=== PATIENT | female | born 1950 | race Caucasian/White ===

== ENCOUNTER → 2020-09-23 08:27 | Outpatient (CLI) | payer MEDICARE, SELFPAY ==
[2020-05-26 13:18] VITALS: BMI 29.2
--- NOTE | 2020-09-23 08:29 | BI_ITS ---
MAMMOGRAPHY - BILATERAL SCREENING REASON FOR EXAM: Female, 69 years old. Routine annual screening examination. PERTINENT HISTORY: Non-contributory. TECHNIQUE: Digital bilateral breast neelam (3D mammographic acquisition) in the CC and MLO projections. 2-D mediolateral oblique (MLO) and craniocaudad (CC) views of both breasts were obtained. CAD: Full Field Digital Mammography with Computer Added Detection was performed. COMPARISON: Comparison is made with prior study dated 05/20/2015. Comparison is also made with prior outside mammogram dated 08/07/2019. FINDINGS: Breast Composition: The breasts are heterogeneously dense, which may obscure small masses. There are no dominant masses or suspicious calcifications. Stable asymmetry of breast tissue with more breast tissue is seen in the retroareolar region of the right breast as compared to the left side. No other significant abnormalities are identified. There has been no significant change since the prior study. BI/SCREEN MAMM (CAD) W/NEELAM BILAT IMPRESSION: Stable bilateral screening mammogram. Yearly follow-up mammogram recommended. (A) ASSESSMENT CATEGORY: BIRADS Category 2: Benign. A letter regarding these results will be sent to the patient by the facility within 30 days. Approximately 10% of breast cancers are not detected by mammography. A normal mammogram should not delay biopsy of a clinically suspicious abnormality. [id number] Electronically Signed: Cruz Castaneda, at 9:27 EST , Service support ,
--- NOTE | 2020-09-23 09:01 | BD_ITS ---
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 COMPARISON: None. FINDINGS: Lumbar Spine (L1-L4): g/cm2 (1.267) / T-score (0.8) / Z-score (2.5) Findings are suggestive of normal bone density with a low fracture risk. Left Femur Total: g/cm2 (1.115) / T-score (0.9) / Z-score (2.3) Left Femoral Neck: g/cm2 (0.877) / T-score (-1.2) / Z-score (0.5) BD/Dexa Bone Density Study IMPRESSION: The patient is considered osteopenic as outlined below according to World Lion Organization (WHO) criteria with a low fracture risk. Reference Information: The T-score is the number of standard deviations above or below the standard which is normal for young adults at their peak bone mineral density. The World Health Organization (WHO) interprets the T-scores as follows: Above -1 Normal bone density Between -1 and -2.5 Osteopenia Equal to / or below -2.5 Osteoporosis As a practical clinical guideline, osteopenia may be graded as follows: Mild -1 through -1.5 Moderate -1.6 through -2.0 Severe -2.1 through -2.4 The Z-score is the number of standard deviations above or below age-matched controls. A Z-score of less than -1.5 would be considered abnormal. References: 1. NIH Osteoporosis and Related Bone Diseases www osteo.org 2. International Society for Clinical Densitometry www iscd.org 3. National Osteoporosis Foundation www nof.org Electronically Signed: Cruz Castaneda, at 10:55 EST , Service support ,
== END ==
PROVIDERS: PCP Internal Medicine; Referring Provider Internal Medicine; Visit Provider Internal Medicine
DX: Z12.31 Encounter for screening mammogram for malignant neoplasm of breast (principal); Z78.0 Asymptomatic menopausal state
CPT/HCPCS: 77063; 77067; 77080

== ENCOUNTER → 2021-07-15 16:32 | Outpatient (CLI) | payer MEDICARE, SELFPAY ==
[2021-07-18 03:07] LABS: Covid Inpatient test code BILL Performed (.)
== END ==
PROVIDERS: PCP Internal Medicine; Visit Provider Internal Medicine
DX: J06.9 Acute upper respiratory infection, unspecified (principal)
CPT/HCPCS: 87635; U0005; U0003

== ENCOUNTER 2021-07-19 06:04 | Inpatient (IN) | payer MEDICARE, SELFPAY ==
[2021-07-19] VITALS (9 sets, daily range): BP systolic 119–140; BP diastolic 60–100; PULSE 68–87; RESP 18–20; TEMP 36.7–39.5; O2SAT 89–97; BMI 31.4; BMI 30.1
--- NOTE | 2021-07-19 06:26 | RAD_ITS ---
STUDY: X-RAY CHEST REASON FOR EXAM: Female, 70 years old. Cough TECHNIQUE: Portable, upright, AP chest radiograph COMPARISON: None. FINDINGS: Diffuse bilateral pulmonary infiltrates. There is no demonstrated pleural abnormality. Normal size heart. Normal mediastinum and aquiles. Normal visualized pulmonary arteries. There is atherosclerotic calcification of the aortic arch with tortuosity. There are diffuse degenerative changes of the visualized thoracic spine. There is degenerative osteoarthritis of the bilateral shoulders. There is no demonstrated abnormality of the visualized soft tissue structures of the upper abdomen. RAD/Chest 1 View (Portable) IMPRESSION: Findings suggest multifocal pneumonia. Electronically Signed: Demarcus Victoria MD at 6:48 EDT Tel , Service support ,
--- NOTE | 2021-07-19 06:26 | EKG12_ITS ---
Test Reason : Blood Pressure : / mmHG Vent. Rate : 078 BPM Atrial Rate : 078 BPM P-R Int : 156 ms QRS Dur : 080 ms QT Int : 346 ms P-R-T Axes : 055 033 027 degrees QTc Int : 394 ms Normal sinus rhythm Normal ECG Confirmed by BELINDA MILLER MD ([id number]), web editor DORIS DURANT ([id number]) on 07/20/2021 1:36:55 PM Referred By: OLIVIA Confirmed By:BELINDA MILLER MD
[2021-07-19 06:35] LABS: Absolute Lymphocyte Count 0.97 X10^3/uL (0.83-4.51); Absolute Neutrophil Count 2.9 X10^3/uL (2.0-7.7); Basophil# 0.01 X10^3/uL; Basophil% 0.2 % (0-1); Hematocrit 38.8 % (37-47); Lymphocyte # 0.97 X10^3/ul (0.83-4.51); Lymphocyte % 23.9 % (19-41); Mean Corp Hgb Conc 33.5 g/dL (32-36); Mean Corpuscular Hgb 30.1 pg (27.0-32.0); Mean Corpuscular Volume 89.8 fL (81-99); Monocyte# 0.13 X10^3/uL; Monocyte% 3.2 % (0-10); NRBC Flagged by Analyzer 0 % (0-5); Neutrophil # 2.89 X10^3/uL (2.7-7.7); Neutrophil % 71.2 % (47-70); POSITIVE MORPHOLOGY YES; Platelet Count 303 K/mm3 (150-450); RBC Distribution Width CV 11.8 % (11.6-14.6); RBC Distribution Width SD 38.5 fl (35.1-43.9); Red Blood Count 4.32 M/mm3 (4.2-5.4); White Blood Count 4.1 K/mm3 (4.4-11.0)
[2021-07-19 06:38] LABS: Differential Indicated SCAN CRITERIA MET
[2021-07-19] MEDS: dexAMETHasone 10 MG/ML Vial IV (06:40)
[2021-07-19 06:46] LABS: Anion Gap 9 (5-15); BUN 15 mg/dL (7-18); BUN/Creat Ratio 19.9 RATIO (10-20); Calcium,Total 8.9 mg/dL (8.5-10.1); Chloride 93 mmol/L (98-107); Creatinine, Serum 0.75 mg/dL (0.55-1.02); EST Glomerular Filtration Rate 81 mL/min (>60); Est Glom Filt Rate - Afr Amer 98 mL/min (>60); Glucose 111 mg/dL (74-106); Magnesium 1.9 mg/dL (1.6-2.6); Sodium Level 129 mmol/L (136-145); Troponin-I HS 14 pg/mL (3.0-54.0)
[2021-07-19 06:52] LABS: Differential Comment SCANNED
[2021-07-19 06:53] LABS: Atypical Lymphocyte RARE %
--- NOTE | 2021-07-19 07:45 | EDS_ITS ---
HPI History of Present Illness Chief Complaint: Weakness Narrative Narrative: Patient is a 70-year-old female from home with no past medical history of lung disorder need for supplemental oxygen. She began having congestion fatigue and cough approximately 10 to 12 days ago. She consulted her family doctor and had a Covid swab obtained. It took approximately 4 to 5 days to return and did come back positive. The family doctor was trying to contact the patient but no one would answer the phone and therefore she sent a nurse to the patient's house. Nurse reports that upon arrival the patient's room air pulse ox was 80% and patient had increased work of breathing. The patient has no need for supplemental oxygen and with her worsening symptoms and hypoxia was sent to the ER for evaluation by EMS. PFSH PFS Home Medications multivitamin with minerals [Multi-Daily W/Minerals] 1 tab PO DAILY 07/19/21 [History Last Taken Unknown] Allergy/AdvReac Type Severity Reaction Status Date / Time No Known Allergies Allergy Unverified 07/19/21 06:08 Surgical History History of right hip replacement Social History (Updated 05/26/20 @ 13:[address] Crystal [place], [place]) Smoking Status: Never smoker alcohol intake: never substance use type: does not use what type of physical activity do you participate in: none ROS ROS ED Constitutional Constitutional ED: Reports chills and fever(s) Eyes Eyes: Denies change in vision ENT ENT ED: Reports rhinorrhea; Denies sore throat Cardiovascular Cardiovascular: Denies chest pain Respiratory/Chest Respiratory/Chest: Reports cough and dyspnea Gastrointestinal Gastrointestinal: Denies abdominal pain, diarrhea, nausea or vomiting Genitourinary Genitourinary ED: Denies dysuria Musculoskeletal Musculoskeletal: Reports myalgias Integumentary Denies rash Neurologic Neurologic: Denies headache(s) Hematologic/Lymphatic Hematologic/Lymphatic: Denies easy bleeding or easy bruising EXAM Physical Exam Const Vital Signs: 07/19/21 06:05 07/19/21 06:10 Temperature 99.5 F H 99.5 F H Temperature Source Oral Oral Pulse Rate 84 84 Respiratory Rate 20 H 20 H Respiratory Effort Normal Non-Labored Blood Pressure 127/100 H 127/100 H Blood Pressure Mean 109 109 Pulse Ox 89 89 Oxygen Delivery Method Room Air Room Air Positive well nourished and well developed General Appearance ED: well developed HEENT Reports moist mucous membranes HEENT Narrative: No tongue or lip swelling no oral lesions no airway edema or compromise. There is cobblestoning the posterior pharynx consistent with sinus drainage Eyes PERRL and EOMs intact bilaterally Neck supple Neck Narrative: Positive anterior cervical lymphadenopathy noted Chest Wall Chest Narrative: Reproducible anterior chest wall pain with palpation diffusely but no bony deformity or crepitance Resp Resp Narrative: Patient has mild tachypnea and accessory muscle use with diminished breath sounds and diffuse expiratory wheezes. Cardio regular rate and regular rhythm GI normal to inspection, nondistended, normoactive bowel sounds, non-tender and non-distended Auscultation: normoactive bowel sounds Palpation: soft Extremity normal to inspection Neuro oriented x3 and CN's II-XII intact bilaterally Sensorium / Orientation: alert Motor Exam: strength 5/5 throughout Psych mental status grossly normal Skin no rashes or lesions noted MDM MDM MDM Narrative Medical decision making narrative: Patient presented to the ER with a low-grade temperature most consistent with her recent Covid diagnosis. The family doctor and EMS reported patient was approximately 80% on room air. On 3 to 4 L nasal cannula she does increased to the mid 90s. With her known Covid diagnosis I elected to perform a chest x-ray initially which did show changes consistent with a Covid pneumonia. Otherwise there is no signs of cardiac damage or signs of sepsis. At this time because of her chest pain a D-dimer will be added and if it is greater than 1.5 a CTA will be ordered. However at this time as the patient has Covid pneumonia and has new onset hypoxia I do not feel it is safe for her to be discharged and she will be admitted to the hospital for further care Lab Data Labs: Laboratory Results - last 24 hr 07/19/21 07/19/21 07/19/21 06:15 06:15 06:15 WBC 4.1 L RBC 4.32 Hgb 13.0 Hct 38.8 MCV 89.8 MCH 30.1 MCHC 33.5 RDW Std Deviation 38.5 RDW Coeff of Saul 11.8 Plt Count 303 MPV 9.0 Immature Gran % (Auto) 1.500 H Neut % (Auto) 71.2 H Lymph % (Auto) 23.9 Henderson % (Auto) 3.2 Eos % (Auto) 0.0 Baso % (Auto) 0.2 Absolute Neuts (auto) 2.9 Absolute Lymphs (auto) 0.97 Nucleated RBC % 0 Differential Comment SCANNED Atypical Lymphocytes RARE Sodium 129 L Potassium 4.0 Chloride 93 L Carbon Dioxide 27.0 Anion Gap 9 BUN 15 Creatinine 0.75 Estim Creat Clear Calc 39.50 Est GFR (MDRD) Af Amer 98 Est GFR (MDRD) Non-Af 81 BUN/Creatinine Ratio 19.9 Glucose 111 H Lactic Acid 1.0 Calcium 8.9 Magnesium 1.9 Troponin I High Sens 14 Radiography Diagnostic Testing: Radiology Impression Chest X-Ray 07/19/21 06:26 IMPRESSION: Findings suggest multifocal pneumonia. Electronically Signed: Demarcus Victoria MD at 6:48 EDT Tel , Service support , Critical Care Time Critical Care Time: Yes Critical care time (excluding procedures): - (33 minutes) Discharge Plan Dx/Rx/DC Orders Clinical Impression: Acute respiratory failure with hypoxia, Pneumonia due to 2019-nCoV Disposition Disposition: Acute Care [facility]
--- NOTE | 2021-07-19 08:28 | HP.PCM.HOS_ITS ---
HPI - General General Date of Admission: 07/19/21 HPI Narrative ELVI ANGEL, is a 70 F with no significant past medical history, sent by PCP Dr. Diaz to ED for evaluation of URI symptoms. She tested positive of COVID- 19 PCR. Patient symptoms of COVID-19 and started with mild abdominal discomfort, diarrhea, loss of taste and smell on July 08. This gradually progressed to cough, URI symptoms with nasal congestion and chest congestion. Cough is dry. Her pulse ox was found in the 80s on room air at home therefore sent to ER. Patient also feels dyspnea on exertion. Patient denies prior chronic lung disease including asthma, COPD or smoking history. Denies chronic heart disease or diabetes mellitus. Twelve-lead EKG individually read as normal sinus rhythm 78 bpm, QTC 394 ms QRS 80 ms. Chest x-ray reviewed shows peripheral groundglass opacity consistent with pneumonia PFSH Home Medications multivitamin with minerals [Multi-Daily W/Minerals] 1 tab PO DAILY 07/19/21 [History Last Taken Unknown] Allergy/AdvReac Type Severity Reaction Status Date / Time No Known Allergies Allergy Unverified 07/19/21 06:08 Surgical History History of right hip replacement Social History Smoking Status: Never smoker alcohol intake: never substance use type: does not use what type of physical activity do you participate in: none ROS ROS Narrative Constitutional: Reports fatigue and weakness HEENT: Reports systems reviewed and no addt'l complaints, except as documented Respiratory/Chest: Pleuritic chest pain on coughing. Gastrointestinal: Denies coffee ground emesis, hematemesis or vomiting Genitourinary: Denies burning urination or new urinary tract symptoms Musculoskeletal: Reports joint pain and limited range of motion Neurologic: Denies seizure-like activity skin: No ulcer. No rash Endocrinology: Reports systems reviewed and no addt'l complaints, except as documented Hematologic/Lymphatic: Reports systems reviewed and no addt'l complaints, except as documented Rest 12 ROS are negative except as mentioned in HPI Vital Signs Vital Signs Vital Signs: 07/19/21 06:05 07/19/21 06:10 Temperature 99.5 F H 99.5 F H Temperature Source Oral Oral Pulse Rate 84 84 Respiratory Rate 20 H 20 H Respiratory Effort Normal Non-Labored Blood Pressure 127/100 H 127/100 H Blood Pressure Mean 109 109 Pulse Ox 89 89 Oxygen Delivery Method Room Air Room Air Weight Weight: 166 lb 7.184 oz Body Mass Index (BMI) 31.4 Physical Exam Narrative General: Alert, Oriented x3, Cooperative HEENT: Atraumatic, PERRLA, EOMI, Normocephalic Oral: No Gingival or Mucosal Lesions/ Ulcerations Neck: Supple, No JVD, Negative Carotid Bruits Lungs: Air entry diminished in bilateral lung bases. No crepitation/rhonchi. Mild hypoxia Cardiovascular: Regular rate, Regular Rhythm, Normal S1, Normal S2, No murmurs Abdomen: Bowel Sounds Present, Soft, Non Tender, Non-Distended : No renal angle tenderness. No suprapubic tenderness. Extremities: No edema, Capillary Refill Less than 3 Seconds Skin: No rashes, No breakdown Musculoskeletal: No Tenderness to Palpation of Joints or Extremities Neurological: Cranial nerves II-XII grossly intact, DTR 2+/4 and Symmetrical, Neuro grossly intact Psych/Mental Status: Normal Affect, Appropriate. Results Lab / Micro Data Result Diagrams: 07/19/21 06:15 07/19/21 06:15 Labs: Laboratory Results - last 24 hr 07/19/21 06:15: WBC 4.1 L, RBC 4.32, Hgb 13.0, Hct 38.8, MCV 89.8, MCH 30.1, MCHC 33.5, RDW Std Deviation 38.5, RDW Coeff of Saul 11.8, Plt Count 303, MPV 9.0, Immature Gran % (Auto) 1.500 H, Neut % (Auto) 71.2 H, Lymph % (Auto) 23.9, Wilbarger % (Auto) 3.2, Eos % (Auto) 0.0, Baso % (Auto) 0.2, Absolute Neuts (auto) 2.9, Absolute Lymphs (auto) 0.97, Nucleated RBC % 0, Differential Comment SCANNED, Atypical Lymphocytes RARE 07/19/21 06:15: Sodium 129 L, Potassium 4.0, Chloride 93 L, Carbon Dioxide 27.0, Anion Gap 9, BUN 15, Creatinine 0.75, Estim Creat Clear Calc 39.50, Est GFR (MDRD) Af Amer 98, Est GFR (MDRD) Non-Af 81, BUN/Creatinine Ratio 19.9, Glucose 111 H, Calcium 8.9, Magnesium 1.9, Troponin I High Sens 14 07/19/21 06:15: Lactic Acid 1.0 Micro: Microbiology 07/19/21 06:20 Nasal Secretion SARS-CoV-2 Antigen (Rapid) - Final SARS-CoV-2 (COVID 19) Radiology Impression Chest X-Ray 07/19/21 06:26 IMPRESSION: Findings suggest multifocal pneumonia. Electronically Signed: Demarcus Victoria MD at 6:48 EDT Tel , Service support , Assessment & Plan Assessment/Plan (1) Pneumonia due to 2019-nCoV: PLAN: This 70-year-old female is being admitted for bilateral COVID-19 pneumonia with mild hypoxia 1. Acute multifocal bilateral COVID-19 pneumonia with hypoxia: Patient is being admitted Medr floor on oxygen to keep pulse ox more than 90%. Decadron 6 mg IV daily started. Patient is out of window for remdesivir. Incentive spirometry PEP and Mucinex D. Consult ID to see any further treatment recommendation. Tongue culture and and ENT consulted 2. Elevated D-dimer: Patient does not have history of previous DVT or PE. CT angiogram ordered. Moderate risk for DVT/PE 3. Moderate hyponatremia and hypochloremia: On IV fluid normal saline VTE prophylaxis: Lovenox 30 mg subcu twice daily. If CT angiogram comes positive for DVT/PE, will convert to full anticoagulation Living will/advanced directive/end of life care: Patient does have living will or advanced directive. After discussion of benefits/risks procedures involved with full code, DNR CC arrest and DNR CC, the patient opted for full code. Patient does want artificial life support including intubation, tube feed, ventilator and/chest compression, central venous catheter, vasopressor and DC shock if needed Total time spent in [id number] encounter in discussion of advanced direc tive 16 minutes. Charges/Coding Visit Charges Inpatient E&M: 07607 Init Hosp L3 Procedures Hospitalists Procedures: 00440 Advncd Care Plan 30 Min
[2021-07-19 08:34] LABS: D-Dimer Quantitative (DVT/PE) 1.42 FEU/ug/m (0.27-0.49)
--- NOTE | 2021-07-19 08:40 | CT_ITS ---
STUDY: CTA CHEST/THORAX REASON FOR EXAM: Female, 70 years old. HIGH D-dimer with Covid 19. WEAKNESS, STOMACH CRAMPS X 12 DAYS RADIATION DOSAGE (If Supplied By Facility): CTDIvol = ( 12.58 ) mGy, DLP = ( 377.86 ) mGycm TECHNIQUE: The examination was performed with the intravenous administration of IV 100mL Isovue-370. Post-processing of the angiographic images was performed, with multiplanar reformation. No 3D reconstruction. Individualized dose optimization techniques were used for this CT. COMPARISON: AP portable upright chest x-ray 0625 hours. FINDINGS: Normal enhancement of the main pulmonary artery and right and left pulmonary arteries. Normal enhancement of the bilateral peripheral pulmonary arteries. There is no demonstrated pulmonary embolism. There is minor atherosclerotic calcification of the aortic arch. There is no demonstrated aortic dissection. Normal heart and pericardium. Normal upper mediastinum and right hilum. There are upper normal-sized lymph nodes in the subcarinal tissues and left hilum. Normal visualized trachea and bronchi. There are ill-defined patchy, groundglass or cotton candy infiltrates predominating in the periphery of the bilateral lung prabhakar, consistent with infection, including viral pneumonia such as Covid 19. Normal pleura. Normal chest wall structures. There are degenerative changes of the thoracic spine with multilevel bridging and near bridging right anterolateral endplate osteophytes at the mid to lower thoracic levels. Normal visualized upper abdomen. CT/CTA Chest W/WO Contrast IMPRESSION: 1. No a demonstrated pulmonary embolism or arterial dissection. 2. Bilateral diffuse, ill-defined, peripheral pulmonary densities consistent with infection, including viral pneumonia such as Covid 19. Electronically Signed: Jonny Yu MD at 9:40 EDT , Service support ,
[2021-07-19 08:42] LABS: Magnesium 2.1 mg/dL (1.6-2.6)
--- NOTE | 2021-07-19 08:44 | PCS.PANDOC ---
PANDEMIC DOCUMENTATION INITIATED: Date: 07/19/21 Time: 843
[2021-07-19] MEDS: Acetaminophen 325 MG Tablet 650 MG PO (10:01)
[2021-07-19] MEDS: 0.9% Normal Saline 1,000 ML 75 ML IV (10:16)
[2021-07-19 11:07] LABS: Prothrombin Time (Protime)PT. 12.3 SECONDS (11.7-14.9)
[2021-07-19 11:08] LABS: Fibrinogen 467 mg/dl (203-444)
[2021-07-19 11:47] LABS: BNP,B-Type NATRIURETIC PEPTIDE 73.8 pg/mL (0-100)
[2021-07-19 11:56] LABS: Procalcitonin < 0.04 ng/mL (0.00-0.09)
[2021-07-19 12:03] LABS: CPK Total, Creatine Kinase 1163 U/L (26-192); LDH 733 U/L (84-246)
[2021-07-19] MEDS: Enoxaparin 30 MG/0.3 ML Syringe SC ×2 (13:15→20:21)
[2021-07-19] MEDS: guaiFENesin/D-Methorphan TAB.SR.12H 1 TABLET PO ×2 (13:15→20:22)
[2021-07-20] VITALS (7 sets, daily range): BP systolic 127–149; BP diastolic 67–84; PULSE 75–89; RESP 18–20; TEMP 36.7–37.4; O2SAT 84–95
[2021-07-20] MEDS: dexAMETHasone 10 MG/ML Vial 6 MG IV (09:25)
[2021-07-20] MEDS: Multivitamins,Ther W-Minerals Tablet 1 TABLET PO (09:25)
[2021-07-20] MEDS: Enoxaparin 30 MG/0.3 ML Syringe SC ×2 (09:26→21:22)
[2021-07-20] MEDS: guaiFENesin/D-Methorphan TAB.SR.12H 1 TABLET PO ×2 (09:26→21:22)
--- NOTE | 2021-07-20 13:47 | CASEMGMT ---
JANICE LAMB Assessment: Face to Face with pt for initial transition planning/care coordination assessment. JANICE LAMB introduced self and role at [facility], pt voices understanding and consents to assessment. Pt is A/O x4 and answers all questions appropriately at this time. Pt sitting up in chair with O2 on in no distress. Care providers, pharmacy, and demographics verified/updated. Admitting Dx: COVID 19 PCP:Joe Specialists:Pt denies [facility]erred [facility]acy[facility] Insurance: Leyda SAENZ Prescription Benefit: yes LW/HPOA: Pt states she has a LW/DPOA and it is her dtr Mony Carcamo. She is aware that it is not on file at [facility] and may bring it in at any time to be scanned into the chart. LNOK:Mony Carcamo, dtsamantha Living Arrangements: Pt lives alone in a duplex with two steps to enter. Pt reports being I in ADL's and denies concerns at home. Transportation: Pt drives self and denies concerns with transportation. DME/HHC/SNF: Pt denies having any DME or hx of HHC or SNF stays. Pt states he was tested for COVID at [facility]. Pt provided with a verbal list of local in network DME companies. Pt chose [employer]. Pt has family and friends who can bring her groceries and supplies. Pt states no concerns with going home at time of dc. Pt states no further concerns/needs. CM to follow. Advised pt to ask CM if any further question/concerns/needs arise, voices understanding. Pt Goal: Home Plan: Home
--- NOTE | 2021-07-20 16:04 | PCM.PN.HOSP ---
Subjective Subjective Patient on 4 L of oxygen. Has mild cough. Objective Data Objective Data Vital Signs: Vital Signs Temp Pulse Resp BP Pulse Ox 98.2 F 83 20 H 142/82 H 95 07/20/21 15:00 07/20/21 15:00 07/20/21 15:00 07/20/21 15:00 07/20/21 15:00 Oxygen Flow Rate (L/min) 4 Oxygen Delivery Method Nasal Cannula Weight: 159 lb 6.307 oz Body Mass Index (BMI) 30.1 Intake & Output: Intake and Output for Last 24 Hours 07/18/21 07/19/21 07/20/21 23:59 23:59 23:59 Intake Total 1200 / 2200 1000 / 1000 Output Total 800 / 800 Balance 400 / 1400 1000 / 1000 Lab / Micro Data Result Diagrams: 07/19/21 06:15 07/19/21 06:15 Micro: Microbiology 07/19/21 10:25 Urine, Random Legionella Antigen - Final 07/19/21 10:25 Urine, Random Streptococcus pneumoniae Antigen (M - Final 07/19/21 06:20 Nasal Secretion SARS-CoV-2 Antigen (Rapid) - Final SARS-CoV-2 (COVID 19) Physical Exam Narrative General: Alert, Oriented x3, Cooperative HEENT: Atraumatic, PERRLA, EOMI, Normocephalic Oral: No Gingival or Mucosal Lesions/ Ulcerations Neck: Supple, No JVD, Negative Carotid Bruits Lungs: Air entry diminished in bilateral lung bases. No crepitations. On 4 L of oxygen Cardiovascular: Regular rate, Regular Rhythm, Normal S1, Normal S2, No murmurs Abdomen: Bowel Sounds Present, Soft, Non Tender, Non-Distended : No renal angle tenderness. No suprapubic tenderness. Extremities: No edema, Capillary Refill Less than 3 Seconds Skin: No rashes, No breakdown Musculoskeletal: No Tenderness to Palpation of Joints or Extremities Neurological: Cranial nerves II-XII grossly intact, DTR 2+/4 and Symmetrical, Neuro grossly intact Psych/Mental Status: Normal Affect, Appropriate. Assessment & Plan Assessment/Plan (1) Pneumonia due to 2019-nCoV: PLAN: This 70-year-old female is being admitted for bilateral COVID-19 pneumonia with mild hypoxia 1. Acute multifocal bilateral COVID-19 pneumonia with hypoxia: Patient is being admitted MedSurg floor on oxygen to keep pulse ox more than 90%. Decadron 6 mg IV daily started. Patient is out of window for remdesivir. Incentive spirometry PEP and Mucinex D. Consult ID to see any further treatment recommendation. 07/20: Discussed with ID. He will continue the same treatment. 2. Elevated D-dimer: Patient does not have history of previous DVT or PE. Bilateral diffuse viral pneumonia consistent with COVID-19 pneumonia. CTA chest shows no demonstrable PE or arterial dissection. 3. Moderate hyponatremia and hypochloremia: On IV fluid normal saline VTE prophylaxis: Lovenox 30 mg subcu twice daily. If CT angiogram comes positive for DVT/PE, will convert to full anticoagulation Living will/advanced directive/end of life care: Patient does have living will or advanced directive. After discussion of benefits/risks procedures involved with full code, DNR CC arrest and DNR CC, the patient opted for full code. Patient does want artificial life support including intubation, tube feed, ventilator and/chest compression, central venous catheter, vasopressor and DC shock if needed Total time spent in [id number] encounter in discussion of advanced directive 16 minutes. Clinical Impression(s) from Imaging Studies Chest X-Ray 07/19/21 06:26 IMPRESSION: Findings suggest multifocal pneumonia. Chest CTA 07/19/21 08:40 IMPRESSION: 1. No a demonstrated pulmonary embolism or arterial dissection. 2. Bilateral diffuse, ill-defined, peripheral pulmonary densities consistent with infection, including viral pneumonia such as Covid 19. Electronically Signed: Jonny Yu MD at 9:40 EDT , Service support , Charges/Coding Visit Charges Inpatient E&M: 48011 Subs Hosp L2
[2021-07-21] VITALS (8 sets, daily range): BP systolic 129–148; BP diastolic 71–91; PULSE 72–84; RESP 18–24; TEMP 36.1–37.1; O2SAT 87–95
--- NOTE | 2021-07-21 09:17 | PCM.DC ---
Discharge Instructions Diet Discharge Diet: No restrictions Activity Discharge Activity: Return to Normal Activity and - (Self quarantine for 3 weeks from the onset of her symptoms.) Dressing / Incision Call your doctor if you observe: Fever of 101 or Higher, Coldness, Increased Pain, Numbness or Tingling, Change in Color, Inability to urinate, Inability to have a bowel movement, Using more than 1 pad per hour, Shortness of breath, Dizziness, Fainting spells, Swelling in the ankles, Chest pain, Prolonged hiccupping, Increased palpitations (irregular heartbeat), Calf discomfort and Uncontrolled pain Follow Up Care Test Results: Test results from this visit will be discussed in further detail at your follow-up appointment, if applicable. Discharge Plan Admission Admit Date/Time: 07/19/21 08:26 Primary Reason for Your Visit: Acute hypoxic respiratory failure secondary to COVID-19 pneumonia Attending Provider: Sven Salinas Primary Care Provider: Mona Diaz Instructions Patient Instructions: COVID-19: Lying in a Prone Position (Proning) Additional Instructions / Restrictions: Incentive spirometry, 10 reps 4 times daily and Pep to continue for 2 weeks. Nursing staff to educate about incentive spirometry and Pep Discharge Orders/Prescriptions Prescriptions: New Mucus DM 30-600 mg Tablet Extended Release 12 Hr 2 tab PO BID Qty: 20 RF: 0 dexamethasone 6 mg tablet 6 mg PO DAILY Qty: 7 RF: 0 Eliquis 2.5 mg tablet 2.5 mg PO BID Qty: 30 RF: 0 No Action multivitamin with minerals [Multi-Daily W/Minerals] Tablet 1 tab PO DAILY RF: 0 Referrals / Follow Up: Mona Diaz MD [Primary Care Provider] - In 1 Week (Follow-up for COVID-19 pneumonia.) Disposition Disposition (needs filled in before D/C Order can be placed): Home, Self Care
[2021-07-21] MEDS: Multivitamins,Ther W-Minerals Tablet 1 TABLET PO (09:18)
[2021-07-21] MEDS: dexAMETHasone 10 MG/ML Vial 6 MG IV (09:19)
[2021-07-21] MEDS: Enoxaparin 30 MG/0.3 ML Syringe SC ×2 (09:19→22:05)
[2021-07-21] MEDS: 0.9% Saline Lock 10 ML Syringe IV (09:19)
[2021-07-21] MEDS: guaiFENesin/D-Methorphan TAB.SR.12H 1 TABLET PO ×2 (09:19→22:05)
--- NOTE | 2021-07-21 12:42 | PN.HOSP_ITS ---
Subjective Subjective Patient has mild dry cough but stable on 4 L of oxygen. On walking her pulse ox dropped to 87% on 6 L of oxygen therefore discharged on hold. Objective Data Objective Data Vital Signs: Vital Signs Temp Pulse Resp BP Pulse Ox 97.9 F 83 24 H 129/71 H 93 07/21/21 09:00 07/21/21 09:00 07/21/21 09:00 07/21/21 09:00 07/21/21 10:00 Oxygen Flow Rate (L/min) 4 Oxygen Delivery Method Nasal Cannula Weight: 159 lb 6.307 oz Body Mass Index (BMI) 30.1 Intake & Output: Intake and Output for Last 24 Hours 07/19/21 07/20/21 07/21/21 23:59 23:59 23:59 Intake Total 1200 / 2200 1979 780 / 780 Output Total 800 / 800 Balance 400 / 1400 1979 780 / 780 Lab / Micro Data Result Diagrams: 07/19/21 06:15 07/19/21 06:15 Micro: Microbiology 07/19/21 10:25 Urine, Random Legionella Antigen - Final 07/19/21 10:25 Urine, Random Streptococcus pneumoniae Antigen (M - Final 07/19/21 06:20 Nasal Secretion SARS-CoV-2 Antigen (Rapid) - Final SARS-CoV-2 (COVID 19) Physical Exam Narrative General: Alert, Oriented x3, Cooperative HEENT: Atraumatic, PERRLA, EOMI, Normocephalic Oral: No Gingival or Mucosal Lesions/ Ulcerations Neck: Supple, No JVD, Negative Carotid Bruits Lungs: Air entry diminished in bilateral lung bases. Mild bilateral crepitations. Hypoxia present. Cardiovascular: Regular rate, Regular Rhythm, Normal S1, Normal S2, No murmurs Abdomen: Bowel Sounds Present, Soft, Non Tender, Non-Distended : No renal angle tenderness. No suprapubic tenderness. Extremities: No edema, Capillary Refill Less than 3 Seconds Skin: No rashes, No breakdown Musculoskeletal: No Tenderness to Palpation of Joints or Extremities Neurological: Cranial nerves II-XII grossly intact, DTR 2+/4 and Symmetrical, Neuro grossly intact Psych/Mental Status: Normal Affect, Appropriate. Assessment & Plan Assessment/Plan (1) Pneumonia due to 2019-nCoV: PLAN: This 70-year-old female is being admitted for bilateral COVID-19 pneumonia with mild hypoxia 1. Acute multifocal bilateral COVID-19 pneumonia with hypoxia: [facility] oxygen to keep pulse ox more than 90%. Decadron 6 mg IV daily started. Patient is out of window for remdesivir. Incentive spirometry PEP and Mucinex D. Consult ID to see any further treatment recommendation. 07/20: Discussed with ID. He will continue the same treatment. 07/21: Pulse ox dropped to 87% on 6 L of oxygen. Patient encouraged incentive spirometry and Pep. Continue same treatment. Follow-up labs tomorrow. 2. Elevated D-dimer: Patient does not have history of previous DVT or PE. Bilateral diffuse viral pneumonia consistent with COVID-19 pneumonia. CTA chest shows no demonstrable PE or arterial dissection. 3. Moderate hyponatremia and hypochloremia: On IV fluid normal saline VTE prophylaxis: Lovenox 30 mg subcu twice daily. If CT angiogram comes positive for DVT/PE, will convert to full anticoagulation Living will/advanced directive/end of life care: Patient does have living will or advanced directive. After discussion of benefits/risks procedures involved with full code, DNR CC arrest and DNR CC, the patient opted for full code. Patient does want artificial life support including intubation, tube feed, arun tilator and/chest compression, central venous catheter, vasopressor and DC shock if needed Total time spent in [id number] encounter in discussion of advanced directive 16 minutes. Clinical Impression(s) from Imaging Studies Chest X-Ray 07/19/21 06:26 IMPRESSION: Findings suggest multifocal pneumonia. Chest CTA 07/19/21 08:40 IMPRESSION: 1. No a demonstrated pulmonary embolism or arterial dissection. 2. Bilateral diffuse, ill-defined, peripheral pulmonary densities consistent with infection, including viral pneumonia such as Covid 19. Electronically Signed: Jonny Yu MD at 9:40 EDT , Service support , Charges/Coding Visit Charges Inpatient E&M: 60678 Subs Hosp L2
[2021-07-21] MEDS: Potassium Chloride Oral Tablet 20 MEQ PO (15:07)
--- NOTE | 2021-07-21 23:25 | PCS.PANDOC ---
PANDEMIC DOCUMENTATION INITIATED: Date: 06/22/2021 Time: 190
[2021-07-22] VITALS (10 sets, daily range): BP systolic 136–148; BP diastolic 77–93; PULSE 73–94; RESP 18–20; TEMP 36.6–36.8; O2SAT 87–94
[2021-07-22 06:16] LABS: Absolute Lymphocyte Count 1.25 X10^3/uL (0.83-4.51); Absolute Neutrophil Count 5.1 X10^3/uL (2.0-7.7); Basophil# 0.02 X10^3/uL; Basophil% 0.3 % (0-1); Hematocrit 35.6 % (37-47); Hemoglobin 12.1 g/dL (12.0-15.0); Lymphocyte # 1.25 X10^3/ul (0.83-4.51); Lymphocyte % 17.7 % (19-41); Mean Corpuscular Hgb 30.5 pg (27.0-32.0); Mean Corpuscular Volume 89.7 fL (81-99); Mean Platelet Vol. 8.6 fl (6.2-12.0); Monocyte# 0.44 X10^3/uL; Monocyte% 6.2 % (0-10); NRBC Flagged by Analyzer 0 % (0-5); Neutrophil # 5.07 X10^3/uL (2.7-7.7); Neutrophil % 71.8 % (47-70); POSITIVE MORPHOLOGY YES; Platelet Count 409 K/mm3 (150-450); RBC Distribution Width CV 11.9 % (11.6-14.6); RBC Distribution Width SD 39.2 fl (35.1-43.9); Red Blood Count 3.97 M/mm3 (4.2-5.4); White Blood Count 7.1 K/mm3 (4.4-11.0)
[2021-07-22 06:21] LABS: Differential Indicated SCAN CRITERIA MET
[2021-07-22 06:37] LABS: Anion Gap 7 (5-15); BUN 16 mg/dL (7-18); BUN/Creat Ratio 24.9 RATIO (10-20); Calcium,Total 8.7 mg/dL (8.5-10.1); Chloride 101 mmol/L (98-107); Creatinine, Serum 0.64 mg/dL (0.55-1.02); EST Glomerular Filtration Rate 97 mL/min (>60); Est Glom Filt Rate - Afr Amer 117 mL/min (>60); Glucose 99 mg/dL (74-106); Potassium 4.1 mmol/L (3.5-5.1); Sodium Level 133 mmol/L (136-145)
[2021-07-22 06:48] LABS: Differential Comment SCANNED
[2021-07-22] MEDS: Enoxaparin 30 MG/0.3 ML Syringe SC ×2 (09:08→21:45)
[2021-07-22] MEDS: dexAMETHasone 10 MG/ML Vial 6 MG IV (09:08)
[2021-07-22] MEDS: guaiFENesin/D-Methorphan TAB.SR.12H 1 TABLET PO ×2 (09:09→21:50)
[2021-07-22] MEDS: Multivitamins,Ther W-Minerals Tablet 1 TABLET PO (09:09)
[2021-07-22] MEDS: Lisinopril 10 MG Tablet PO (09:09)
[2021-07-22] MEDS: 0.9% Saline Lock 10 ML Syringe IV ×2 (09:09→14:39)
--- NOTE | 2021-07-22 13:23 | PN.HOSP_ITS ---
Subjective Subjective Oxygen requirement varies from 4 to 7 L depending upon exertion. Mild short of breath. Patient wants to go home. Objective Data Objective Data Vital Signs: Vital Signs Temp Pulse Resp BP Pulse Ox 97.9 F 94 18 136/77 H 94 07/22/21 12:57 07/22/21 12:57 07/22/21 12:57 07/22/21 12:57 07/22/21 12:57 Oxygen Flow Rate (L/min) 7 Oxygen Delivery Method Nasal Cannula Weight: 159 lb 6.307 oz Body Mass Index (BMI) 30.1 Intake & Output: Intake and Output for Last 24 Hours 07/20/21 07/21/21 07/22/21 23:59 23:59 23:59 Intake Total 1979 780 / 780 800 / 800 Balance 1979 780 / 780 800 / 800 Lab / Micro Data Result Diagrams: 07/22/21 06:10 07/22/21 06:10 Labs: Laboratory Results - last 24 hr 07/22/21 06:10: WBC 7.1, RBC 3.97 L, Hgb 12.1, Hct 35.6 L, MCV 89.7, MCH 30.5, MCHC 34.0, RDW Std Deviation 39.2, RDW Coeff of Saul 11.9, Plt Count 409, MPV 8 .6, Immature Gran % (Auto) 4.000 H, Neut % (Auto) 71.8 H, Lymph % (Auto) 17.7 L, [place] % (Auto) 6.2, Eos % (Auto) 0.0, Baso % (Auto) 0.3, Absolute Neuts (auto) 5.1, Absolute Lymphs (auto) 1.25, Nucleated RBC % 0, Differential Comment SCANNED 07/22/21 06:10: Sodium 133 L, Potassium 4.1, Chloride 101, Carbon Dioxide 25.0, Anion Gap 7, BUN 16, Creatinine 0.64, Estim Creat Clear Calc 39.50, Est GFR (MDRD) Af Amer 117, Est GFR (MDRD) Non-Af 97, BUN/Creatinine Ratio 24.9 H, Glucose 99, Calcium 8.7 Micro: Microbiology 07/19/21 10:25 Urine, Random Legionella Antigen - Final 07/19/21 10:25 Urine, Random Streptococcus pneumoniae Antigen (M - Final 07/19/21 06:20 Nasal Secretion SARS-CoV-2 Antigen (Rapid) - Final SARS-CoV-2 (COVID 19) Physical Exam Narrative General: Alert, Oriented x3, Cooperative HEENT: Atraumatic, PERRLA, EOMI, Normocephalic Oral: No Gingival or Mucosal Lesions/ Ulcerations Neck: Supple, No JVD, Negative Carotid Bruits Lungs: Air entry diminished in bilateral lung bases. Mild shortness of breath bilateral crepitations. Hypoxia present. Cardiovascular: Regular rate, Regular Rhythm, Normal S1, Normal S2, No murmurs Abdomen: Bowel Sounds Present, Soft, Non Tender, Non-Distended : No renal angle tenderness. No suprapubic tenderness. Extremities: No edema, Capillary Refill Less than 3 Seconds Skin: No rashes, No breakdown Musculoskeletal: No Tenderness to Palpation of Joints or Extremities Neurological: Cranial nerves II-XII grossly intact, DTR 2+/4 and Symmetrical, Neuro grossly intact Psych/Mental Status: Flat affect. Assessment & Plan Assessment/Plan (1) Pneumonia due to 2019-nCoV: PLAN: This 70-year-old female is being admitted for bilateral COVID-19 pneumonia with mild hypoxia 1. Acute multifocal bilateral COVID-19 pneumonia with hypoxia: Patient is being admitted [facility] floor on oxygen to keep pulse ox more than 90%. Decadron 6 mg IV daily started. Patient is out of window for remdesivir. Incentive spirometry PEP and Mucinex D. Consult ID to see any further treatment recommendation. 07/20: Discussed with ID. He will continue the same treatment. 07/21: Pulse ox dropped to 87% on 6 L of oxygen. Patient encouraged incentive s pirometry and Pep. Continue same treatment. Follow-up labs tomorrow. 07/22: Continue oxygen support. Advised the nurse to put high flow oxygen. ABG shows neutrophilia with lymphopenia. Mild hyponatremia. Continue IV fluid normal saline. CK tomorrow a.m. 2. Elevated D-dimer: Patient does not have history of previous DVT or PE. Bilateral diffuse viral pneumonia consistent with COVID-19 pneumonia. CTA chest shows no demonstrable PE or arterial dissection. 3. Moderate hyponatremia and hypochloremia, elevated CK 1163 on 07/19. : On IV fluid normal saline. CK level is not high to to meet criteria for rhabdomyolysis VTE prophylaxis: Lovenox 30 mg subcu twice daily. If CT angiogram comes positive for DVT/PE, will convert to full anticoagulation Living will/advanced directive/end of life care: Patient does have living will or advanced directive. After discussion of benefits/risks procedures involved with full code, DNR CC arrest and DNR CC, the patient opted for full code. Patient does want artificial life support including intubation, tube feed, ventilator and/chest compression, central venous catheter, vasopressor and DC shock if needed Total time spent in [id number] encounter in discussion of advanced directive 16 minutes. Clinical Impression(s) from Imaging Studies Chest X-Ray 07/19/21 06:26 IMPRESSION: Findings suggest multifocal pneumonia. Chest CTA 07/19/21 08:40 IMPRESSION: 1. No a demonstrated pulmonary embolism or arterial dissection. 2. Bilateral diffuse, ill-defined, peripheral pulmonary densities consistent with infection, including viral pneumonia such as Covid 19. Electronically Signed: Jonny Yu MD at 9:40 EDT , Service support , Charges/Coding Visit Charges Inpatient E&M: 01522 Subs Hosp L2
[2021-07-22] MEDS: 0.9% Normal Saline 1,000 ML 100 ML IV (14:39)
--- NOTE | 2021-07-22 16:37 | CHAPLAIN ---
Type of Pastoral Visit ___ Initial Visit ___ Follow-up Visit ___ On-call Visit ___ General Patient Visit ___ Spiritual Assessment ___ Family Conference ___ Bereavement ___ Rapid Response ___ Code Blue _x__ Other (describe below) Pastoral Care Referral From _x__ Patient ___ Family ___ Nurse ___ Physician ___ Boring Mill Operator [employer] ___ Creative Intern ___ Other (describe below) Sacrament/Intervention _x__ Active listening ___ Anointing ___ Rastafari ___ Bereavement ___ Communion _x__ Carmel exploration ___ ___ Life review _x__ Prayer ___ Reconciliation ___ Sacrament of Sick ___ Supportive presence ___ Wedding ___ Other (describe below) Pastoral Comments patient was reached on phone; pt states that she is doing better and would like spiritual care and prayer; pt has yazidism connection and many praying friends she reports;
[2021-07-23] VITALS (17 sets, daily range): BP systolic 116–160; BP diastolic 80–105; PULSE 78–103; RESP 18–30; TEMP 36.3–37.4; O2SAT 86–95
[2021-07-23] MEDS: Albuterol 2.5 MG/3 ML VIAL.NEB. INHALATION (05:55)
[2021-07-23 07:01] LABS: BUN 15 mg/dL (7-18); Creatinine, Serum 0.65 mg/dL (0.55-1.02); EST Glomerular Filtration Rate 95 mL/min (>60); Glucose 97 mg/dL (74-106)
[2021-07-23 07:02] LABS: ALB/GLOB Ratio 0.6 RATIO (0.9-2.4); AST(SGOT) 94 U/L (15-37); Alanine Aminotransfer ALT/SGPT 196 U/L (13-56); Albumin, Serum 2.5 g/dL (3.2-5.0); Alkaline Phosphatase 19 U/L (45-117); Anion Gap 8 (5-15); BUN/Creat Ratio 22.9 RATIO (10-20); CPK Total, Creatine Kinase 254 U/L (26-192); Calcium,Total 8.6 mg/dL (8.5-10.1); Chloride 101 mmol/L (98-107); Est Glom Filt Rate - Afr Amer 115 mL/min (>60); Globulin 4.2 g/dL (2.2-4.2); Potassium 3.9 mmol/L (3.5-5.1); Protein, Total 6.7 g/dL (6.4-8.2); Sodium Level 131 mmol/L (136-145)
[2021-07-23] MEDS: Enoxaparin 30 MG/0.3 ML Syringe SC ×2 (08:19→21:50)
[2021-07-23] MEDS: dexAMETHasone 10 MG/ML Vial 6 MG IV (08:20)
[2021-07-23] MEDS: Lisinopril 10 MG Tablet PO (08:20)
[2021-07-23] MEDS: Multivitamins,Ther W-Minerals Tablet 1 TABLET PO (08:20)
[2021-07-23] MEDS: guaiFENesin/D-Methorphan TAB.SR.12H 1 TABLET PO ×2 (08:20→21:50)
--- NOTE | 2021-07-23 08:28 | NURSING ---
pt up to bsc and pox dropped to 84% with very little exertion. pt o2 up to 15l and back to bed in prone positioning. spo2 back up to 93%. will talk with cps today to possible get airvo on
--- NOTE | 2021-07-23 16:46 | PN.HOSP_ITS ---
Subjective Subjective Patient is more short of breath, dyspnea at rest. On ARIVO. Patient family said I do not want to get intubated on ventilator or CPR. No chest pain or tightness Objective Data Objective Data Vital Signs: Vital Signs Temp Pulse Resp BP Pulse Ox 99.4 F H 96 24 H 138/105 H 95 07/23/21 13:29 07/23/21 13:42 07/23/21 13:42 07/23/21 13:29 07/23/21 13:42 Oxygen Flow Rate (L/min) 15 Oxygen Delivery Method Airvo Weight: 159 lb 6.307 oz Body Mass Index (BMI) 30.1 Intake & Output: Intake and Output for Last 24 Hours 07/21/21 07/22/21 07/23/21 23:59 23:59 23:59 Intake Total 780 / 780 1300 / 1300 1173.33 / 1173.33 Output Total 800 / 800 Balance 780 / 780 500 / 500 1173.33 / 1173.33 Lab / Micro Data Result Diagrams: 07/22/21 06:10 07/23/21 06:10 Labs: Laboratory Results - last 24 hr 07/23/21 06:10: Sodium 131 L, Potassium 3.9, Chloride 101, Carbon Dioxide 22.0, Anion Gap 8, BUN 15, Creatinine 0.65, Estim Creat Clear Calc 39.50, Est GFR (MDRD) Af Amer 115, Est GFR (MDRD) Non-Af 95, BUN/Creatinine Ratio 22.9 H, Glucose 97, Calcium 8.6, Total Bilirubin 0.60, AST 94 H, ALT 196 H, Alkaline Phosphatase 19 L, Total Creatine Kinase 254 H, Total Protein 6.7, Albumin 2.5 L, Globulin 4.2, Albumin/Globulin Ratio 0.6 L Micro: Microbiology 07/19/21 10:25 Urine, Random Legionella Antigen - Final 07/19/21 10:25 Urine, Random Streptococcus pneumoniae Antigen (M - Final 07/19/21 06:20 Nasal Secretion SARS-CoV-2 Antigen (Rapid) - Final SARS-CoV-2 (COVID 19) Physical Exam Narrative General: Alert, Oriented x3, Cooperative HEENT: Atraumatic, PERRLA, EOMI, Normocephalic Oral: No Gingival or Mucosal Lesions/ Ulcerations Neck: Supple, No JVD, Negative Carotid Bruits Lungs: Air entry diminished in bilateral lung bases. Dyspnea at rest. Bilateral crepitations. Hypoxia present. Cardiovascular: Regular rate, Regular Rhythm, Normal S1, Normal S2, No murmurs Abdomen: Bowel Sounds Present, Soft, Non Tender, Non-Distended : No renal angle tenderness. No suprapubic tenderness. Extremities: No edema, Capillary Refill Less than 3 Seconds Skin: No rashes, No breakdown Musculoskeletal: No Tenderness to Palpation of Joints or Extremities Neurological: Cranial nerves II-XII grossly intact, DTR 2+/4 and Symmetrical, Neuro grossly intact Psych/Mental Status: Flat affect. Assessment & Plan Assessment/Plan (1) Pneumonia due to 2019-nCoV: PLAN: This 70-year-old female is being admitted for bilateral COVID-19 pneumonia with mild hypoxia 1. Acute multifocal bilateral COVID-19 pneumonia with hypoxia: Patient is being admitted [facility] floor on oxygen to keep pulse ox more than 90%. Decadron 6 mg IV daily started. Patient is out of window for remdesivir. Incentive spirometry PEP and Mucinex D. Consult ID to see any further treatment recommendation. 07/20: Discussed with ID. He will continue the same treatment. 07/21: Pulse ox dropped to 87% on 6 L of oxygen. Patient encouraged incentive spirometry and Pep. Continue same treatment. 07/22: Continue oxygen support. Advised the nurse to put high flow oxygen. ABG shows neutrophilia with lymphopenia. Mild hyponatremia. Continue IV fluid normal saline. 07/23: Patient tachypneic, AIRVO, severe hypoxia. Discussed with the non acoustic operator. ID reconsulted and he approved Barcitinib 4 mg daily. ALT and AST elevated. 2. Elevated D-dimer: Patient does not have history of previous DVT or PE. Bilateral diffuse viral pneumonia consistent with COVID-19 pneumonia. CTA chest shows no demonstrable PE or arterial dissection. 3. Moderate hyponatremia and hypochloremia, elevated CK 1163 on 07/19. : On IV fluid normal saline. CK level is not high to to meet criteria for rhabdomyolysis. Repeat CK 254. VTE prophylaxis: Lovenox 30 mg subcu twice daily. If CT angiogram comes positive for DVT/PE, will convert to full anticoagulation Total time of the visit including total time spent in counseling or coordination of care, (more than 50% of the total time, spent in obtaining medical information from nurses and other ancillary care providers,explaining to the patient about labs, imaging, diagnosis and management), discussion with ID and tree and shrub technician, review of labs and imaging is 30 minutes. Living will/advanced directive/end of life care: Patient does have living will or advanced directive. After discussion of benefits/risks procedures involved with full code, DNR CC arrest and DNR CC, the patient today 07/23/2021 changed her wish to DNR CC arrest with no intubation. Patient does not want artificial life support including intubation, tube feed, ventilator and/chest compression, central venous catheter, vasopressor and DC shock if needed Total time spent in [id number] encounter in discussion of advanced directive 16 minutes. Laboratory Results 07/23/21 06:10: Sodium 131 L, Potassium 3.9, Chloride 101, Carbon Dioxide 22.0, Anion Gap 8, BUN 15, Creatinine 0.65, Estim Creat Clear Calc 39.50, Est GFR (MDRD) Af Amer 115, Est GFR (MDRD) Non-Af 95, BUN/Creatinine Ratio 22.9 H, Glucose 97, Calcium 8.6, Total Bilirubin 0.60, AST 94 H, ALT 196 H, Alkaline Phosphatase 19 L, Total Creatine Kinase 254 H, Total Protein 6.7, Albumin 2.5 L, Globulin 4.2, Albumin/Globulin Ratio 0.6 L Clinical Impression(s) from Imaging Studies Chest X-Ray 07/19/21 06:26 IMPRESSION: Findings suggest multifocal pneumonia. Chest CTA 07/19/21 08:40 IMPRESSION: 1. No a demonstrated pulmonary embolism or arterial dissection. 2. Bilateral diffuse, ill-defined, peripheral pulmonary densities consistent with infection, including viral pneumonia such as Covid 19. Electronically Signed: Jonny Yu MD at 9:40 EDT , Service support , Charges/Coding Visit Charges Inpatient E&M: 28075 Subs Hosp L3
--- NOTE | 2021-07-23 17:05 | RAD_ITS ---
STUDY: X-RAY CHEST REASON FOR EXAM: Female, 70 years old. Dyspnea at rest. COVID 19 pneumonia. TECHNIQUE: Single frontal view of the chest. COMPARISON: 07/19/2021. FINDINGS: Stable patchy peripheral opacities in both lung prabhakar. There is no demonstrated pleural abnormality. Normal size heart. Normal mediastinum and aqulies. Normal visualized pulmonary arteries. Normal visualized aortic arch and descending thoracic aorta. Normal visualized ribs, clavicles, and shoulders. There is no demonstrated abnormality of the visualized soft tissue structures of the upper abdomen. RAD/Chest 1 View (Portable) IMPRESSION: Stable chest with no acute superimposed finding. Electronically Signed: Jaret Orta MD at 18:55 EDT , Service support ,
[2021-07-24] VITALS (12 sets, daily range): BP systolic 142–160; BP diastolic 83–94; PULSE 77–93; RESP 20–24; TEMP 36.6–37.3; O2SAT 90–95
[2021-07-24 06:37] LABS: Hematocrit 33.5 % (37-47); Hemoglobin 11.7 g/dL (12.0-15.0); Mean Corp Hgb Conc 34.9 g/dL (32-36); Mean Corpuscular Hgb 30.4 pg (27.0-32.0); Mean Platelet Vol. 8.6 fl (6.2-12.0); Platelet Count 471 K/mm3 (150-450); RBC Distribution Width CV 11.7 % (11.6-14.6); RBC Distribution Width SD 37.2 fl (35.1-43.9); Red Blood Count 3.85 M/mm3 (4.2-5.4); White Blood Count 13.6 K/mm3 (4.4-11.0)
[2021-07-24 07:00] LABS: D-Dimer Quantitative (DVT/PE) 1.21 FEU/ug/m (0.27-0.49)
[2021-07-24 07:02] LABS: ALB/GLOB Ratio 0.6 RATIO (0.9-2.4); AST(SGOT) 87 U/L (15-37); Alanine Aminotransfer ALT/SGPT 171 U/L (13-56); Albumin, Serum 2.4 g/dL (3.2-5.0); Alkaline Phosphatase 18 U/L (45-117); Anion Gap 9 (5-15); BUN 13 mg/dL (7-18); BUN/Creat Ratio 22.8 RATIO (10-20); Calcium,Total 8.5 mg/dL (8.5-10.1); Chloride 96 mmol/L (98-107); Creatinine, Serum 0.57 mg/dL (0.55-1.02); EST Glomerular Filtration Rate 112 mL/min (>60); Est Glom Filt Rate - Afr Amer 135 mL/min (>60); Globulin 4.1 g/dL (2.2-4.2); Glucose 106 mg/dL (74-106); LDH 842 U/L (84-246); Potassium 3.6 mmol/L (3.5-5.1); Protein, Total 6.5 g/dL (6.4-8.2); Sodium Level 126 mmol/L (136-145)
[2021-07-24] MEDS: dexAMETHasone 10 MG/ML Vial 6 MG IV (10:00)
[2021-07-24] MEDS: Enoxaparin 30 MG/0.3 ML Syringe SC (10:00)
[2021-07-24] MEDS: guaiFENesin/D-Methorphan TAB.SR.12H 1 TABLET PO ×2 (10:00→22:06)
[2021-07-24] MEDS: Multivitamins,Ther W-Minerals Tablet 1 TABLET PO (10:00)
[2021-07-24] MEDS: Lisinopril 10 MG Tablet PO (10:00)
--- NOTE | 2021-07-24 15:56 | PCM.CONS.GEN ---
Assessment & Plan Assessment/Plan (1) Acute respiratory failure with hypoxia: (2) Pneumonia due to 2019-nCoV: PLAN: Sx started around 07/08/21. 20 days of quarantine. Unvaccinated. Not remdesivir candidate due to timing of symptoms. On dex. Worsened O2, started baricitinib 07/23. Reviewed EUA with her. CT showed no PE. Recommended vaccine after infection resolves. Will follow, thank you, d/w Dr. Salinas yesterday. HPI Consult Data Date of Consult: 07/24/21 HPI Narrative HPI Narrative: ELVI ANGEL, is a 70 F who presented 07/19 with 2 weeks of cough, diarrhea, change in taste, fatigue, fever, progressive dyspnea. Unvaccinated. Lives alone. Admitted on dex, now on airvo, worsened O2, so baricitinib started 07/23. Feeling ok today. Full ROS performed and neg except as noted above. PFSH Home Medications multivitamin with minerals [Multi-Daily W/Minerals] 1 tab PO DAILY 07/19/21 [History Last Taken Unknown] apixaban [Eliquis] 2.5 mg PO BID #30 tab 07/21/21 [Rx Last Taken Unknown] dexamethasone 6 mg PO DAILY #7 tab 07/21/21 [Rx Last Taken Unknown] dextromethorphan-guaifenesin [Mucus DM] 2 tab PO BID #20 tab 07/21/21 [Rx Last Taken Unknown] lisinopril 10 mg DAILY 07/21/21 [History Last Taken 07/18/21] Allergy/AdvReac Type Severity Reaction Status Date / Time No Known Allergies Allergy Unverified 07/19/21 06:08 Surgical History (Updated 07/19/21 @ 16:36 by Brittney Joseph) History of appendectomy History of right hip replacement Social History Smoking Status: Never smoker alcohol intake: never substance use type: does not use what type of physical activity do you participate in: none Physical Exam Const alert and no apparent distress General Appearance: cooperative HEENT normocephalic and head/scalp atraumatic Eyes PERRL and EOMs intact bilaterally Neck supple and No nodes Resp Auscultation: diminished lung sounds Cardio regular rate and regular rhythm GI normal to inspection, nondistended, normoactive bowel sounds Extremity no clubbing, cyanosis or edema Skin no rashes or lesions noted Neuro CN's II-XII intact bilaterally Lab / Micro Data Result Diagrams: 07/24/21 06:30 07/24/21 06:30 Labs: Laboratory Results - last 24 hr 07/24/21 06:30: WBC 13.6 H, RBC 3.85 L, Hgb 11.7 L, Hct 33.5 L, MCV 87.0, MCH 30.4, MCHC 34.9, RDW Std Deviation 37.2, RDW Coeff of Saul 11.7, Plt Count 471 H, MPV 8.6 07/24/21 06:30: Sodium 126 L, Potassium 3.6, Chloride 96 L, Carbon Dioxide 21.0, Anion Gap 9, BUN 13, Creatinine 0.57, Estim Creat Clear Calc 39.50, Est GFR (MDRD) Af Amer 135, Est GFR (MDRD) Non-Af 112, BUN/Creatinine Ratio 22.8 H, Glucose 106, Calcium 8.5, Total Bilirubin 0.60, AST 87 H, ALT 171 H, Alkaline Phosphatase 18 L, Lactate Dehydrogenase 842 H, Total Protein 6.5, Albumin 2.4 L, Globulin 4.1, Albumin/Globulin Ratio 0.6 L 07/24/21 06:30: D-Dimer Quant (PE/DVT) 1.21 H* Radiology Impression Chest X-Ray 07/23/21 17:05 IMPRESSION: Stable chest with no acute superimposed finding. Electronically Signed: Jaret Orta MD at 18:55 EDT , Service support ,
--- NOTE | 2021-07-24 16:25 | NURSING ---
Update given to Mony per pts request.
--- NOTE | 2021-07-24 19:53 | PCM.PN.HOSP ---
Subjective Subjective Patient was seen and examined today, she is currently on 10 L oxygen via nasal cannula. Patient does not complain of any shortness of breath at rest. Patient is receiving dexamethasone and baricitinib. Objective Data Objective Data Vital Signs: Vital Signs Temp Pulse Resp BP Pulse Ox 99.1 F 93 20 H 160/86 H 92 07/24/21 14:49 07/24/21 14:49 07/24/21 14:49 07/24/21 14:49 07/24/21 19:48 Oxygen Flow Rate (L/min) 10 Oxygen Delivery Method Nasal Cannula Weight: 72.3 kg Body Mass Index (BMI) 30.1 Intake & Output: Intake and Output for Last 24 Hours 07/22/21 07/23/21 07/24/21 23:59 23:59 23:59 Intake Total 1300 / 1300 1173.33 / 1173.33 960 / 960 Output Total 800 / 800 1000 / 1000 Balance 500 / 500 1173.33 / 1173.33 -40 / -40 Lab / Micro Data Result Diagrams: 07/24/21 06:30 07/24/21 06:30 Labs: Laboratory Results - last 24 hr 07/24/21 06:30: WBC 13.6 H, RBC 3.85 L, Hgb 11.7 L, Hct 33.5 L, MCV 87.0, MCH 30.4, MCHC 34.9, RDW Std Deviation 37.2, RDW Coeff of Saul 11.7, Plt Count 471 H, MPV 8.6 07/24/21 06:30: Sodium 126 L, Potassium 3.6, Chloride 96 L, Carbon Dioxide 21.0, Anion Gap 9, BUN 13, Creatinine 0.57, Estim Creat Clear Calc 39.50, Est GFR (MDRD) Af Amer 135, Est GFR (MDRD) Non-Af 112, BUN/Creatinine Ratio 22.8 H, Glucose 106, Calcium 8.5, Total Bilirubin 0.60, AST 87 H, ALT 171 H, Alkaline Phosphatase 18 L, Lactate Dehydrogenase 842 H, Total Protein 6.5, Albumin 2.4 L, Globulin 4.1, Albumin/Globulin Ratio 0.6 L 07/24/21 06:30: D-Dimer Quant (PE/DVT) 1.21 H* Micro: Microbiology 07/19/21 10:25 Urine, Random Legionella Antigen - Final 07/19/21 10:25 Urine, Random Streptococcus pneumoniae Antigen (M - Final 07/19/21 06:20 Nasal Secretion SARS-CoV-2 Antigen (Rapid) - Final SARS-CoV-2 (COVID 19) Physical Exam Const alert, oriented x3, no apparent distress and well nourished General Appearance: cooperative, well kempt and well developed Orientation / Consciousness: awake, oriented to person, oriented to place and oriented to time HEENT normocephalic, head/scalp atraumatic and moist oral mucous membranes Head and Scalp: normocephalic Eyes PERRL, EOMs intact bilaterally and conjunctivae normal Neck nuchal rigidity, no lymphadenopathy, supple, no JVD, thyroid normal and no carotid bruits General: trachea midline Resp normal respiratory effort, no retractions and no use of accessory muscles Resp Narrative: Decreased breath sounds bilaterally Auscultation: Negative for rales, rhonchi or wheezes Cardio regular rate, regular rhythm, S1 normal heart sound, S2 normal heart sound, no murmurs, no rub, no gallops and no clicks GI normal to inspection, nondistended, normoactive bowel sounds, soft to palpation, non-tender and non-distended Extremity normal to inspection and no clubbing, cyanosis or edema Skin no rashes or lesions noted, no wounds, skin turgor normal and no jaundice General Skin Exam: no breakdown Neuro oriented x3, CN's II-XII intact bilaterally, no focal motor deficits and no sensory deficits noted Sensorium / Orientation: awake and alert Speech: speech normal Psych thought process normal and affect normal Assessment & Plan Assessment/Plan (1) Pneumonia due to 2019-nCoV: PLAN: 1. COVID-19 pneumonia-infectious diseases is participating in her care #2 acute hypoxic respiratory failure secondary to COVID-19 pneumonia-pulse ox will be monitored #3 hyponatremia-secondary to COVID-19 pneumonia #4 elevated liver enzymes-secondary to COVID-19 infection Charges/Coding Visit Charges Inpatient E&M: 08604 Subs Hosp L2
[2021-07-24] MEDS: 0.9% Saline Lock 10 ML Syringe IV (22:06)
[2021-07-25] VITALS (7 sets, daily range): BP systolic 136–153; BP diastolic 80–95; PULSE 72–93; RESP 18; TEMP 36.9–37.2; O2SAT 91–97
[2021-07-25] MEDS: Enoxaparin 40 MG/0.4 ML Syringe SC (05:34)
[2021-07-25 08:11] LABS: Hematocrit 38.4 % (37-47); Hemoglobin 13.2 g/dL (12.0-15.0); Mean Corp Hgb Conc 34.4 g/dL (32-36); Mean Corpuscular Hgb 30.5 pg (27.0-32.0); Mean Corpuscular Volume 88.7 fL (81-99); Mean Platelet Vol. 8.7 fl (6.2-12.0); Platelet Count 481 K/mm3 (150-450); RBC Distribution Width CV 11.8 % (11.6-14.6); Red Blood Count 4.33 M/mm3 (4.2-5.4)
[2021-07-25 08:40] LABS: CPK Total, Creatine Kinase 265 U/L (26-192)
[2021-07-25 08:43] LABS: ALB/GLOB Ratio 0.6 RATIO (0.9-2.4); AST(SGOT) 62 U/L (15-37); Alanine Aminotransfer ALT/SGPT 145 U/L (13-56); Albumin, Serum 2.6 g/dL (3.2-5.0); Alkaline Phosphatase 18 U/L (45-117); Anion Gap 8 (5-15); BUN 15 mg/dL (7-18); BUN/Creat Ratio 19.7 RATIO (10-20); Calcium,Total 9.3 mg/dL (8.5-10.1); Chloride 98 mmol/L (98-107); Creatinine, Serum 0.76 mg/dL (0.55-1.02); EST Glomerular Filtration Rate 80 mL/min (>60); Est Glom Filt Rate - Afr Amer 96 mL/min (>60); Ferritin 1901 ng/mL (8-252); Globulin 4.4 g/dL (2.2-4.2); Glucose 104 mg/dL (74-106); Potassium 4.3 mmol/L (3.5-5.1); Sodium Level 130 mmol/L (136-145)
[2021-07-25] MEDS: guaiFENesin/D-Methorphan TAB.SR.12H 1 TABLET PO ×2 (11:33→22:20)
[2021-07-25] MEDS: Lisinopril 10 MG Tablet PO (11:33)
[2021-07-25] MEDS: Multivitamins,Ther W-Minerals Tablet 1 TABLET PO (11:33)
[2021-07-25] MEDS: dexAMETHasone 10 MG/ML Vial 6 MG IV (11:34)
--- NOTE | 2021-07-25 18:44 | PCM.PN.HOSP ---
Subjective Subjective Patient was seen and examined today, she is currently on 10 L via nasal cannula, at rest, the patient appears to be comfortable. She does not complain of any fevers or chills. Objective Data Objective Data Vital Signs: Vital Signs Temp Pulse Resp BP Pulse Ox 98.4 F 93 18 153/95 H 95 07/25/21 15:08 07/25/21 15:08 07/25/21 15:08 07/25/21 15:08 07/25/21 15:08 Oxygen Flow Rate (L/min) 10 Oxygen Delivery Method Nasal Cannula Weight: 72.3 kg Body Mass Index (BMI) 30.1 Intake & Output: Intake and Output for Last 24 Hours 07/23/21 07/24/21 07/25/21 23:59 23:59 23:59 Intake Total 1173.33 / 1173.33 960 / 960 750 / 750 Output Total 1000 / 1000 Balance 1173.33 / 1173.33 -40 / -40 750 / 750 Lab / Micro Data Result Diagrams: 07/25/21 07:45 07/25/21 07:45 Labs: Laboratory Results - last 24 hr 07/25/21 07:45: WBC 18.0 H, RBC 4.33, Hgb 13.2, Hct 38.4, MCV 88.7, MCH 30.5, MCHC 34.4, RDW Std Deviation 38.0, RDW Coeff of Saul 11.8, Plt Count 481 H, MPV 8.7 07/25/21 07:45: Sodium 130 L, Potassium 4.3, Chloride 98, Carbon Dioxide 24.0, Anion Gap 8, BUN 15, Creatinine 0.76, Estim Creat Clear Calc 39.50, Est GFR (MDRD) Af Amer 96, Est GFR (MDRD) Non-Af 80, BUN/Creatinine Ratio 19.7, Glucose 104, Calcium 9.3, Ferritin 1901 H, Total Bilirubin 0.70, AST 62 H, ALT 145 H, Alkaline Phosphatase 18 L, C-React Prot Ext Range 85.20 H, Total Protein 7.0, Albumin 2.6 L, Globulin 4.4 H, Albumin/Globulin Ratio 0.6 L 07/25/21 07:45: Total Creatine Kinase 265 H Micro: Microbiology 07/19/21 10:25 Urine, Random Legionella Antigen - Final 07/19/21 10:25 Urine, Random Streptococcus pneumoniae Antigen (M - Final 07/19/21 06:20 Nasal Secretion SARS-CoV-2 Antigen (Rapid) - Final SARS-CoV-2 (COVID 19) Physical Exam Narrative alert, oriented x3, no apparent distress and well nourished General Appearance: cooperative, well kempt and well developed Orientation / Consciousness: awake, oriented to person, oriented to place and oriented to time HEENT normocephalic, head/scalp atraumatic and moist oral mucous membranes Head and Scalp: normocephalic Eyes PERRL, EOMs intact bilaterally and conjunctivae normal Neck nuchal rigidity, no lymphadenopathy, supple, no JVD, thyroid normal and no carotid bruits General: trachea midline Resp normal respiratory effort, no retractions and no use of accessory muscles Resp Narrative: Decreased breath sounds bilaterally Auscultation: Negative for rales, rhonchi or wheezes Cardio regular rate, regular rhythm, S1 normal heart sound, S2 normal heart sound, no murmurs, no rub, no gallops and no clicks GI normal to inspection, nondistended, normoactive bowel sounds, soft to palpation, non-tender and non-distended Extremity normal to inspection and no clubbing, cyanosis or edema Skin no rashes or lesions noted, no wounds, skin turgor normal and no jaundice General Skin Exam: no breakdown Neuro oriented x3, CN's II-XII intact bilaterally, no focal motor deficits and no sensory deficits noted Sensorium / Orientation: awake and alert Speech: speech normal Psych thought process normal and affect normal Assessment & Plan Assessment/Plan (1) Pneumonia due to 2019-nCoV: PLAN: 1. COVID-19 pneumonia-infectious diseases is participating in her care, patient's COVID-19 symptoms started July 08, 2021, patient's positive COVID-19 test was 07/15/2021 #2 acute hypoxic respiratory failure secondary to COVID-19 pneumonia-pulse ox will be monitored #3 hyponatremia-secondary to COVID-19 pneumonia #4 elevated liver enzymes-secondary to COVID-19 infection Charges/Coding Visit Charges Inpatient E&M: 67467 Subs Hosp L2
[2021-07-26] VITALS (15 sets, daily range): BP systolic 122–155; BP diastolic 75–105; PULSE 80–124; RESP 18–28; TEMP 36.9–37.6; O2SAT 85–98
[2021-07-26] MEDS: Enoxaparin 40 MG/0.4 ML Syringe SC (06:06)
[2021-07-26 06:26] LABS: Hematocrit 36.3 % (37-47); Hemoglobin 12.5 g/dL (12.0-15.0); Mean Corp Hgb Conc 34.4 g/dL (32-36); Mean Corpuscular Hgb 30.3 pg (27.0-32.0); Mean Corpuscular Volume 87.9 fL (81-99); Mean Platelet Vol. 8.9 fl (6.2-12.0); Platelet Count 375 K/mm3 (150-450); RBC Distribution Width CV 11.8 % (11.6-14.6); RBC Distribution Width SD 37.9 fl (35.1-43.9); Red Blood Count 4.13 M/mm3 (4.2-5.4); White Blood Count 14.3 K/mm3 (4.4-11.0)
[2021-07-26 06:57] LABS: ALB/GLOB Ratio 0.5 RATIO (0.9-2.4); AST(SGOT) 39 U/L (15-37); Alanine Aminotransfer ALT/SGPT 119 U/L (13-56); Albumin, Serum 2.4 g/dL (3.2-5.0); Alkaline Phosphatase 18 U/L (45-117); Anion Gap 8 (5-15); BUN 16 mg/dL (7-18); BUN/Creat Ratio 21.7 RATIO (10-20); Calcium,Total 8.9 mg/dL (8.5-10.1); Chloride 99 mmol/L (98-107); Creatinine, Serum 0.74 mg/dL (0.55-1.02); EST Glomerular Filtration Rate 83 mL/min (>60); Est Glom Filt Rate - Afr Amer 100 mL/min (>60); Globulin 4.5 g/dL (2.2-4.2); Glucose 131 mg/dL (74-106); Potassium 4.3 mmol/L (3.5-5.1); Protein, Total 6.9 g/dL (6.4-8.2); Sodium Level 130 mmol/L (136-145)
[2021-07-26] MEDS: Multivitamins,Ther W-Minerals Tablet 1 TABLET PO (09:42)
[2021-07-26] MEDS: guaiFENesin/D-Methorphan TAB.SR.12H 1 TABLET PO ×2 (09:42→20:58)
[2021-07-26] MEDS: Lisinopril 10 MG Tablet PO (09:42)
[2021-07-26] MEDS: dexAMETHasone 10 MG/ML Vial 6 MG IV (09:47)
[2021-07-26] MEDS: 0.9% Saline Lock 10 ML Syringe IV ×2 (12:09→20:58)
[2021-07-26] MEDS: Furosemide 20 MG/2 ML VIAL IV ×2 (12:09→20:58)
--- NOTE | 2021-07-26 17:48 | PCM.PN.HOSP ---
Subjective Subjective Patient was seen and examined today, she is now on Airvo with an FiO2 of 0.8. Patient's resuscitation status is DNR Comfort Care arrest no intubation. Objective Data Objective Data Vital Signs: Vital Signs Temp Pulse Resp BP Pulse Ox 99.6 F H 110 H 24 H 122/76 H 98 07/26/21 17:33 07/26/21 17:33 07/26/21 17:33 07/26/21 17:33 07/26/21 17:33 Oxygen Flow Rate (L/min) 40 Oxygen Delivery Method Airvo Weight: 72.3 kg Body Mass Index (BMI) 30.1 Intake & Output: Intake and Output for Last 24 Hours 07/24/21 07/25/21 07/26/21 23:59 23:59 23:59 Intake Total 960 / 960 1100 / 1100 775 / 775 Output Total 1000 / 1000 850 / 850 Balance -40 / -40 1100 / 1100 -75 / -75 Lab / Micro Data Result Diagrams: 07/26/21 06:04 07/26/21 06:04 Labs: Laboratory Results - last 24 hr 07/26/21 06:04: WBC 14.3 H, RBC 4.13 L, Hgb 12.5, Hct 36.3 L, MCV 87.9, MCH 30.3, MCHC 34.4, RDW Std Deviation 37.9, RDW Coeff of Saul 11.8, Plt Count 375, MPV 8.9 07/26/21 06:04: Sodium 130 L, Potassium 4.3, Chloride 99, Carbon Dioxide 23.0, Anion Gap 8, BUN 16, Creatinine 0.74, Estim Creat Clear Calc 39.50, Est GFR (MDRD) Af Amer 100, Est GFR (MDRD) Non-Af 83, BUN/Creatinine Ratio 21.7 H, Glucose 131 H, Calcium 8.9, Total Bilirubin 0.60, AST 39 H, ALT 119 H, Alkaline Phosphatase 18 L, Total Protein 6.9, Albumin 2.4 L, Globulin 4.5 H, Albumin/Globulin Ratio 0.5 L Micro: Microbiology 07/19/21 10:25 Urine, Random Legionella Antigen - Final 07/19/21 10:25 Urine, Random Streptococcus pneumoniae Antigen (M - Final 07/19/21 06:20 Nasal Secretion SARS-CoV-2 Antigen (Rapid) - Final SARS-CoV-2 (COVID 19) Physical Exam Const alert, oriented x3 and no apparent distress General Appearance: cooperative, well kempt and well developed Orientation / Consciousness: awake, oriented to person, oriented to place and oriented to time HEENT normocephalic, head/scalp atraumatic and moist oral mucous membranes Head and Scalp: normocephalic Eyes PERRL, EOMs intact bilaterally and conjunctivae normal Neck nuchal rigidity, supple, no JVD, thyroid normal and no carotid bruits General: trachea midline Resp no retractions, no use of accessory muscles and clear to auscultation bilaterally Auscultation: Negative for rales, rhonchi or wheezes Cardio regular rate, regular rhythm, S1 normal heart sound, S2 normal heart sound, no murmurs, no rub and no gallops GI normal to inspection, nondistended, normoactive bowel sounds, soft to palpation, non-tender and non-distended Extremity no clubbing, cyanosis or edema Skin no rashes or lesions noted General Skin Exam: no breakdown Neuro oriented x3, CN's II-XII intact bilaterally, no focal motor deficits and no sensory deficits noted Sensorium / Orientation: awake and alert Speech: speech normal Psych thought process normal and affect normal Assessment & Plan Assessment/Plan (1) Pneumonia due to 2019-nCoV: PLAN: 1. COVID-19 pneumonia-infectious diseases is participating in her care, patient's COVID-19 symptoms started July 08, 2021, patient's positive COVID-19 test was 07/15/2021, I have decided to place the patient on full anticoagulation due to increasing supplemental oxygen requirements. Patient is currently receiving baricitinib and dexamethasone- she was not a candidate for remdesivir. #2 acute hypoxic respiratory failure secondary to COVID-19 pneumonia-pulse ox will be monitored #3 hyponatremia-secondary to COVID-19 pneumonia #4 elevated liver enzymes-secondary to COVID-19 infection Charges/Coding Visit Charges Inpatient E&M: 02458 Subs Hosp L2
[2021-07-26] MEDS: Potassium Chloride Oral Tablet 20 MEQ PO (20:57)
[2021-07-26] MEDS: Enoxaparin 80 MG/0.8 ML Syringe 70 MG SC (21:10)
[2021-07-27] VITALS (12 sets, daily range): BP systolic 124–136; BP diastolic 70–90; PULSE 90–123; RESP 18–26; TEMP 36.9–37.6; O2SAT 92–98
[2021-07-27 07:30] LABS: CPK Total, Creatine Kinase 224 U/L (26-192)
[2021-07-27] MEDS: Enoxaparin 80 MG/0.8 ML Syringe 70 MG SC ×2 (09:10→21:22)
[2021-07-27] MEDS: dexAMETHasone 10 MG/ML Vial 6 MG IV (09:11)
[2021-07-27] MEDS: Lisinopril 10 MG Tablet PO (09:12)
[2021-07-27] MEDS: Multivitamins,Ther W-Minerals Tablet 1 TABLET PO (09:12)
[2021-07-27] MEDS: guaiFENesin/D-Methorphan TAB.SR.12H 1 TABLET PO ×2 (09:12→21:23)
--- NOTE | 2021-07-27 15:49 | PCM.PN.ID ---
Physical Exam Narrative Feeling better, breathing improved, no fever Const alert and no apparent distress General Appearance: cooperative Resp clear to auscultation bilaterally Auscultation: diminished lung sounds Cardio regular rate and regular rhythm GI normal to inspection, nondistended, normoactive bowel sounds Skin no rashes or lesions noted ID ID: Route of nutrition/ use of supplements: [] Nutritional Intake: [] IV Site: [] Dasilva Catheter: [] Assessment & Plan Assessment/Plan (1) Acute respiratory failure with hypoxia: (2) Pneumonia due to 2019-nCoV: PLAN: Sx started around 07/08/21. 20 days of isolation, will stop today. Unvaccinated. Not remdesivir candidate due to timing of symptoms. On dex. Had worsened O2, started baricitinib 07/23. CT showed no PE. Recommended vaccine after infection resolves. Will follow
--- NOTE | 2021-07-27 19:00 | PN.HOSP_ITS ---
Subjective Subjective Patient was seen and examined today, she is currently on Airvo, she was removed from isolation today, I talked at length with her daughter who requested the patient be placed on vitamin C, vitamin D, and zinc-I told her I do not have a problem writing for these supplements. I answered additional questions that her daughter had. Objective Data Objective Data Vital Signs: Vital Signs Temp Pulse Resp BP Pulse Ox 99.7 F H 123 H 24 H 124/90 H 93 07/27/21 15:00 07/27/21 17:20 07/27/21 15:10 07/27/21 15:00 07/27/21 17:20 Oxygen Flow Rate (L/min) 40 Oxygen Delivery Method Airvo Weight: 72.3 kg Body Mass Index (BMI) 30.1 Intake & Output: Intake and Output for Last 24 Hours 07/25/21 07/26/21 07/27/21 23:59 23:59 23:59 Intake Total 1100 / 1100 775 / 775 700 / 700 Output Total 850 / 850 Balance 1100 / 1100 -75 / -75 700 / 700 Lab / Micro Data Result Diagrams: 07/26/21 06:04 07/26/21 06:04 Labs: Laboratory Results - last 24 hr 07/27/21 06:40: Total Creatine Kinase 224 H, C-React Prot Ext Range 90.40 H Micro: Microbiology 07/19/21 10:25 Urine, Random Legionella Antigen - Final 07/19/21 10:25 Urine, Random Streptococcus pneumoniae Antigen (M - Final 07/19/21 06:20 Nasal Secretion SARS-CoV-2 Antigen (Rapid) - Final SARS-CoV-2 (COVID 19) Physical Exam Const alert, oriented x3 and no apparent distress General Appearance: cooperative, well kempt and well developed Orientation / Consciousness: awake, oriented to person, oriented to place and oriented to time HEENT normocephalic, head/scalp atraumatic and moist oral mucous membranes Head and Scalp: normocephalic Eyes PERRL, EOMs intact bilaterally and conjunctivae normal Neck nuchal rigidity, supple, no JVD, thyroid normal and no carotid bruits General: trachea midline Resp normal respiratory effort, no retractions, no use of accessory muscles and clear to auscultation bilaterally Auscultation: Negative for rales, rhonchi or wheezes Cardio regular rate, regular rhythm, S1 normal heart sound, S2 normal heart sound, no murmurs, no rub and no gallops GI normal to inspection, nondistended, normoactive bowel sounds, soft to palpation, non-tender and non-distended Extremity normal to inspection and no clubbing, cyanosis or edema Skin no rashes or lesions noted, no wounds and skin turgor normal General Skin Exam: no breakdown Neuro oriented x3, CN's II-XII intact bilaterally, no focal motor deficits and no sens ory deficits noted Sensorium / Orientation: awake and alert Speech: speech normal Psych thought process normal and affect normal Assessment & Plan Assessment/Plan (1) Pneumonia due to 2019-nCoV: PLAN: 1. COVID-19 pneumonia-infectious diseases is participating in her care, patient's COVID-19 symptoms started July 08, 2021, patient's positive COVID-19 test was 07/15/2021. Patient is currently receiving baricitinib and dexamethasone- she was not a candidate for remdesivir. #2 acute hypoxic respiratory failure secondary to COVID-19 pneumonia-pulse ox will be monitored #3 hyponatremia-secondary to COVID-19 pneumonia #4 elevated liver enzymes-secondary to COVID-19 infection Charges/Coding Visit Charges Inpatient E&M: 24253 Subs Hosp L2
[2021-07-27] MEDS: 0.9% Saline Lock 10 ML Syringe IV (21:23)
[2021-07-28] VITALS (11 sets, daily range): BP systolic 113–129; BP diastolic 60–94; PULSE 81–120; RESP 16–20; TEMP 36.4–37; O2SAT 92–98
--- NOTE | 2021-07-28 00:18 | CPS ---
decreased O2 to 11 lpm
[2021-07-28] MEDS: Ascorbic Acid 500 MG Tablet PO (07:38)
[2021-07-28] MEDS: Enoxaparin 80 MG/0.8 ML Syringe 70 MG SC ×2 (09:15→21:08)
[2021-07-28] MEDS: guaiFENesin/D-Methorphan TAB.SR.12H 1 TABLET PO ×2 (09:16→21:08)
[2021-07-28] MEDS: Multivitamins,Ther W-Minerals Tablet 1 TABLET PO (09:16)
[2021-07-28] MEDS: 0.9% Saline Lock 10 ML Syringe IV ×2 (09:16→21:09)
[2021-07-28] MEDS: Lisinopril 10 MG Tablet PO (09:17)
[2021-07-28] MEDS: Cholecalciferol (VIT D3) 25 MCG TABLET (1,000 UNITS) 50 MCG PO (09:17)
[2021-07-28] MEDS: dexAMETHasone 10 MG/ML Vial 6 MG IV (09:17)
--- NOTE | 2021-07-28 18:15 | PN.HOSP_ITS ---
Subjective Subjective Patient was seen and examined today, she talked with me at length about discharging her home, I explained to her that her oxygen setting is still too high to be discharged home. Patient is currently on 8 L via nasal cannula at rest. Objective Data Objective Data Vital Signs: Vital Signs Temp Pulse Resp BP Pulse Ox 97.7 F L 100 16 115/75 95 07/28/21 14:13 07/28/21 14:16 07/28/21 14:13 07/28/21 14:13 07/28/21 14:13 Oxygen Flow Rate (L/min) 8 Oxygen Delivery Method Nasal Cannula Weight: 72.3 kg Body Mass Index (BMI) 30.1 Intake & Output: Intake and Output for Last 24 Hours 07/26/21 07/27/21 07/28/21 23:59 23:59 23:59 Intake Total 775 / 775 700 / 700 Output Total 850 / 850 500 / 500 Balance -75 / -75 700 / 700 -500 / -500 Lab / Micro Data Result Diagrams: 07/26/21 06:04 07/26/21 06:04 Micro: Microbiology 07/19/21 10:25 Urine, Random Legionella Antigen - Final 07/19/21 10:25 Urine, Random Streptococcus pneumoniae Antigen (M - Final 07/19/21 06:20 Nasal Secretion SARS-CoV-2 Antigen (Rapid) - Final SARS-CoV-2 (COVID 19) Physical Exam Const alert, oriented x3, no apparent distress and average body habitus General Appearance: cooperative, well kempt and well developed Orientation / Consciousness: awake, oriented to person, oriented to place and oriented to time HEENT normocephalic and moist oral mucous membranes Eyes PERRL, EOMs intact bilaterally and conjunctivae normal Neck nuchal rigidity, supple, no JVD, thyroid normal and no carotid bruits General: trachea midline Resp normal respiratory effort, no retractions, no use of accessory muscles and clear to auscultation bilaterally Auscultation: Negative for rales, rhonchi or wheezes Cardio regular rate, regular rhythm, no murmurs, no rub and no gallops GI normal to inspection, nondistended, normoactive bowel sounds, soft to palpation, non-tender and non-distended Extremity no clubbing, cyanosis or edema Skin no rashes or lesions noted General Skin Exam: no breakdown Neuro oriented x3, CN's II-XII intact bilaterally, no focal motor deficits and no se nsory deficits noted Sensorium / Orientation: awake and alert Speech: speech normal Psych thought process normal and affect normal Assessment & Plan Assessment/Plan (1) Pneumonia due to 2019-nCoV: PLAN: 1. COVID-19 pneumonia-infectious diseases is participating in her care, patient's COVID-19 symptoms started July 08, 2021, patient's positive COVID-19 test was 07/15/2021. Patient is currently receiving baricitinib and dexamethasone (07/29/2021 will be the 10th day of dexamethasone treatment)- she was not a candidate for remdesivir. #2 acute hypoxic respiratory failure secondary to COVID-19 pneumonia-pulse ox will be monitored #3 hyponatremia-secondary to COVID-19 pneumonia #4 elevated liver enzymes-secondary to COVID-19 infection Charges/Coding Visit Charges Inpatient E&M: 30955 Subs Hosp L2
[2021-07-28] MEDS: MELATONIN 3 MG TABLET PO (22:33)
[2021-07-29 02:10] VITALS: BP 129/97; PULSE 81; RESP 18; TEMP 36.9; O2SAT 96
--- NOTE | 2021-07-29 08:39 | NURSING ---
pt called out and this nurse went into pt room. pt states that she is leaving today no matter what that she has medical rights and she does not need to be in the hospital. this RN informed the pt that I understand she has medical rights but if she is not safe to go home yet that she will have to sign out AMA.. I explained the AMA process and what it entails. pt states i dont care i have medical rights i have people at home who can help me i am leaving today informed pt that she will most likely have to go home on oxygen and that can take a while. pt states i dont care im leaving informed her that i will let the doctor know.. Dr. Abbott was texted
[2021-07-29 09:41] VITALS: O2SAT 84; O2SAT 91; O2SAT 95
[2021-07-29 09:43] VITALS: BP 113/77; PULSE 120; RESP 18; TEMP 36.6; O2SAT 97
[2021-07-29] MEDS: Cholecalciferol (VIT D3) 25 MCG TABLET (1,000 UNITS) 50 MCG PO (09:45)
[2021-07-29] MEDS: guaiFENesin/D-Methorphan TAB.SR.12H 1 TABLET PO (09:45)
[2021-07-29] MEDS: dexAMETHasone 10 MG/ML Vial 6 MG IV (09:46)
[2021-07-29] MEDS: Ascorbic Acid 500 MG Tablet PO (09:46)
[2021-07-29] MEDS: Enoxaparin 80 MG/0.8 ML Syringe 70 MG SC (09:46)
[2021-07-29] MEDS: Lisinopril 10 MG Tablet PO (09:47)
[2021-07-29] MEDS: Multivitamins,Ther W-Minerals Tablet 1 TABLET PO (09:47)
[2021-07-29] MEDS: 0.9% Saline Lock 10 ML Syringe IV (09:50)
[2021-07-29 10:15] VITALS: O2SAT 94
--- NOTE | 2021-07-29 13:17 | PCM.DC ---
Discharge Instructions Diet Discharge Diet: No restrictions Activity Discharge Activity: Return to Normal Activity Weight Bearing Status: Full weight bearing Follow Up Care Test Results: Test results from this visit will be discussed in further detail at your follow-up appointment, if applicable. Discharge Plan Admission Admit Date/Time: 07/19/21 08:26 Primary Reason for Your Visit: Acute hypoxic respiratory failure secondary to COVID-19 pneumonia Attending Provider: John Abbott Primary Care Provider: Mona Diaz Consulting Providers: Estrada Mena Instructions Patient Instructions: COVID-19: Lying in a Prone Position (Proning) Additional Instructions / Restrictions: Incentive spirometry, 10 reps 4 times daily and Pep to continue for 2 weeks. Nursing staff to educate about incentive spirometry and Pep Use oxygen as directed-3 liters at rest and when ambulating Discharge Orders/Prescriptions Prescriptions: New zinc sulfate 50 mg zinc (220 mg) Capsule 220 mg PO DAILY Qty: 0 RF: 0 cholecalciferol (vitamin D3) 25 mcg (1,000 unit) Tablet 50 mcg PO DAILY Qty: 0 RF: 0 ascorbic acid (vitamin C) 500 mg Tablet 500 mg PO BREAKFAST Qty: 0 RF: 0 aspirin [Adult Low Dose Aspirin] 81 mg tablet,delayed release (DR/EC) 162 mg PO DAILY Qty: 14 RF: 0 Continued multivitamin with minerals Tablet 1 tab PO DAILY RF: 0 lisinopril 10 mg tablet 10 mg DAILY RF: 0 Referrals / Follow Up: Mona Diaz MD [Primary Care Provider] - In 1 Week (Follow-up for COVID-19 pneumonia.) Disposition Disposition (needs filled in before D/C Order can be placed): Home, Self Care
--- NOTE | 2021-07-29 13:45 | CASEMGMT ---
Pt qualifies for home O2, faxed referral to [facility] [place]. TC to [place] she is aware of referral and O2 used from stock.
[2021-07-29 13:59] VITALS: BP 115/62; PULSE 110; RESP 20; TEMP 36.8; O2SAT 95
--- NOTE | 2021-07-30 14:57 | CASEMGMT ---
RN CM Discharge Follow Up COVID Phone Call: LACE: 8 Strata: 2 Call Date: 07/30/21 Discharge Date: 07/29/21 Time of Call: 1445 Duration:<1 min Admitting Dx:COVID 19 RN CM attempted to complete follow up phone call after recent hospitalization. No answer and unidentified voicemail, no message left.
--- NOTE | 2021-07-30 19:49 | PCM.DC.SUM ---
Providers Date of Admission: 07/19/21 Date of Discharge: 07/29/21 Primary Care Physician: Dr. Mona Diaz MD Consultations 07/22/21 14:00 Consult: Infectious Disease Routine Consulting Provider: Estrada Mena Reason for Consult: severe covid pneumonia, approval for Baritinib EMERGENT Consult: No MD Notified: Yes Date Notified: 07/22/21 Time Notified: 14:00 Method of Notification: Verbal Reason For Visit: COVID 19 Diagnosis Discharge Diagnosis (1) Pneumonia due to 2019-nCoV: Status: Acute Code(s): U07.1 - COVID-19; J12.82 - Pneumonia due to coronavirus disease 2019 Plan: 1. COVID-19 pneumonia #2 acute hypoxic respiratory failure secondary to COVID-19 pneumonia #3 hyponatremia secondary to COVID-19 pneumonia #4 elevated liver enzymes secondary to COVID-19 pneumonia Medications at Discharge Home Medications multivitamin with minerals 1 tab PO DAILY 07/19/21 lisinopril 10 mg DAILY 07/21/21 ascorbic acid (vitamin C) 500 mg PO BREAKFAST #0 tab 07/29/21 aspirin [Adult Low Dose Aspirin] 162 mg PO DAILY #14 tab 07/29/21 cholecalciferol (vitamin D3) 50 mcg PO DAILY #0 tab 07/29/21 zinc sulfate 220 mg PO DAILY #0 cap 07/29/21 Hospital Course Operations None Procedures None Summary of Care Provided Minutes Spent on Discharge: 32 Hospital Course: 70-year-old white female was seen in the emergency room at [facility] with a chief complaint of generalized weakness along with what she described as chest congestion and cough-the symptoms started approximately 10 to 12 days prior to being seen in the emergency room. Patient's family doctor obtain a Covid swab on the patient which was positive, this result took approximately 5 days to return and the patient's family doctor tried to contact the patient by telephone and was unable to and sent a nurse to the patient's house to check on her. The nurse reported upon arrival that the patient's pulse ox on room air was 80% and had increased work of breathing, she was sent to the emergency room for evaluation. Evaluation in the emergency room included a chest x-ray which showed changes compatible with bilateral pneumonia indicative of COVID-19 infection, patient required 3 to 4 L via nasal cannula to maintain her pulse ox. CTA of the chest was performed due to an elevated D-dimer, it showed no evidence of PE and it showed diffuse groundglass opacities consistent with COVID-19 pneumonia. Patient was admitted to [place] [address], she was not a remdesivir candidate due to the timing of her symptoms, she was placed on dexamethasone, over the course of the next several days her oxygen requirement increased and she was started on baricitinib, she was slowly weaned down on her oxygen. Her dexamethasone was eventually stopped as she completed a 10-day course. At the time of discharge on 07/29/21, patient required 3 L of oxygen via nasal cannula at rest and when ambulating. Patient was seen and examined on 07/29/2021: On examination she appeared in good health and spirits, she does not appear to be in any distress. Vital signs as documented. Skin warm and dry and without overt rashes. Neck without JVD, thyroid appears normal, trachea is midline, neck is supple. Lungs clear, normal air movement was noted. Heart exam notable for regular rhythm, normal sounds and absence of murmurs, rubs or gallops. Abdomen unremarkable and without evidence of organomegaly, masses, or abdominal aortic enlargement, bowel sounds are present in all 4 quadrants, no abdominal tenderness was noted. Extremities nonedematous, no cyanosis was noted, no clubbing was noted. Neuro: Cranial nerves II through XII are grossly intact, no focal motor deficits were noted, sensation to light touch and pinprick is intact, motor exam 5/5 throughout. Psych: Patient is alert and oriented x3, she does not appear anxious or depressed, she does not appear agitated. Patient appears stable for discharge to home on 07/29/2021. Weight / BMI Weight Weight: 72.3 kg Body Mass Index (BMI) 30.1 ABG / Lab / Microbiology Data Result Diagrams: 07/26/21 06:04 07/26/21 06:04 Microbiology: Microbiology 07/19/21 10:25 Urine, Random Legionella Antigen - Final 07/19/21 10:25 Urine, Random Streptococcus pneumoniae Antigen (M - Final 07/19/21 06:20 Nasal Secretion SARS-CoV-2 Antigen (Rapid) - Final SARS-CoV-2 (COVID 19) D/C Instructions Discharge Diet: No restrictions Weight Bearing Status: Full weight bearing Call your doctor if you observe: Fever of 101 or Higher, Coldness, Increased Pain, Numbness or Tingling, Change in Color, Inability to urinate, Inability to have a bowel movement, Using more than 1 pad per hour, Shortness of breath, Dizziness, Fainting spells, Swelling in the ankles, Chest pain, Prolonged hiccupping, Increased palpitations (irregular heartbeat), Calf discomfort and Uncontrolled pain Meaningful Use Info Meaningful Use Diagnoses (Choose all that apply): None applicable Discharge Plan Admission Admit Date/Time: 07/19/21 08:26 Primary Reason for Your Visit: Acute hypoxic respiratory failure secondary to COVID-19 pneumonia Attending Provider: John Abbott Primary Care Provider: Mona Diaz Consulting Providers: Estrada Mena Instructions Patient Instructions: COVID-19: Lying in a Prone Position (Proning) Additional Instructions / Restrictions: Incentive spirometry, 10 reps 4 times daily and Pep to continue for 2 weeks. Nursing staff to educate about incentive spirometry and Pep Use oxygen as directed-3 liters at rest and when ambulating Discharge Orders/Prescriptions Prescriptions: New zinc sulfate 50 mg zinc (220 mg) Capsule 220 mg PO DAILY Qty: 0 RF: 0 cholecalciferol (vitamin D3) 25 mcg (1,000 unit) Tablet 50 mcg PO DAILY Qty: 0 RF: 0 ascorbic acid (vitamin C) 500 mg Tablet 500 mg PO BREAKFAST Qty: 0 RF: 0 aspirin [Adult Low Dose Aspirin] 81 mg tablet,delayed release (DR/EC) 162 mg PO DAILY Qty: 14 RF: 0 Continued multivitamin with minerals Tablet 1 tab PO DAILY RF: 0 lisinopril 10 mg tablet 10 mg DAILY RF: 0 Referrals / Follow Up: Mona Diaz MD [Primary Care Provider] - In 1 Week (Follow-up for COVID-19 pneumonia.) Disposition Disposition (needs filled in before D/C Order can be placed): Home, Self Care Charges/Coding Visit Charges Inpatient E&M: 46770 Disch Hosp
== END 2021-07-29 14:12 | disposition home or self-care (01) | DRG 177 ==
LOC: ED 07:56 → MS3 08:34
PROVIDERS: Internal Medicine Infectious Disease; Admitting Provider Internal Medicine; Emergency Provider Emergency Medicine; PCP Internal Medicine; Visit Provider Internal Medicine
DX: U07.1 COVID-19 (principal); J12.82 Pneumonia due to coronavirus disease 2019; J96.01 Acute respiratory failure with hypoxia; E87.1 Hypo-osmolality and hyponatremia; R74.8 Abnormal levels of other serum enzymes; E87.8 Other disorders of electrolyte and fluid balance, not elsewhere classified; Z79.899 Other long term (current) drug therapy; Z28.3 Underimmunization status; Z66 Do not resuscitate
CPT/HCPCS: 36415; 71045; 71275; 80048; 80053; 82550; 82728; 83605; 83615; 83735; 83880; 84145; 84484; 85025; 85027; 85379; 85384; 85610; 86140; 87426; 87449; 93005; 94640; 94660; 94667; 94668; 94762; 99251; 99285; J7030; J7040; Q9967; A4216; G0463; J1940

== ENCOUNTER → 2021-08-06 15:24 | Outpatient (CLI) | payer MEDICARE, SELFPAY ==
[2021-08-06 16:39] LABS: Absolute Lymphocyte Count 2.03 X10^3/uL (0.83-4.51); Absolute Neutrophil Count 7.8 X10^3/uL (2.0-7.7); Basophil# 0.04 X10^3/uL; Basophil% 0.4 % (0-1); Eosinophil# 0.06 X10^3/uL; Eosinophils% 0.5 % (0-5); Hemoglobin 10.7 g/dL (12.0-15.0); Lymphocyte # 2.03 X10^3/ul (0.83-4.51); Mean Corp Hgb Conc 32.4 g/dL (32-36); Mean Corpuscular Hgb 30.3 pg (27.0-32.0); Mean Corpuscular Volume 93.5 fL (81-99); Mean Platelet Vol. 8.6 fl (6.2-12.0); Monocyte# 1.24 X10^3/uL; NRBC Flagged by Analyzer 0 % (0-5); Neutrophil # 7.76 X10^3/uL (2.7-7.7); Neutrophil % 68.8 % (47-70); POSITIVE MORPHOLOGY YES; Platelet Count 482 K/mm3 (150-450); RBC Distribution Width CV 12.8 % (11.6-14.6); RBC Distribution Width SD 43.4 fl (35.1-43.9); Red Blood Count 3.53 M/mm3 (4.2-5.4); White Blood Count 11.3 K/mm3 (4.4-11.0)
[2021-08-06 16:46] LABS: ALB/GLOB Ratio 0.6 RATIO (0.9-2.4); AST(SGOT) 20 U/L (15-37); Alanine Aminotransfer ALT/SGPT 49 U/L (13-56); Albumin, Serum 2.8 g/dL (3.2-5.0); Alkaline Phosphatase 17 U/L (45-117); Anion Gap 9 (5-15); BUN 18 mg/dL (7-18); BUN/Creat Ratio 23.9 RATIO (10-20); Calcium,Total 9.4 mg/dL (8.5-10.1); Chloride 100 mmol/L (98-107); Creatinine, Serum 0.75 mg/dL (0.55-1.02); EST Glomerular Filtration Rate 81 mL/min (>60); Est Glom Filt Rate - Afr Amer 98 mL/min (>60); Globulin 4.7 g/dL (2.2-4.2); Glucose 112 mg/dL (74-106); Potassium 4.6 mmol/L (3.5-5.1); Protein, Total 7.5 g/dL (6.4-8.2); Sodium Level 134 mmol/L (136-145)
[2021-08-06 16:59] LABS: Differential Indicated SCAN CRITERIA MET
[2021-08-06 17:00] LABS: Differential Comment SCANNED
== END ==
PROVIDERS: PCP Nurse Practitioner Family; Referring Provider Nurse Practitioner Family; Visit Provider Nurse Practitioner Family
DX: U07.1 COVID-19 (principal); R53.83 Other fatigue
CPT/HCPCS: 36415; 80053; 85025

== ENCOUNTER → 2021-08-08 13:35 | Outpatient (CLI) | payer MEDICARE, SELFPAY ==
[2021-08-08 14:22] LABS: Ferritin 646 ng/mL (8-252); Iron 62 ug/dL (50-170); Magnesium 2.5 mg/dL (1.6-2.6); Phosphorus 4.5 mg/dL (2.5-4.9); T4 Free Direct 1.15 ng/dL (0.76-1.46); T4 Total, Thyroxin 10.4 ug/dL (4.8-13.9); Thyroid Stim Hormone (TSH) 0.94 uIU/mL (0.358-3.74)
[2021-08-10 08:28] LABS: T3 Total - Triiodothyronine 1.17 ng/mL (0.6-1.81); Vitamin B12 501 pg/mL (211-911); Vitamin D,25 Hydroxy 44.4 ng/mL
[2021-08-11 09:09] LABS: PROEL- A/G Ratio 0.9 (0.7-1.7); PROEL- Albumin 3.1 g/dL (2.9-4.4); PROEL- Alpha-1 Globulin 0.4 g/dL (0.0-0.4); PROEL- Alpha-2 Globulin 1.1 g/dL (0.4-1.0); PROEL- Beta Globulin 1.1 g/dL (0.7-1.3); PROEL- Gamma Globulin 0.9 g/dL (0.4-1.8); PROEL- Globulin, Total 3.6 g/dL (2.2-3.9); PROEL- TOTAL PROTEIN 6.7 g/dL (6.0-8.5)
[2021-08-11 16:26] LABS: Anti-Thyroglobulin AB < 1.0 IU/mL (0.0-0.9); Thyroglobulin, Serum Qt. 9.2 ng/mL (1.5-38.5); Thyroid Peroxidase AB < 8 IU/mL (0-34)
== END ==
PROVIDERS: PCP Nurse Practitioner Family; Referring Provider Nurse Practitioner Family; Visit Provider Nurse Practitioner Family
DX: D72.89 Other specified disorders of white blood cells (principal); D64.9 Anemia, unspecified; R53.83 Other fatigue; E88.89 Other specified metabolic disorders; E88.09 Other disorders of plasma-protein metabolism, not elsewhere classified
CPT/HCPCS: 82306; 82607; 82728; 82746; 83540; 83735; 84100; 84165; 84432; 84436; 84439; 84443; 84480; 86376; 86800

== ENCOUNTER → 2021-09-02 11:00 | Outpatient (CLI) | payer MEDICARE, SELFPAY ==
[2021-09-02 12:46] LABS: Absolute Lymphocyte Count 2.11 X10^3/uL (0.83-4.51); Absolute Neutrophil Count 4.2 X10^3/uL (2.0-7.7); Basophil# 0.03 X10^3/uL; Basophil% 0.4 % (0-1); Eosinophil# 0.07 X10^3/uL; Hematocrit 37.2 % (37-47); Hemoglobin 12.4 g/dL (12.0-15.0); Lymphocyte # 2.11 X10^3/ul (0.83-4.51); Lymphocyte % 30.7 % (19-41); Mean Corp Hgb Conc 33.3 g/dL (32-36); Mean Corpuscular Hgb 30.9 pg (27.0-32.0); Mean Corpuscular Volume 92.8 fL (81-99); Mean Platelet Vol. 9.5 fl (6.2-12.0); Monocyte# 0.47 X10^3/uL; Monocyte% 6.8 % (0-10); NRBC Flagged by Analyzer 0 % (0-5); Neutrophil # 4.17 X10^3/uL (2.7-7.7); Neutrophil % 60.8 % (47-70); Platelet Count 341 K/mm3 (150-450); RBC Distribution Width CV 13.5 % (11.6-14.6); RBC Distribution Width SD 46.1 fl (35.1-43.9); Red Blood Count 4.01 M/mm3 (4.2-5.4); White Blood Count 6.9 K/mm3 (4.4-11.0)
[2021-09-02 13:31] LABS: ALB/GLOB Ratio 0.8 RATIO (0.9-2.4); AST(SGOT) 29 U/L (15-37); Alanine Aminotransfer ALT/SGPT 25 U/L (13-56); Albumin, Serum 3.4 g/dL (3.2-5.0); Alkaline Phosphatase 19 U/L (45-117); Anion Gap 9 (5-15); BUN 20 mg/dL (7-18); CRP 5.94 mg/L (0.0-3.0); Calcium,Total 9.7 mg/dL (8.5-10.1); Chloride 102 mmol/L (98-107); Creatinine, Serum 0.83 mg/dL (0.55-1.02); EST Glomerular Filtration Rate 72 mL/min (>60); Est Glom Filt Rate - Afr Amer 87 mL/min (>60); Ferritin 210 ng/mL (8-252); Globulin 4.5 g/dL (2.2-4.2); Glucose 112 mg/dL (74-106); Potassium 3.9 mmol/L (3.5-5.1); Protein, Total 7.9 g/dL (6.4-8.2); Sodium Level 136 mmol/L (136-145)
== END ==
PROVIDERS: PCP Nurse Practitioner Family; Visit Provider Nurse Practitioner Family
DX: U07.1 COVID-19 (principal); J12.82 Pneumonia due to coronavirus disease 2019; R30.0 Dysuria
CPT/HCPCS: 80053; 82728; 85025; 86140; 87077; 87086; 87088; 87186

== ENCOUNTER → 2021-09-16 08:35 | Outpatient (CLI) | payer MEDICARE, SELFPAY | PROVIDERS: PCP Nurse Practitioner Family; Visit Provider Nurse Practitioner Family | DX: N39.0 Urinary tract infection, site not specified (principal) | CPT/HCPCS: 87086; 87088 ==

== ENCOUNTER → 2021-09-22 14:19 | Outpatient (CLI) | payer MEDICARE, SELFPAY | PROVIDERS: PCP Nurse Practitioner Family; Visit Provider Nurse Practitioner Family | DX: N39.0 Urinary tract infection, site not specified (principal) | CPT/HCPCS: 87077; 87086; 87088; 87186 ==

== ENCOUNTER → 2021-10-07 16:05 | Outpatient (CLI) | payer MEDICARE, SELFPAY ==
[2021-10-07 17:03] LABS: Bacteria 0 SEEN /hpf (None Seen); Mucous, Urine 0 SEEN /hpf (<or=2+); Red Blood Cells-Urine 0 SEEN /hpf (0-5)
[2021-10-07 17:23] LABS: Color, Urine Yellow (Yellow); Glucose, Dipstick Normal (Normal); Ketone-Dipstick Negative (Negative); Leukocyte Esterase-Dipstick 100 /ul (Negative); Nitrite-Dipstick Negative (Negative); Occult Blood-Urine Negative /ul (Negative); Protein-Dipstick Negative (Negative); Specific Gravity, Urine 1.015 (1.002-1.030); Urine Bilirubin Dipstick Negative (Negative); Urine Clarity Clear (Clear); Urine Urobilinogen Normal (Normal)
[2021-10-07 17:40] LABS: Squamous Epithelial Cells - UA 0-5 SEEN /hpf (5-10); White Blood Cells 0-5 SEEN /hpf (0-5)
== END ==
PROVIDERS: PCP Nurse Practitioner Family; Visit Provider Nurse Practitioner Family
DX: N39.0 Urinary tract infection, site not specified (principal)
CPT/HCPCS: 81001; 87086; 87088

== ENCOUNTER → 2021-10-29 16:34 | Outpatient (CLI) | payer MEDICARE, SELFPAY ==
[2021-10-29 16:50] LABS: Bacteria 0 SEEN /hpf (None Seen); Mucous, Urine 0 SEEN /hpf (<or=2+); Red Blood Cells-Urine 0 SEEN /hpf (0-5)
[2021-10-29 16:57] LABS: Color, Urine Yellow (Yellow); Glucose, Dipstick Normal (Normal); Ketone-Dipstick 5 mg/dl (Negative); Leukocyte Esterase-Dipstick 100 /ul (Negative); Nitrite-Dipstick Negative (Negative); Occult Blood-Urine Negative /ul (Negative); Protein-Dipstick Negative (Negative); Specific Gravity, Urine 1.015 (1.002-1.030); Urine Bilirubin Dipstick Negative (Negative); Urine Clarity Sl. Cloudy (Clear); Urine Urobilinogen Normal (Normal)
[2021-10-29 17:35] LABS: Squamous Epithelial Cells - UA 0-5 SEEN /hpf (5-10); White Blood Cells 0-5 SEEN /hpf (0-5)
== END ==
PROVIDERS: PCP Nurse Practitioner Family; Visit Provider Nurse Practitioner Family
DX: N39.0 Urinary tract infection, site not specified (principal)
CPT/HCPCS: 81001; 87086; 87088

== ENCOUNTER → 2021-11-05 13:51 | Outpatient (CLI) | payer MEDICARE, SELFPAY ==
[2021-11-05 13:58] LABS: Bacteria 0 SEEN /hpf (None Seen); Mucous, Urine 0 SEEN /hpf (<or=2+); Red Blood Cells-Urine 0 SEEN /hpf (0-5); White Blood Cells 0 SEEN /hpf (0-5)
[2021-11-05 14:03] LABS: Color, Urine Straw (Yellow); Glucose, Dipstick Normal (Normal); Ketone-Dipstick Negative (Negative); Leukocyte Esterase-Dipstick 100 /ul (Negative); Nitrite-Dipstick Negative (Negative); Occult Blood-Urine 10 /ul (Negative); Protein-Dipstick Negative (Negative); Urine Bilirubin Dipstick Negative (Negative); Urine Clarity Clear (Clear); Urine Urobilinogen Normal (Normal); Urine pH 6.5 (5.0 - 8.0)
[2021-11-05 14:10] LABS: Squamous Epithelial Cells - UA 0-5 SEEN /hpf (5-10)
== END ==
PROVIDERS: PCP Nurse Practitioner Family; Visit Provider Nurse Practitioner Family
DX: N39.0 Urinary tract infection, site not specified (principal)
CPT/HCPCS: 81001; 87086; 87088

== ENCOUNTER → 2021-11-10 12:27 | Outpatient (REF) | payer MEDICARE, SELFPAY ==
[2021-11-10 12:29] LABS: Mucous, Urine 0 SEEN /hpf (<or=2+); Red Blood Cells-Urine 0 SEEN /hpf (0-5)
[2021-11-10 12:37] LABS: Color, Urine Yellow (Yellow); Glucose, Dipstick Normal (Normal); Ketone-Dipstick Negative (Negative); Leukocyte Esterase-Dipstick 500 /ul (Negative); Nitrite-Dipstick Negative (Negative); Occult Blood-Urine Negative /ul (Negative); Protein-Dipstick 15 mg/dl (Negative); Specific Gravity, Urine 1.015 (1.002-1.030); Urine Bilirubin Dipstick Negative (Negative); Urine Clarity Clear (Clear); Urine Urobilinogen Normal (Normal)
[2021-11-10 12:39] LABS: White Blood Cells 25-50 SEEN /hpf (0-5)
[2021-11-10 12:40] LABS: Bacteria 2+ /hpf (None Seen); Squamous Epithelial Cells - UA 5-10 SEEN /hpf (5-10)
== END ==
LOC: LABSPEC 12:27
PROVIDERS: PCP Nurse Practitioner Family; Visit Provider Nurse Practitioner Family
DX: N39.0 Urinary tract infection, site not specified (principal)
CPT/HCPCS: 81001; 87086; 87088

== ENCOUNTER 2021-11-19 12:51 | Outpatient (CLI) | payer MEDICARE, SELFPAY ==
[2021-11-19 13:25] LABS: Bacteria 0 SEEN /hpf (None Seen); Mucous, Urine 0 SEEN /hpf (<or=2+); Red Blood Cells-Urine 0 SEEN /hpf (0-5); Squamous Epithelial Cells - UA 0 SEEN /hpf (5-10); White Blood Cells 0 SEEN /hpf (0-5)
[2021-11-19 13:29] LABS: Color, Urine Yellow (Yellow); Glucose, Dipstick Normal (Normal); Ketone-Dipstick Negative (Negative); Leukocyte Esterase-Dipstick 500 /ul (Negative); Nitrite-Dipstick Negative (Negative); Occult Blood-Urine Negative /ul (Negative); Protein-Dipstick Negative (Negative); Urine Bilirubin Dipstick Negative (Negative); Urine Clarity Clear (Clear); Urine Urobilinogen Normal (Normal); Urine pH 6.5 (5.0 - 8.0)
== END 2021-11-19 23:59 | disposition short-term general hospital (02) ==
LOC: LABSPEC 12:52
PROVIDERS: PCP Nurse Practitioner Family; Visit Provider Nurse Practitioner Family
DX: N39.0 Urinary tract infection, site not specified (principal)
CPT/HCPCS: 81001; 87077; 87086; 87088; 87186

== ENCOUNTER 2021-12-03 11:30 | Outpatient (REF) | payer MEDICARE, SELFPAY ==
[2021-12-03 13:27] LABS: Bacteria 0 SEEN /hpf (None Seen); Mucous, Urine 0 SEEN /hpf (<or=2+); Red Blood Cells-Urine 0 SEEN /hpf (0-5)
[2021-12-03 13:34] LABS: Color, Urine Yellow (Yellow); Glucose, Dipstick Normal (Normal); Ketone-Dipstick Negative (Negative); Leukocyte Esterase-Dipstick 500 /ul (Negative); Nitrite-Dipstick Negative (Negative); Occult Blood-Urine Negative /ul (Negative); Protein-Dipstick Negative (Negative); Urine Bilirubin Dipstick Negative (Negative); Urine Clarity Clear (Clear); Urine Urobilinogen Normal (Normal)
[2021-12-03 13:43] LABS: Squamous Epithelial Cells - UA 0-5 SEEN /hpf (5-10); White Blood Cells 0-5 SEEN /hpf (0-5)
== END 2021-12-03 23:59 | disposition short-term general hospital (02) ==
LOC: LABSPEC 11:30
PROVIDERS: PCP Nurse Practitioner Family; Visit Provider Nurse Practitioner Family
DX: N39.0 Urinary tract infection, site not specified (principal)
CPT/HCPCS: 81001; 87077; 87086; 87088; 87186

== ENCOUNTER 2021-12-08 15:07 | Outpatient (CLI) | payer MEDICARE, SELFPAY ==
[2021-12-08 16:04] LABS: Bacteria 0 SEEN /hpf (None Seen); Mucous, Urine 0 SEEN /hpf (<or=2+)
[2021-12-08 16:25] LABS: Color, Urine Straw (Yellow); Glucose, Dipstick Normal (Normal); Ketone-Dipstick Negative (Negative); Leukocyte Esterase-Dipstick 500 /ul (Negative); Nitrite-Dipstick Negative (Negative); Occult Blood-Urine 25 /ul (Negative); Protein-Dipstick Negative (Negative); Urine Bilirubin Dipstick Negative (Negative); Urine Clarity Clear (Clear); Urine Urobilinogen Normal (Normal)
[2021-12-08 16:36] LABS: Red Blood Cells-Urine 0-5 SEEN /hpf (0-5); Squamous Epithelial Cells - UA 0-5 SEEN /hpf (5-10); White Blood Cells 5-10 SEEN /hpf (0-5)
== END 2021-12-08 23:59 | disposition short-term general hospital (02) ==
LOC: LABSPEC 15:09
PROVIDERS: PCP Nurse Practitioner Family; Visit Provider Nurse Practitioner Family
DX: N39.0 Urinary tract infection, site not specified (principal)
CPT/HCPCS: 81001; 87086; 87088

== ENCOUNTER → 2024-02-22 | Outpatient (CLI) | payer MEDICARE, SELFPAY ==
--- NOTE | 2024-02-22 13:36 | NEURO ---
NCS and/or EMG Patient Report Ordering Doctor: Shashank Morales DATE OF SERVICE: 02/22/24 Pat presents for electrodiagnostic testing of the left upper limb. She reports numbness and tingling in the first 3 digits of the left hand and also reports intermittent left upper arm pain. Electrodiagnostic findings: Left median motor nerve demonstrates normal distal latency, amplitude and conduction velocity. Left ulnar motor nerve demonstrates normal distal latency, amplitude and conduction velocity across the elbow. Normal left median and ulnar F?waves. Prolonged left median sensory latency at the wrist. Normal left ulnar and radial sensory responses. Needle EMG testing was performed the left upper limb. 1+ fibrillation potentials were noted in the left mid cervical paraspinals, left biceps and left pronator teres. Motor unit action potentials were normal amplitude and duration. Electrodiagnostic impression: This is an abnormal study in the left upper limb 1. Electrodiagnostic findings suggestive of acute left-sided C6 radiculopathy. Recommend correlation with cervical spine imaging. 2. Electrodiagnostic evidence suggestive of left-sided median mononeuropathy. This is consistent with a mild left carpal tunnel syndrome. Multi Select Codes Neurology Neurology Interp Codes: 19887-26 Musc test done w/n test comp (interp) and 50434-58 Nrv cndj tst 5-6 studies (interp)
== END | disposition home or self-care (01) ==
LOC: PSN 09:58
PROVIDERS: PCP Nurse Practitioner Family; Referring Provider Specialist; Visit Provider Specialist
DX: G56.02 Carpal tunnel syndrome, left upper limb (principal); M79.642 Pain in left hand
CPT/HCPCS: 95886; 95909

== ENCOUNTER 2024-05-07 11:23 | Outpatient (CLI) | payer MEDICARE, SELFPAY ==
[2024-05-07 15:25] LABS: Absolute Lymphocyte Count 2.12 X10^3/uL (0.83-4.51); Absolute Neutrophil Count 3.5 X10^3/uL (2.0-7.7); Basophil# 0.02 X10^3/uL; Basophil% 0.3 % (0-1); Eosinophils% 1.7 % (0-5); Hematocrit 39.3 % (37-47); Hemoglobin 12.8 g/dL (12.0-15.0); Lymphocyte # 2.12 X10^3/ul (0.83-4.51); Lymphocyte % 35.3 % (19-41); Mean Corp Hgb Conc 32.6 g/dL (32-36); Mean Corpuscular Hgb 30.7 pg (27.0-32.0); Mean Corpuscular Volume 94.2 fL (81-99); Mean Platelet Vol. 9.8 fl (6.2-12.0); Monocyte# 0.28 X10^3/uL; Monocyte% 4.7 % (0-10); NRBC Flagged by Analyzer 0 % (0-5); Neutrophil # 3.47 X10^3/uL (2.7-7.7); Neutrophil % 57.7 % (47-70); Platelet Count 330 K/mm3 (150-450); RBC Distribution Width CV 12.2 % (11.6-14.6); Red Blood Count 4.17 M/mm3 (4.2-5.4)
[2024-05-07 15:49] LABS: Hemoglobin A1c 5.4 % (3.8-5.6)
[2024-05-07 16:25] LABS: AST(SGOT) 22 U/L (15-37); Alanine Aminotransfer ALT/SGPT 24 U/L (13-56); Albumin, Serum 3.8 g/dL (3.2-5.0); Alkaline Phosphatase 24 U/L (45-117); Anion Gap 6 (5-15); BUN 20 mg/dL (7-18); BUN/Creat Ratio 21.1 RATIO (10-20); Calcium,Total 9.7 mg/dL (8.5-10.1); Chloride 107 mmol/L (98-107); Cholesterol 274 mg/dL (200); Creatinine, Serum 0.95 mg/dL (0.55-1.02); EST Glomerular Filtration Rate 62 mL/min (>60); Est Glom Filt Rate - Afr Amer 74 mL/min (>60); Globulin 3.9 g/dL (2.2-4.2); Glucose 88 mg/dL (74-106); High Density Lipoprotein 55 mg/dL; Potassium 4.1 mmol/L (3.5-5.1); Protein, Total 7.7 g/dL (6.4-8.2); Sodium Level 138 mmol/L (136-145); Triglycerides 286 mg/dL; Very Low Density Lipoprotein 57 mg/dL (5-40)
[2024-05-07 17:03] LABS: Vitamin B12 416 pg/mL (211-911); Vitamin D,25 Hydroxy 37.2 ng/mL
[2024-05-09 15:09] LABS: Mycoplasma Pneum AB IgG 131 U/mL (0-99); Mycoplasma pneum. AB IgM < 770 U/mL (0-769)
[2024-05-11 11:08] LABS: Vitamin D 1,25-Dihydroxy 36.2 pg/mL (24.8-81.5)
== END 2024-05-07 23:59 | disposition home or self-care (01) ==
PROVIDERS: PCP Nurse Practitioner Family; Visit Provider Nurse Practitioner Family
DX: I10 Essential (primary) hypertension (principal); R06.09 Other forms of dyspnea; R53.83 Other fatigue; U09.9 Post COVID-19 condition, unspecified; Z13.1 Encounter for screening for diabetes mellitus; E55.9 Vitamin D deficiency, unspecified
CPT/HCPCS: 36415; 80053; 80061; 82306; 82607; 82652; 82746; 83036; 85025; 86738

== ENCOUNTER 2025-04-20 01:09 | Observation (INO) | payer MEDICARE, SELFPAY ==
[2025-04-20] VITALS (12 sets, daily range): BP systolic 93–146; BP diastolic 63–111; PULSE 66–92; RESP 15–18; TEMP 36.5–37.1; O2SAT 97–100; BMI 30.7; BMI 26.7
--- NOTE | 2025-04-20 01:43 | CT_ITS ---
PROCEDURE: STROKE CTA HEAD AND NECK W/CON 04/20/2025 REASON FOR EXAM: VERTIGO TECHNIQUE: STROKE CTA HEAD AND NECK W/CON Multiplanar and multisequence images were obtained. CONTRAST: Isovue-370 VOLUME: 100 mL One or more dose reduction techniques were used (e.g., Automated exposure control, adjustment of the mA and/or kV according to patient size, use of iterative reconstruction technique). RADIATION DOSE SUMMARY: CTDlvol: 17.7 mGy DLP: 661 mGycm COMPARISON: 04/20/2025. FINDINGS: Normal bilateral petrous carotid arteries. Normal right cavernous carotid artery with a normal supraclinoid bifurcation. Normal left cavernous carotid artery with a normal supraclinoid bifurcation. Normal right A1 segments of the anterior cerebral artery. Normal left A1 segments of the anterior cerebral artery. Normal intact anterior communicating artery (ACOM). Normal bilateral A2 segments of the anterior cerebral arteries. Normal right M1 and M2 segments of the middle cerebral arteries, with a normal M1 bifurcation. Normal left M1 and M2 segments of the middle cerebral arteries, with a normal M1 bifurcation. Normal right posterior communicating artery (PCOM). Normal left posterior communicating artery (PCOM). Normal bilateral vertebral arteries. Normal basilar artery with a normal basilar bifurcation. The visualized bilateral superior cerebellar (SCA) arteries are normal. Normal bilateral P1, P2 and visualized P3 segments of the posterior cerebral arteries. There is no demonstrated aneurysm of the [place] of [place]. There is no major vessel occlusion or hemodynamically significant stenosis. There is no demonstrated abnormality of the visualized brain. Technique: Axial CT angiographic images of the neck. Reformatted coronal and sagittal images. 3D, MIP images. Reconstructed images were reviewed on a different workstation by radiologist. RIGHT CAROTID ARTERIES: Normal right common carotid artery (CCA). Normal right common carotid bulb. Normal origin of the right internal carotid (ICA) artery without a hemodynamically significant stenosis. Normal visualized cervical portion of the right internal carotid artery. Normal origin of the right external carotid artery (ECA). LEFT CAROTID ARTERIES: Normal left common carotid artery (CCA). Normal left common carotid bulb. Normal origin of the left internal carotid (ICA) artery without a hemodynamically significant stenosis. Normal visualized cervical portion of the left internal carotid artery. Normal origin of the left external carotid artery (ECA). VERTEBRAL ARTERIES: Normal bilateral vertebral artery without a hemodynamically significant stenosis. CT/STROKE CTA Head AND Neck W/Con IMPRESSION: Normal CT angiography of the head. Normal bilateral cervical carotid and vertebral arteries. Reading [facility] [address]
--- NOTE | 2025-04-20 01:43 | CT_ITS ---
PROCEDURE: STROKE BRAIN/HEAD WITHOUT CONT 04/20/2025 REASON FOR EXAM: VERTIGO TECHNIQUE: STROKE BRAIN/HEAD WITHOUT CONT Coronal and Sagittal reconstruction series were provided. One or more dose reduction techniques were used (e.g., Automated exposure control, adjustment of the mA and/or kV according to patient size, use of iterative reconstruction technique. RADIATION DOSE SUMMARY: CTDlvol: 44.99 mGy DLP: 762 mGycm COMPARISON: None. FINDINGS: Normal size of the ventricles and extra-axial spaces for the patient's age. Normal white matter tracts of the supratentorial brain. Normal basal ganglia and thalami. Normal brainstem. Normal cerebellum. There is no demonstrated extra-axial, intraparenchymal, or intraventricular hemorrhage. There are no findings of an acute ischemic infarction. Normal calvarium. There is no demonstrated fracture. Normal soft tissue structures. Normal visualized paranasal sinuses. CT/STROKE Brain/Head without Cont IMPRESSION: Normal unenhanced CT scan of the brain. Reading Location: [facility]
--- NOTE | 2025-04-20 01:44 | ED.VIS.STROK ---
HPI History of Present Illness Chief Complaint: Dizziness Informant: patient and EMS Narrative Narrative: Patient states she woke up about an hour ago and upon getting out of bed suddenly had vertigo that is been going on ever since. Does not seem to be better or worse with any certain activities or positions. Does not necessarily get worse with turning her head. No associated headache. She states her vision is a little funny in the left eye but she is having trouble telling because she wears reading glasses. She denies any recent URI or earache, no ear symptoms or tinnitus right now. Some nausea but no vomiting. She states she was able to walk but felt like she was going to fall and like she was off balance when she did. Never had this before. No recent head injuries. Takes no antiplatelet or anticoagulant medications. [facility] Medical History HTN (hypertension) Pneumonia due to 2019-V Acute respiratory failure with hypoxia Home Medications ?Medication ?Instructions ?Recorded ?Last Taken ?Type multivitamin with minerals 1 tab PO DAILY 07/19/21 Unknown History lisinopril 10 mg tablet 10 mg PO DAILY htn 07/21/21 07/18/21 History ascorbic acid (vitamin C) 500 mg 500 mg PO BREAKFAST #0 tabs 07/29/21 Unknown Rx tablet aspirin 81 mg tablet,delayed 162 mg (2 x 81 mg) PO DAILY #14 07/29/21 Unknown Rx release (Adult Low Dose Aspirin) tabs cholecalciferol (vitamin D3) 25 50 mcg (2 x 25 mcg (1,000 unit)) 07/29/21 Unknown Rx mcg (1,000 unit) tablet PO DAILY #0 tabs zinc sulfate 50 mg zinc (220 mg) 220 mg (4.4 x 50 mg zinc (220 mg)) 07/29/21 Unknown Rx capsule PO DAILY #0 caps Allergy/AdvReac Type Severity Reaction Status Date / Time No Known Allergies Allergy Verified 04/20/25 01:09 Family History no significant family his Surgical History History of appendectomy History of right hip replacement Social History (Updated 04/20/25 @ 03:[address] Chioma Pressley DO) Smoking Status: Never smoker alcohol intake: never substance use type: does not use what type of physical activity do you participate in: other details: Pickleball and tennis ROS ROS ED Constitutional Constitutional ED: Denies chills or fever(s) Eyes Eyes: Reports blurry vision left (mild); Denies diplopia ENT ENT ED: Reports vertigo; Denies ear pain, hearing loss, rhinorrhea, sore throat or tinnitus Cardiovascular Cardiovascular: Denies chest pain or palpitations Respiratory/Chest Respiratory/Chest: Denies cough or dyspnea Gastrointestinal Gastrointestinal: Reports nausea; Denies abdominal pain, diarrhea or vomiting Genitourinary Genitourinary ED: Denies dysuria or hematuria Musculoskeletal Musculoskeletal: Denies back pain or neck pain Integumentary Denies abscess or rash Neurologic Neurologic: Denies headache(s), paresthesias or weakness Psychiatric Psychiatric: Denies anxiety or suicidal thoughts EXAM Physical Exam Const Vital Signs: 04/20/25 01:10 04/20/25 01:15 04/20/25 01:43 Temperature 98.7 F 98.7 F Temperature Source Oral Oral Pulse Rate 92 70 66 Respiratory Rate 18 16 15 Blood Pressure 138/111 H 146/83 H 141/72 H Blood Pressure Mean 120 104 95 Pulse Ox 97 98 99 Oxygen Delivery Method Room Air Room Air Room Air 04/20/25 01:47 04/20/25 02:13 04/20/25 02:30 Temperature Temperature Source Pulse Rate 67 68 Respiratory Rate 18 18 Blood Pressure 134/77 H 143/93 H Blood Pressure Mean 96 109 Pulse Ox 99 100 Oxygen Delivery Method Room Air Room Air Room Air 04/20/25 02:34 04/20/25 02:36 Temperature 97.7 F L Temperature Source Pulse Rate 68 68 Respiratory Rate 18 18 Blood Pressure 143/93 H 143/93 H Blood Pressure Mean 109 109 Pulse Ox 100 100 Oxygen Delivery Method Room Air Positive well nourished and well developed General Appearance ED: well developed and NAD HEENT Reports moist mucous membranes normocephalic and atraumatic Eyes PERRL and EOMs intact bilaterally Eyes Narrative: Direction changing horizontal nystagmus. Negative skew test. Normal jolt test. No vertical or rotatory nystagmus. Visual prabhakar all intact. Neck full ROM and supple Resp normal respiratory effort and clear to auscultation bilaterally Cardio regular rate, regular rhythm and no murmurs GI non-tender and non-distended Auscultation: normoactive bowel sounds Palpation: soft Back/Spine no CVA tenderness General Back: other FROM Extremity normal to inspection General Extremety ED: Negative for edema, pulses abnormal or tenderness General Extremity: Negative for edema or pulses abnormal Neuro oriented x3, CN's II-XII intact bilaterally and no sensory deficits noted Neuro Narrative: Normal speech. Normal [id number] and [id number] bilaterally. No Viral inattention/hemineglect. Sensorium / Orientation: awake and alert Motor Exam: strength 5/5 throughout Psych mental status grossly normal Skin no rashes or lesions noted and no wounds MDM MDM MDM Narrative Medical decision making narrative: Patient has normal vital signs including a blood pressure in the 130s, and vertigo that she describes starting upon getting out of bed when she woke up to use the restroom. She was concerned because it was persistent. She went to bed at 2200, she was evaluated here in the ED the around 0130. Technically in the thrombolytic window, but nondisabling symptoms that she is still able to walk just feels a little off balance. In all honesty I suspect the etiology is probably peripheral. However the persistence of symptoms, and she has abnormal findings in 2 out of the 3 portions of the hints testing, concerning for central etiology, but since they are nondisabling, I do not think she is a thrombolytic candidate. She was sent for emergent CT and CT angiography of the head and neck, all of which on my interpretation are normal, and I immediately discussed with stroke neurology who looked at the images and agrees, and agrees that she would not recommend thrombolytics, but would recommend admission, MRI, and neurology consultation. Her EKG is normal on my interpretation, patient passed her swallow eval and was given meclizine and is actually feeling better. Lab Data Attestation: I reviewed the patient's lab results. Labs: Laboratory Results - last 24 hr 04/20/25 04/20/25 01:18 01:53 WBC 7.3 RBC 3.97 L Hgb 12.8 Hct 36.4 L MCV 91.7 MCH 32.2 H MCHC 35.2 RDW Std Deviation 40.1 RDW Coeff of Saul 11.9 Plt Count 324 MPV 9.3 Immature Gran % (Auto) 0.100 Neut % (Auto) 34.8 L Lymph % (Auto) 54.8 H [place] % (Auto) 7.1 Eos % (Auto) 2.7 Baso % (Auto) 0.5 Absolute Neuts (auto) 2.5 Absolute Lymphs (auto) 3.99 Nucleated RBC % 0 PT 12.3 INR 0.9 APTT 30.0 Sodium 139 Potassium 3.7 Chloride 105 Carbon Dioxide 21.1 Anion Gap 13 BUN 23 H Creatinine 1.02 Estim Creat Clear Calc 44.46 L Est GFR (MDRD) Non-Af 58 L BUN/Creatinine Ratio 22.1 H Glucose 101 H Calcium 9.6 POC Glucose 107 H Radiography Diagnostic Testing: Clinical Impression(s) from Imaging Studies Brain CT 04/20/25 01:43 IMPRESSION: Normal unenhanced CT scan of the brain. Reading [facility] Head/Neck CTA 04/20/25 01:43 IMPRESSION: Normal CT angiography of the head. Normal bilateral cervical carotid and vertebral arteries. Reading Location: [place] [address] Rhythm Strip Rhythm Strip: Sinus Rhythm Rate: 70 Ectopy: None EKG Initial EKG: Attestation: I personally reviewed and interpreted this EKG as follows: Interpretation: Sinus Rhythm and No Acute Injury Pattern Comments: Nml axis & intervals; nml EKG Management Discussion w/another healthcare provider: Hospitalist and Pipe Smoking Machine Operator (Stroke neurology Dr. Cannon) Discharge Plan Dx/Rx/DC Orders Clinical Impression: Vertigo Disposition Disposition: Acute Care Hospital [facility] Discharge Date/Time: 04/20/25 03:37 NIHSS NIHSS 1a. Level of Consciousness: 0 - Alert; keenly responsive 1b. LOC Questions: 0 - Answers BOTH questions correctly 1c. LOC Commands: 0 - Performs BOTH tasks correctly 2. Best Gaze: 0 - Normal 3. Visual: 0 - No visual loss 4. Facial Palsy: 0 - Normal symmetrical movements 5a. Left Arm: 0 - No drift; arm holds 90 (or 45) degrees for full 10 seconds 5b. Right Arm: 0 - No drift; arm holds 90 (or 45) degrees for full 10 seconds 6a. Left Le - No drift; leg holds 30-degree position for full 5 seconds 6b. Right Le - No drift; leg holds 30-degree position for full 5 seconds 7. Limb Ataxia: 0 - Absent 8. Sensory: 0 - Normal; no sensory loss 9. Best Language: 0 - No aphasia; normal 10. Dysarthria: 0 - Normal 11. Extinction and Inattention: 0 - No abnormality Total: 0 Stroke Questions Stroke Team Activated: No (see MDM) Was Patient considered for Endovascular Intervention?: No (negative CTA) IV Thrombolytic Administered: No (nondisabling sx, improving)
[2025-04-20] MEDS: Meclizine HCl 25 MG Tablet PO (01:51)
[2025-04-20 01:56] LABS: Absolute Lymphocyte Count 3.99 X10^3/uL (0.83-4.51); Absolute Neutrophil Count 2.5 X10^3/uL (2.0-7.7); Basophil# 0.04 X10^3/uL; Basophil% 0.5 % (0-1); Eosinophils% 2.7 % (0-5); Hematocrit 36.4 % (37-47); Hemoglobin 12.8 g/dL (12.0-15.0); Lymphocyte # 3.99 X10^3/ul (0.83-4.51); Lymphocyte % 54.8 % (19-41); Mean Corp Hgb Conc 35.2 g/dL (32-36); Mean Corpuscular Hgb 32.2 pg (27.0-32.0); Mean Corpuscular Volume 91.7 fL (81-99); Mean Platelet Vol. 9.3 fl (6.2-12.0); Monocyte# 0.52 X10^3/uL; Monocyte% 7.1 % (0-10); NRBC Flagged by Analyzer 0 % (0-5); Neutrophil # 2.52 X10^3/uL (2.7-7.7); Neutrophil % 34.8 % (47-70); Platelet Count 324 K/mm3 (150-450); RBC Distribution Width CV 11.9 % (11.6-14.6); RBC Distribution Width SD 40.1 fl (35.1-43.9); Red Blood Count 3.97 M/mm3 (4.2-5.4); White Blood Count 7.3 K/mm3 (4.4-11.0)
[2025-04-20 02:12] LABS: Bedside Glucose 107 mg/dL (74-106)
[2025-04-20 02:14] LABS: International Normalized Ratio 0.9; Prothrombin Time (Protime)PT. 12.3 SECONDS (11.7-14.9)
--- NOTE | 2025-04-20 02:43 | MRI_ITS ---
PROCEDURE: BRAIN WITHOUT CONTRAST 04/20/2025 REASON FOR EXAM: DIZZINESS TECHNIQUE: Noncontrast brain MRI. Multiplanar and multisequence images were obtained. COMPARISON: CT head and CTA neck and head from 04/20/2025 FINDINGS: Brain: Intra-axial or extra-axial hemorrhage. No mass, mass effect or midline shift. No restricted diffusion. Minimal periventricular hyperintense signal indicating mild ischemic small-vessel disease. No significant abnormal signal otherwise. Ventricles: The ventricles and sulci are mildly prominent, but as expected for the patient's age Major Intracranial Vessels: Normal vascular flow voids in the anterior circulation and vertebrobasilar system. Sinuses: Predominantly clear. Mastoids: No significant effusions identified. MRI/Brain without Contrast IMPRESSION: No acute process. Reading Location[facility]
--- NOTE | 2025-04-20 02:43 | ECHOD_ITS ---
Reason For Study Reason For Study: TIA/CVA Procedure This was a 2D Doppler, Color Flow transthoracic echocardiogram. Exam performed portable in patient room. Left Ventricle Normal left ventricle. Normal left ventricular wall thickness. Left ventricular systolic function is normal. The LV ejection fraction is 60 %. No regional wall motion abnormalities noted. Right Ventricle Normal right ventricle. Normal systolic function. Atria Normal left atrium. Normal right atrium. No interatrial septal defect. Mitral Valve There is no stenosis. Trivial mitral valve insufficiency. Tricuspid Valve Trivial tricuspid valve insufficiency. Aortic Valve There is no aortic stenosis. No aortic valve insufficiency. Pulmonic Valve No pulmonic valve insufficiency. Great Vessels Normal sized aortic root. Pericardium/Pleural No pericardial effusion. MMode/2D Measurements & Calculations LVIDd: 4.0 cm IVSd: 1.1 cm Ao root diam: 3.3 cm LVIDs: 2.2 cm LVPWd: 1.0 cm RVDd: 3.5 cm FS: 46.1 % LAV(MOD-bp): 41.8 ml LVAd ap4: 24.5 cm2 LVAd ap2: 23.0 cm2 LAV(MOD-bp) Indexed: 24.2 ml/m2 LVLd ap4: 7.9 cm LVLd ap2: 7.9 cm LAV(MOD-sp2): 39.4 ml EDV(MOD-sp4): 61.9 ml EDV(MOD-sp2): 56.3 ml LAV(MOD-sp4): 40.8 ml EDV(sp4-el): 65.0 ml EDV(sp2-el): 57.0 ml LVAs ap4: 13.1 cm2 LVAs ap2: 12.7 cm2 LVLs ap4: 6.6 cm LVLs ap2: 6.7 cm ESV(MOD-sp4): 21.7 ml ESV(MOD-sp2): 19.6 ml ESV(sp4-el): 22.1 ml ESV(sp2-el): 20.2 ml EF(MOD-sp4): 64.9 % EF(MOD-sp2): 65.1 % EF(sp4-el): 66.0 % SV(MOD-sp4): 40.1 ml SV(MOD-sp2): 36.7 ml SV(sp4-el): 42.9 ml SI(MOD-sp4): 23.2 ml/m2 SI(MOD-sp2): 21.2 ml/m2 LA A4 area: 16.6 cm2 LA dimension(2D): 3.0 cm RA A4 area: 14.4 cm2 TAPSE: 2.5 cm Time Measurements MV dec time: 0.27 sec Doppler Measurements & Calculations MV E max gus: 58.5 cm/sec Lat Peak E' Gus: 10.3 cm/sec Med Peak E' Gus: 6.7 cm/sec MV A max gus: 101.7 cm/sec E/E' lat: 5.7 E/E' med: 8.7 MV E/A: 0.57 Ao V2 max: 168.1 cm/sec LV V1 max: 97.6 cm/sec MV dec slope: 212.7 cm/sec2 Ao max P.3 mmHg LV V1 max P.8 mmHg Ao V2 mean: 112.8 cm/sec LV V1 mean P.3 mmHg Ao mean P.9 mmHg LV V1 mean: 70.9 cm/sec Ao V2 VTI: 37.3 cm LV V1 VTI: 23.1 cm AV (velocity ratio): 0.62 PA V2 max: 133.6 cm/sec TR max gus: 232.7 cm/sec TR max P.7 mmHg ECHO/Echo Complete Interpretation Summary The LV ejection fraction is 60 %. Left ventricular systolic function is normal. Trivial mitral valve insufficiency. Trivial tricuspid valve insufficiency. Ordering Physician: Chioma Pressley Referring Physician: Vilma Giron Performed By: Jesse, Marti, RDCS
--- OUTSIDE RECORDS SUMMARY | 2025-04-20 02:44 | XMS RPT_ITS | CCD ---
Author Organization [facility] ion Partnership [facility] Care Team Providers Care Tape Folding Machine Operator Name Role Phone Dossi Crystal MCKEON Unavailable Mona Diaz Unavailable BREE Farrell Unavailable Unavailable Azucena Jeffers Unavailable Unavailable Andrea Hull Unavailable Davie Daniels Unavailable Chantale Lynn Unavailable Unavailable Andrea Hull Unavailable Unavailable Unavailable Mona Diaz MD Unavailable [phone] Davie Daniels Unavailable BREE Farrell LPN Unavailable Unavailable Unavailable Unavailable Corie Rush MD Primary Care Provider Bree GARCIA, FOSTER CARE THERAPIST-C Vilma Dillard Primary Care Provider Unavailable Dr. Shashank Morales Referring Provider [phone] Dr. Shashank Morales Other Provider Dr. Marcin Fong Attending Provider [phone] Vilma Giron NP Primary Care UnavailVilma Rosenberg NP Attending UnavailVilma Rosenberg NP Primary Care Unavailcorinne e Shashank Morales Attending Unavailable Medications Current Medications Medication Drug Class(es) Dates Sig (Normalized) Sig (Original) ascorbic acid 500 mg oral tablet (1 source) Vitamin C Start: 07-29-2021 take 500 mg by mouth at breakfast Ascorbic Acid (Vitamin C) Active 500 MG PO WITH BREAKFAST 0 July 29, 2021 12:00am aspirin 81 mg delayed release oral tablet (1 source) Platelet Aggregation Inhibitor, Nonsteroidal Anti-inflammatory Drug Start: 07-29-2021 Aspirin (Adult Low Dose Aspirin) 81 mg tablet,delayed release (DR/EC) Active 162 MG PO DAILY July 29, 2021 12:00am take for 7 days cholecalciferol 0.025 mg oral tablet (1 source) Vitamin D Start: 07-29-2021 take 50 ug by mouth once daily Cholecalciferol (Vitamin D3) Active 50 MCG PO DAILY 0 July 29, 2021 12:00am lisinopril 10 mg oral tablet (18 sources) Angiotensin Converting Enzyme Inhibitor Start: 11-09-2019 Lisinopril Active 10 MG DAILY July 21, 2021 12:00am Comment on above: Take 1 tablet by soy once daily. Multivitamin With Minerals (1 source) Start: 07-19-2021 take 1 tablet by mouth once daily Multivitamin With Minerals Active 1 TABLET PO DAILY July 19, 2021 12:00am zinc sulfate 220 mg oral capsule (1 source) Start: 07-29-2021 take 220 mg by mouth once daily Zinc Sulfate Active 220 MG PO DAILY 0 July 29, 2021 12:00am Completed/Discontinued Medications Medication Drug Class(es) Dates Sig (Normalized) Sig (Original) arthrozene and extra collagen powder daily (glucoasmine/hylaur onic acid) (1 source) arthrozene and extra collagen powder daily (glucoasmine/hylau ronic acid) Active azithromycin 250 mg oral tablet (9 sources) Macrolide Antimicrobial Start: 12-31-2010 End: 01-05-2011 ZITHROMAX 250 MG TABS Take two (2 ) tablets day one, then one (1) tablet a day for four (4) more days AZITHROMYCIN [id number] Tammy LUEVANO carbamide peroxide 65 mg/ml otic solution (1 source) Start: 05-16-2020 carbamide peroxide (DEBROX) 6.5 % otic solution Indications: Excessive ear wax, left Use 5 Drops in both ears twice daily. 1 Bottle 0 05/16/2020 Active Comment on above: Use 5 Drops in both ears twice daily. GUAIFENESIN-CODEINE LIQD (5 sources) Start: 12-31-2010 End: 01-05-2011 GUAIFENESIN-CODEIN E LIQD 5 ml every 8 hours as needed for cough GUAIFENESIN-CODEIN E LIQD [id number] Tammy LUEVANO GUAIFENESIN-CODEINE LIQD (4 sources) Start: 12-31-2010 End: 01-05-2011 GUAIFENESIN-CODEIN E LIQD 5 ml every 8 hours as needed for cough GUAIFENESIN-CODEIN E LIQD [id number] Tammy LUEVANO ibuprofen 200 mg oral tablet (1 source) Nonsteroidal Anti-inflammatory Drug Start: 04-25-2018 take 200-400 mg by mouth every six hours as needed ibuprofen (MOTRIN) 200 mg tablet Take 1-2 tablets by mouth every 6 hours as needed for Pain (Take with food.). 0 04/25/2018 Active Comment on above: Take 1-2 tablets by mouth every 6 hours as needed for Pain (Take with food.). ondansetron 4 mg oral tablet (1 source) Serotonin-3 Receptor Antagonist Start: 07-14-2021 take 1 tablet by mouth every eight hours as needed Zofran 4 MG Oral Tablet 1 (one) Tablet every 8 hours prn for 0 days Quantity: 10 {Tablet} Refills: 0 Ordered: 14-Jul-2021 Joe FORTUNE, Mona Diaz MD, Mona Morataya Start : 14-Jul-2021 Active OTC PRODUCT (1 source) Start: 01-22-2013 OTC PRODUCT Slimfast once daily 0 01/22/2013 Active Comment on above: Slimfast once daily QC Tumeric Complex 500 MG Oral Capsule (15 sources) take 1 mg by mouth once daily QC Tumeric Complex 500 MG Oral Capsule daily (500 MG) Active Problems Active Problems Problem Classification Problem Date Documented Da te Episodic/Chronic Anxiety disorders (15 sources) Acute stress disorder; Translations: [Stress reaction (Renamed from Acute reaction to stress)] 07-01-2020 Chronic Comment on above: dtr not talk to her since 2012. dtr move into her farm house she use to live at. still owned by her ex . upset because she said something to ex about issues on the farm need to done. she apologize to her and now dtr not talk yet not see grandkids one has down's syndrome dtr not talk to her since 2012. dtr move into her farm house she use to live at. still owned by her ex and that dtr got everything leaving nothing for other dtr. upset because she said something to ex about issues on the farm need to done. she apologize to her and now dtr not talk yet not see tim braden has down's syndrome. at this point oliviafeel needs cousneling. Disorders of lipid metabolism (20 sources) Hyperlipidemia; Translations: [Hyperlipidemia] Onset: 09-08-2016 07-01-2020 Chronic Comment on above: LDL very high. recom mend statin. talk about CCTA. talk about worries and barriers to statins.refuse statins, BV screening neg Essential hypertension (18 sources) Benign hypertension; Translations: [Hypertension, benign] Onset: 05-31-2017 07-01-2020 Chronic Malaise and fatigue (20 sources) Fatigue; Translations: [Fatigue] 06-03-2020 Episodic Nausea and vomiting (2 sources) Nausea; Translations: [Nausea] 07-14-2021 Episodic Osteoarthritis (15 sources) Osteoarthritis of knee; Translations: [Osteoarthritis, localized, knee] 07-01-2020 Chronic Comment on above: seen Dr. douglas. inj ection and now better right knee. seen Dr. douglas. inj ection left worse bone on bone right now on collaen and helping. tumeric. tylenol Other and unspecified benign neoplasm (1 source) History of polyp of colon; Translations: [Personal history of colonic polyps] 04-16-2009 Episodic Other bone disease and musculoskeletal deformities (7 sources) Segmental and somatic dysfunction; Translations: [Segmental and somatic dysfunction of lumbar region] Onset: 04-28-2017 04-28-2017 Episodic Other bone disease and musculoskeletal deformities (19 sources) Osteopenia; Translations: [Osteopenia] 09-30-2020 Episodic Comment on above: 09-26.2 hip mild on calcium and weight bearing exercises. Other ear and sense organ disorders (20 sources) Hearing loss; Translations: [Hearing loss] 07-01-2020 Chronic Other nutritional; endocrine; and metabolic disorders (20 sources) Overweight; Translations: [Overweight] 07-01-2020 Chronic Comment on above: pan smoothie in am and lunch salad supper not much.not eat before bed. no drink calories not alot sweets. active tennis, bike, pickleball, line dancing.HS 109, after second baby 162 pounds then 130 slow gain back up to 160. (during separation 1998 122)goal weight 135 Other nutritional; endocrine; and metabolic disorders (17 sources) Body mass index 30+ - obesity; Translations: [BMI 30.0-30.9,adult] 07-01-2020 Chronic Other nutritional; endocrine; and metabolic disorders (2 sources) Hypercalcemia; Translations: [Hypercalcemia] 06-01-2021 Chronic Other nutritional; endocrine; and metabolic disorders (5 sources) H/O: raised blood lipids; Translations: [Hyperlipidemia] 06-03-2020 Episodic Comment on above: refuse statins, BV s creening neg Other nutritional; endocrine; and metabolic disorders (10 sources) Overweight; Translations: [Overweight] 09-30-2020 Episodic Comment on above: pan smoothie in am and lunch salad supper not much.not eat before bed. no drink calories not alot sweets. active tennis, bike, pickleball, line dancing.HS 109, after second baby 162 pounds then 130 slow gain back up to 160. (during separation 1998 122)goal weight 135 Other screening for suspected conditions (not mental disorders or infectious disease) (7 sources) Patient encounter status; Translations: [Encounter for screening mammogram for breast cancer (Renamed from Encounter for screening mammogram for malignant neoplasm of breast)] Resolved: 04-03-2021 04-03-2021 Episodic Other upper respiratory infections (2 sources) Upper respiratory infection; Translations: [URI (upper respiratory infection)] 07-14-2021 Episodic Residual codes; unclassified (20 sources) Postmenopausal state; Translations: [Postmenopausal (Renamed from Postmenopausal status)] 06-03-2020 Episodic Residual codes; unclassified (16 sources) Disturbance in sleep behavior; Translations: [Sleep disturbance] 07-01-2020 Episodic Comment on above: sleep 9pm-3am up and back down to 6 am. nap 30 minutes. she feels rested in am and after nap. no caffiene. she question Residual codes; unclassified (20 sources) Chronic back pain ; Translations: [Back pain, chronic] 07-01-2020 Episodic Comment on above: not bad now see chir opactic Residual codes; unclassified (14 sources) Family history of cancer of colon; Translations: [Family history of colon cancer requiring screening colonoscopy] 07-07-2020 Episodic Residual codes; unclassified (3 sources) Non-smoker; Translations: [Non-smoker] 09-30-2020 Episodic Spondylosis; intervertebral disc disorders; other back problems (13 sources) Sciatica; Translations: [Chronic back pain ] Onset: 04-28-2017 04-28-2017 Episodic Comment on above: not bad now see chir opactic Unclassified (20 sources) Patient encounter status; Translations: [Encounter for screening mammogram for breast cancer (Renamed from Encounter for screening mammogram for malignant neoplasm of breast)] Resolved: 07-01-2020 06-03-2020 Comment on above: 07-01-20 [facility]: MOCA 30/30, Cognivue 82, 07-01-20 [facility]: MOCA 30/30, Cognivue 82, colonoscopy 04-15-2015, mammo 08-03-19, BD 8-2-17 07-01-20 [facility]: MOCA 30/30, Cognivue 82, colonoscopy 04-15-2015 due in 7 years, mammo 27-19, BD 8-2-17 07-01-20 [facility]: MOCA 30/30, Cognivue 82, colonoscopy 04-15-2015 due in 7 years but pt wants in 5 years, mammo 27-19, BD 8-2-17 Unclassified (20 sources) Postmenopausal (Renamed from Postmenopausal status) Unclassified (20 sources) Immunity status testing Unclassified (20 sources) Well woman exam (Renamed from Encounter for well woman exam) Unclassified (20 sources) Hypertension, benign Unclassified (20 sources) Non-smoker; Translations: [Non-smoker] 07-01-2020 Unclassified (20 sources) Sleep disturbance Unclassified (20 sources) BMI 30.0-30.9,adult Unclassified (20 sources) Unclassified (20 sources) Stress reaction (Renamed from Acute reaction to stress) Unclassified (20 sources) Osteoarthritis, localized, knee Unclassified (1 source) BMI 32.0-32.9,adult Past or Other Problems Problem Classification Problem Date Documented Da te Episodic/Chronic Acute bronchitis (9 sources) Acute bronchitis; Translations: [Acute bronchitis, unspecified] Onset: 12-31-2010 Resolved: 01-30-2011 12-31-2010 Episodic Other bone disease and musculoskeletal deformities (14 sources) Pelvic somatic dysfunction; Translations: [Segmental and somatic dysfunction] Onset: 04-28-2017 04-28-2017 Episodic Unclassified (14 sources) Family history of colon cancer requiring screening colonoscopy Unclassified (8 sources) Screening for colon cancer Results Test Name Value Interpretation Reference Range Facility Miscellaneous Lab Procedureo n 05-28-2024 [facility] [place] [facility] [place] Normal [facility] Comment on above: Order Comment: [id number] HNK1 1 ACD 1 PUR PLE WB RT Result Comment: TEST RESULTS LIMITS HNK1 (CD57) Panel % CD8-/CD57+ Lymphs, 4.8 % 2.0-17.0 Abs.CD8-CD57+ Lymphs 101 /uL 60-360 WBC 5.8 x10E3/uL 3.4-10.8 RBC 4.23 x10E6/uL 3.77-5.28 Hemoglobin 13.1 g/dL 11.1-15.9 Hematocrit 40.8 % 34.0-46.6 MCV 97 fL 79-97 MCH 31.0 pg 26.6-33.0 MCHC 32.1 g/dL 31.5-35.7 RDW 12.4 % 11.7-15.4 Platelets 327 x10E3/uL 150-450 Neutrophils 58 % Not Estab. Lymphs 36 % Not Estab. Monocytes 5 % Not Estab. Eos 1 % Not Estab. Basos 0 % Not Estab. Neutrophils (Absolute) 3.3 x10E3/uL 1.4-7.0 Lymphs (Absolute) 2.1 x10E3/uL 0.7-3.1 Monocytes(Absolute) 0.3 x10E3/uL 0.1-0.9 Eos (Absolute) 0.1 x10E3/uL 0.0-0.4 Baso (Absolute) 0.0 x10E3/uL 0.0-0.2 Immature Granulocytes 0 % Not Estab. Immature Grans (Abs) 0.0 x10E3/uL 0.0-0.1 TESTING PERFORMED AT [facility]. ORIGINAL REPORT ON FILE IN LAB CONTAINS ADDITIONAL TEST SITE INFORMATION. Performed By: #### L 7000.2400, L501.9985, L500.4050, L500.4100, L506.0250, L3300.0960, L503.0105, L801.1541, L506.1000, L801.1543, L100.0100, L801.1545, L801.1547 #### [facility] [address] [place], [address] Miscellaneous Lab Procedure 205-28-2024 [facility] [place] [facility] [place] 2 Normal [facility] Comment on above: Order Comment: [id number] babesia ser/rt Result Comment: TEST RESULTS LIMITS Mycoplasma pneu. IgG/IgM Abs M pneumoniae IgG Abs <100 U/mL 0-99 Negative: <100 Indeterminate: 100 - 320 Positive: >320 The reference interval established is intended as a baseline only. Values >100 may indicate a recent infection with Mycoplasma pneumoniae and need to be confirmed either by a positive IgM result and/or an additional specimen drawn 2-4 weeks later showing a significant increase in antibody levels. M pneumoniae IgM Abs <770 U/mL 0-769 Negative <770 Clinically significant amount of M. pneumoniae antibody not detected. Low Positive 770 - 950 M. pneumoniae specific IgM presumptively detected. It is recommended that another sample be collected 1-2 weeks later to assure reactivity. Positive >950 Highly significant amount of M. pneumoniae specific IgM antibody detected. TESTING PERFORMED AT [facility]. ORIGINAL REPORT ON FILE IN LAB CONTAINS ADDITIONAL TEST SITE INFORMATION. Performed By: #### L 7000.2400, L501.9985, L500.4050, L500.4100, L506.0250, L3300.0960, L503.0105, L801.1541, L506.1000, L801.1543, L100.0100, L801.1545, L801.1547 #### [facility] [address] [place], [address] Miscellaneous Lab Procedure 3on 05-28-2024 [facility] [place] [facility] [place] 3 Normal [facility] Comment on above: Order Comment: [id number] [facility] [place] RBC LAB/RBC/ RT Result Comment: TEST RESULTS LIMITS Magnesium, RBC, 5.0 mg/dL 3.7-7.0 Plasma NOT from cells; may falsely decrease RBC Magnesium levels. TESTING PERFORMED AT [facility]. ORIGINAL REPORT ON FILE IN LAB CONTAINS ADDITIONAL TEST SITE INFORMATION. Performed By: #### L 7000.2400, L501.9985, L500.4050, L500.4100, L506.0250, L3300.0960, L503.0105, L801.1541, L506.1000, L801.1543, L100.0100, L801.1545, L801.1547 #### [facility] [address] [place], [address] Miscellaneous Lab Procedure 4on 05-28-2024 [facility] [place] [facility] [place] 4 Normal [facility] Comment on above: Order Comment: [id number] ZINC RBC ROYAL/R BC/RT Result Comment: TEST RESULTS LIMITS Zinc, RBC, 1320 ug/dL [phone] TESTING PERFORMED AT [facility]. ORIGINAL REPORT ON FILE IN LAB CONTAINS ADDITIONAL TEST SITE INFORMATION. Performed By: #### L 7000.2400, L501.9985, L500.4050, L500.4100, L506.0250, L3300.0960, L503.0105, L801.1541, L506.1000, L801.1543, L100.0100, L801.1545, L801.1547 #### [facility] [address] [place], [address] Vitamin D 1,25-Dihydroxyon 0 05-11-2024 VIT D 1,25 DIHY 36.2 pg/mL Normal 24.8-81.5 [facility] Comment on above: Result Comment: Performed at: [address] [id number] Supervisor Histology: Telly Rojas MD, Phone: [phone] Performed By: #### L 7000.2400, L501.9985, L500.4050, L500.4100, L506.0250, L3300.0960, L503.0105, L801.1541, L506.1000, L801.1543, L100.0100, L801.1545, L801.1547 #### [facility] [address] [facility] [place], [place], [id number] Mycoplasma Pneu IgG / IgMon 05-09-2024 M PNEUMONIA IgG 131 U/mL High 0-99 [facility] Comment on above: Result Comment: Negative: <100 Indeterminate: 100 - 320 Positive: >320 The reference interval established is intended as a baseline only. Values >100 may indicate a recent infection with Mycoplasma pneumoniae and need to be confirmed either by a positive IgM result and/or an additional specimen drawn 2-4 weeks later showing a significant increase in antibody levels. Performed By: #### L 7000.2400, L501.9985, L500.4050, L500.4100, L506.0250, L3300.0960, L503.0105, L801.1541, L506.1000, L801.1543, L100.0100, L801.1545, L801.1547 #### [facility] [address] [facility] [place], [address] M PNEUMONIA IgM < 770 Normal 0-769 [facility] Comment on above: Result Comment: Negative <770 Clinically significant amount of M. pneumoniae antibody not detected. Low Positive 770 - 950 M. pneumoniae specific IgM presumptively detected. It is recommended that another sample be collected 1-2 weeks later to assure reactivity. Positive >950 Highly significant amount of M. pneumoniae specific IgM antibody detected. Performed at: [address] [id number] Supervisor Histology: Davie Holliday PhD, Phone: [phone] Performed By: #### L 7000.2400, L501.9985, L500.4050, L500.4100, L506.0250, L3300.0960, L503.0105, L801.1541, L506.1000, L801.1543, L100.0100, L801.1545, L801.1547 #### [facility] [address] [facility] [place], [address] CBC W/Diff, Automatedon 07- Absolute Lymph 2.12 X10 3/uL Normal 0.83-4.51 [facility] Comment on above: Performed By: #### L7000.2400, L501.9985 , L500.4050, L500.4100, L506.0250, L3300.0960, L503.0105, L801.1541, L506.1000, L801.1543, L100.0100, L801.1545, L801.1547 #### [facility] [address] [place], [place], [id number] ([address] Absolute Neut 3.5 X10 3/uL Normal 2.0-7.7 [facility] Comment on above: Performed By: #### L7000.2400, L501.9985 , L500.4050, L500.4100, L506.0250, L3300.0960, L503.0105, L801.1541, L506.1000, L801.1543, L100.0100, L801.1545, L801.1547 #### [facility] [address] [facility] [place], [address] ([address] Basophils/100 WBC (Bld) 0.3 % Normal 0-1 [facility] Comment on above: Performed By: #### L7000.2400, L501.9985 , L500.4050, L500.4100, L506.0250, L3300.0960, L503.0105, L801.1541, L506.1000, L801.1543, L100.0100, L801.1545, L801.1547 #### [facility] [address] [place], [address] Eosinophils/100 WBC (Bld) 1.7 % Normal 0-5 [facility] Comment on above: Performed By: #### L7000.2400, L501.9985 , L500.4050, L500.4100, L506.0250, L3300.0960, L503.0105, L801.1541, L506.1000, L801.1543, L100.0100, L801.1545, L801.1547 #### [facility] [address] [place], [place], [id number] Erythrocyte distribution width (RBC) [Ratio] 12.2 % Normal 11.6-14.6 [facility] Comment on above: Performed By: #### L7000.2400, L501.9985 , L500.4050, L500.4100, L506.0250, L3300.0960, L503.0105, L801.1541, L506.1000, L801.1543, L100.0100, L801.1545, L801.1547 #### [facility] [address] [facility] [place], [address] Hematocrit (Bld) [Volume fraction] 39.3 % Normal 37-47 [facility] Comment on above: Performed By: #### L7000.2400, L501.9985 , L500.4050, L500.4100, L506.0250, L3300.0960, L503.0105, L801.1541, L506.1000, L801.1543, L100.0100, L801.1545, L801.1547 #### [facility] [address] [place], [address] Hemoglobin (Bld) [Mass/Vol] 12.8 g/dL Normal 12.0-15.0 [facility] Comment on above: Performed By: #### L7000.2400, L501.9985 , L500.4050, L500.4100, L506.0250, L3300.0960, L503.0105, L801.1541, L506.1000, L801.1543, L100.0100, L801.1545, L801.1547 #### [facility] [address] [place], [address] IG% 0.300 Normal 0.0-0.9 [facility] Comment on above: Result Comment: IG% - Immature Granulocy ash (promyelocytes, myelocytes and metamyelocytes) > 1% indicates that a LEFT SHIFT is Present. Performed By: #### L 7000.2400, L501.9985, L500.4050, L500.4100, L506.0250, L3300.0960, L503.0105, L801.1541, L506.1000, L801.1543, L100.0100, L801.1545, L801.1547 #### [facility] [address] [place], [address] Lymphocytes/100 WBC (Bld) 35.3 % Normal 19-41 [facility] Comment on above: Performed By: #### L7000.2400, L501.9985 , L500.4050, L500.4100, L506.0250, L3300.0960, L503.0105, L801.1541, L506.1000, L801.1543, L100.0100, L801.1545, L801.1547 #### [facility] [address] [place], [address] MCH (RBC) [Entitic mass] 30.7 pg Normal 27.0-32.0 [facility] Comment on above: Performed By: #### L7000.2400, L501.9985 , L500.4050, L500.4100, L506.0250, L3300.0960, L503.0105, L801.1541, L506.1000, L801.1543, L100.0100, L801.1545, L801.1547 #### [facility] [address] [place], [address] MCHC (RBC) [Mass/Vol] 32.6 g/dL Normal 32-36 [facility] Comment on above: Performed By: #### L7000.2400, L501.9985 , L500.4050, L500.4100, L506.0250, L3300.0960, L503.0105, L801.1541, L506.1000, L801.1543, L100.0100, L801.1545, L801.1547 #### [facility] [address] [place], [address] MCV (RBC) [Entitic vol] 94.2 fL Normal 81-99 [facility] Comment on above: Performed By: #### L7000.2400, L501.9985 , L500.4050, L500.4100, L506.0250, L3300.0960, L503.0105, L801.1541, L506.1000, L801.1543, L100.0100, L801.1545, L801.1547 #### [facility] [address] [place], [address] Monocytes/100 WBC (Bld) 4.7 % Normal 0-10 [facility] Comment on above: Performed By: #### L7000.2400, L501.9985 , L500.4050, L500.4100, L506.0250, L3300.0960, L503.0105, L801.1541, L506.1000, L801.1543, L100.0100, L801.1545, L801.1547 #### [facility] [address] [place], [address] Neutrophils/100 WBC (Bld) 57.7 % Normal 47-70 [facility] Comment on above: Performed By: #### L7000.2400, L501.9985 , L500.4050, L500.4100, L506.0250, L3300.0960, L503.0105, L801.1541, L506.1000, L801.1543, L100.0100, L801.1545, L801.1547 #### [facility] [address] [place], [place], [id number] (7[address] Nucleated RBC (Bld) [#/Vol] 0 10*3/uL Normal 0-5 [facility] Comment on above: Performed By: #### L7000.2400, L501.9985 , L500.4050, L500.4100, L506.0250, L3300.0960, L503.0105, L801.1541, L506.1000, L801.1543, L100.0100, L801.1545, L801.1547 #### [facility] [address] [place], [address] Platelet mean volume (Bld) [Entitic vol] 9.8 fL Normal 6.2-12.0 [facility] Comment on above: Performed By: #### L7000.2400, L501.9985 , L500.4050, L500.4100, L506.0250, L3300.0960, L503.0105, L801.1541, L506.1000, L801.1543, L100.0100, L801.1545, L801.1547 #### [facility] [address] [place], [address] Platelets (Bld) [#/Vol] 330 10*3/uL Normal 150-450 [facility] Comment on above: Performed By: #### L7000.2400, L501.9985 , L500.4050, L500.4100, L506.0250, L3300.0960, L503.0105, L801.1541, L506.1000, L801.1543, L100.0100, L801.1545, L801.1547 #### [facility] [facility] [address] [place], [place], [id number] RBC (Bld) [#/Vol] 4.17 10*6/uL Low 4.2-5.4 [facility] Comment on above: Performed By: #### L7000.2400, L501.9985 , L500.4050, L500.4100, L506.0250, L3300.0960, L503.0105, L801.1541, L506.1000, L801.1543, L100.0100, L801.1545, L801.1547 #### [facility] [address] [place], [address] RDW SD 42.0 fl Normal 35.1-43.9 [facility] Comment on above: Performed By: #### L7000.2400, L501.9985 , L500.4050, L500.4100, L506.0250, L3300.0960, L503.0105, L801.1541, L506.1000, L801.1543, L100.0100, L801.1545, L801.1547 #### [facility] [address] [place], [address] WBC (Bld) [#/Vol] 6.0 10*3/uL Normal 4.4-11.0 [facility] Comment on above: Performed By: #### L7000.2400, L501.9985 , L500.4050, L500.4100, L506.0250, L3300.0960, L503.0105, L801.1541, L506.1000, L801.1543, L100.0100, L801.1545, L801.1547 #### [facility] [address] [place], [address] Comprehensive Metabolic Prof ilon 05-07-2024 Albumin [Mass/Vol] 3.8 g/dL Normal 3.2-5.0 [facility] Comment on above: Order Comment: N Performed By: #### L 7000.2400, L501.9985, L500.4050, L500.4100, L506.0250, L3300.0960, L503.0105, L801.1541, L506.1000, L801.1543, L100.0100, L801.1545, L801.1547 #### [facility] [address] [place], [address] Albumin/Globulin [Mass ratio] 1.0 {ratio} Normal 0.9-2.4 [facility] Comment on above: Order Comment: N Performed By: #### L 7000.2400, L501.9985, L500.4050, L500.4100, L506.0250, L3300.0960, L503.0105, L801.1541, L506.1000, L801.1543, L100.0100, L801.1545, L801.1547 #### [facility] [address] [place], [address] ALK P 24 U/L Low 45-117 [facility] Comment on above: Order Comment: N Performed By: #### L 7000.2400, L501.9985, L500.4050, L500.4100, L506.0250, L3300.0960, L503.0105, L801.1541, L506.1000, L801.1543, L100.0100, L801.1545, L801.1547 #### [facility] [address] [place], [address] ALT [Catalytic activity/Vol] 24 U/L Normal 13-56 [facility] Comment on above: Order Comment: N Performed By: #### L 7000.2400, L501.9985, L500.4050, L500.4100, L506.0250, L3300.0960, L503.0105, L801.1541, L506.1000, L801.1543, L100.0100, L801.1545, L801.1547 #### [facility] [address] [place], [address] AST [Catalytic activity/Vol] 22 U/L Normal 15-37 [facility] Comment on above: Order Comment: N Performed By: #### L 7000.2400, L501.9985, L500.4050, L500.4100, L506.0250, L3300.0960, L503.0105, L801.1541, L506.1000, L801.1543, L100.0100, L801.1545, L801.1547 #### [facility] [address] [place], [address] Bilirubin [Mass/Vol] 0.30 mg/dL Normal 0.20-1.00 [facility] Comment on above: Order Comment: N Result Comment: For patients on eltrombopag therapy, use of Dimension [place] TBIL is not recommended. Performed By: #### L 7000.2400, L501.9985, L500.4050, L500.4100, L506.0250, L3300.0960, L503.0105, L801.1541, L506.1000, L801.1543, L100.0100, L801.1545, L801.1547 #### [facility] [address] [place], [address] BUN/CRE 21.1 RATIO High 10-20 [facility] Comment on above: Order Comment: N Performed By: #### L 7000.2400, L501.9985, L500.4050, L500.4100, L506.0250, L3300.0960, L503.0105, L801.1541, L506.1000, L801.1543, L100.0100, L801.1545, L801.1547 #### [facility] [address] [place], [place], [id number] CA,Total 9.7 mg/dL Normal 8.5-10.1 [facility] Comment on above: Order Comment: N Performed By: #### L 7000.2400, L501.9985, L500.4050, L500.4100, L506.0250, L3300.0960, L503.0105, L801.1541, L506.1000, L801.1543, L100.0100, L801.1545, L801.1547 #### [facility] [address] [place], [address] (868) Chloride [Moles/Vol] 107 mmol/L Normal 98-107 [facility] Comment on above: Order Comment: N Performed By: #### L 7000.2400, L501.9985, L500.4050, L500.4100, L506.0250, L3300.0960, L503.0105, L801.1541, L506.1000, L801.1543, L100.0100, L801.1545, L801.1547 #### [facility] [address] [place], [place], [id number] CO2 [Moles/Vol] 25.0 mmol/L Normal 21.0-32.0 [facility] Comment on above: Order Comment: N Performed By: #### L 7000.2400, L501.9985, L500.4050, L500.4100, L506.0250, L3300.0960, L503.0105, L801.1541, L506.1000, L801.1543, L100.0100, L801.1545, L801.1547 #### [facility] [address] [place], [address] Creatinine [Mass/Vol] 0.95 mg/dL Normal 0.55-1.02 [facility] Comment on above: Order Comment: N Result Comment: The validity of the calculated GFR GFRAA in patients over 70 years has not been determined. Clinical correlation is essential. Performed By: #### L 7000.2400, L501.9985, L500.4050, L500.4100, L506.0250, L3300.0960, L503.0105, L801.1541, L506.1000, L801.1543, L100.0100, L801.1545, L801.1547 #### [facility] [address] [place], [place], [id number] EST GFR - AA 74 mL/min Normal >60 [facility] Comment on above: Order Comment: N Result Comment: Afri can Vietnamese GFR Calc Performed By: #### L 7000.2400, L501.9985, L500.4050, L500.4100, L506.0250, L3300.0960, L503.0105, L801.1541, L506.1000, L801.1543, L100.0100, L801.1545, L801.1547 #### [facility] [address] [place], [address] GAP 6 Normal 5-15 [facility] Comment on above: Order Comment: N Performed By: #### L 7000.2400, L501.9985, L500.4050, L500.4100, L506.0250, L3300.0960, L503.0105, L801.1541, L506.1000, L801.1543, L100.0100, L801.1545, L801.1547 #### [facility] [address] [place], [address] GFR/1.73 sq M.predicted among non-blacks MDRD (S/P/Bld) [Vol rate/Area] 62 mL/min/{1.73_m2} Normal >60 [facility] Comment on above: Order Comment: N Result Comment: Non- GFR Calc Performed By: #### L 7000.2400, L501.9985, L500.4050, L500.4100, L506.0250, L3300.0960, L503.0105, L801.1541, L506.1000, L801.1543, L100.0100, L801.1545, L801.1547 #### [facility] [address] [place], [address] Globulin (S) [Mass/Vol] 3.9 g/dL Normal 2.2-4.2 [facility] Comment on above: Order Comment: N Performed By: #### L 7000.2400, L501.9985, L500.4050, L500.4100, L506.0250, L3300.0960, L503.0105, L801.1541, L506.1000, L801.1543, L100.0100, L801.1545, L801.1547 #### [facility] [address] [place], [address] Glucose [Mass/Vol] 88 mg/dL Normal 74-106 [facility] Comment on above: Order Comment: N Performed By: #### L 7000.2400, L501.9985, L500.4050, L500.4100, L506.0250, L3300.0960, L503.0105, L801.1541, L506.1000, L801.1543, L100.0100, L801.1545, L801.1547 #### [facility] [address] [place], [address] Potassium [Moles/Vol] 4.1 mmol/L Normal 3.5-5.1 [facility] Comment on above: Order Comment: N Performed By: #### L 7000.2400, L501.9985, L500.4050, L500.4100, L506.0250, L3300.0960, L503.0105, L801.1541, L506.1000, L801.1543, L100.0100, L801.1545, L801.1547 #### [facility] [address] [place], [place], [id number] Sodium [Moles/Vol] 138 mmol/L Normal 136-145 [facility] Comment on above: Order Comment: N Performed By: #### L 7000.2400, L501.9985, L500.4050, L500.4100, L506.0250, L3300.0960, L503.0105, L801.1541, L506.1000, L801.1543, L100.0100, L801.1545, L801.1547 #### [facility] [address] [place], [address] T PROT 7.7 g/dL Normal 6.4-8.2 [facility] Comment on above: Order Comment: N Performed By: #### L 7000.2400, L501.9985, L500.4050, L500.4100, L506.0250, L3300.0960, L503.0105, L801.1541, L506.1000, L801.1543, L100.0100, L801.1545, L801.1547 #### [facility] [address] [place], [address] Urea nitrogen [Mass/Vol] 20 mg/dL High 7-18 [facility] Comment on above: Order Comment: N Performed By: #### L 7000.2400, L501.9985, L500.4050, L500.4100, L506.0250, L3300.0960, L503.0105, L801.1541, L506.1000, L801.1543, L100.0100, L801.1545, L801.1547 #### [facility] [address] [place], [address] Folates, (Folic Acid)on FOLATES 21.50 ng/mL Normal 3.1-55.4 [facility] Comment on above: Order Comment: N Performed By: #### L 7000.2400, L501.9985, L500.4050, L500.4100, L506.0250, L3300.0960, L503.0105, L801.1541, L506.1000, L801.1543, L100.0100, L801.1545, L801.1547 #### [facility] [address] [place], [address] Hemoglobin A1con 05-07-2024 HbA1c (Bld) [Mass fraction] 5.4 % Normal 3.8-5.6 [facility] Comment on above: Result Comment: Normal < 5.7 % Prediabetic 5.7 - 6.4 % Diabetic >or= 6.5 % Please note range changes. Performed By: #### L 7000.2400, L501.9985, L500.4050, L500.4100, L506.0250, L3300.0960, L503.0105, L801.1541, L506.1000, L801.1543, L100.0100, L801.1545, L801.1547 #### [facility] [address] [place], [address] Lipid Profileon 05-07-2024 Cholesterol [Mass/Vol] 274 mg/dL High 200 [facility] Comment on above: Order Comment: N Result Comment: <200 mg/dL Desirable 200-240 mg/dL Borderline >240 mg/dL High Risk Performed By: #### L 7000.2400, L501.9985, L500.4050, L500.4100, L506.0250, L3300.0960, L503.0105, L801.1541, L506.1000, L801.1543, L100.0100, L801.1545, L801.1547 #### [facility] [address] [place], [address] Cholesterol in HDL [Mass/Vol] 55 mg/dL Normal [facility] Comment on above: Order Comment: N Result Comment: The drugs N-Acetylcysteine and Metamizole may falsely depress this assay. Reference Range HDL <40 mg/dL Low HDL Cholesterol HDL >or= 60 mg/dL High HDL Cholesterol Performed By: #### L 7000.2400, L501.9985, L500.4050, L500.4100, L506.0250, L3300.0960, L503.0105, L801.1541, L506.1000, L801.1543, L100.0100, L801.1545, L801.1547 #### [facility] [address] [facility] [address] [place], [place], [id number] ([address] Cholesterol in LDL [Mass/Vol] 162 mg/dL High 0-130 [facility] Comment on above: Order Comment: N Performed By: #### L 7000.2400, L501.9985, L500.4050, L500.4100, L506.0250, L3300.0960, L503.0105, L801.1541, L506.1000, L801.1543, L100.0100, L801.1545, L801.1547 #### [facility] [address] [place], [address] Cholesterol in VLDL [Mass/Vol] 57 mg/dL High 5-40 [facility] Comment on above: Order Comment: N Performed By: #### L 7000.2400, L501.9985, L500.4050, L500.4100, L506.0250, L3300.0960, L503.0105, L801.1541, L506.1000, L801.1543, L100.0100, L801.1545, L801.1547 #### [facility] [address] [place], [place], [id number] Triglyceride [Mass/Vol] 286 mg/dL High [facility] Comment on above: Order Comment: N Result Comment: The drugs N-Acetylcysteine and Metamizole may falsely depress this assay. Serum Triglycerides Reference Interval Normal <150 mg/dL Borderline high 150 - 199 mg/dL High 200 - 499 mg/dL Very High > or = 500 mg/dL Performed By: #### L 7000.2400, L501.9985, L500.4050, L500.4100, L506.0250, L3300.0960, L503.0105, L801.1541, L506.1000, L801.1543, L100.0100, L801.1545, L801.1547 #### [facility] [address] [place], [place], [id number] Vitamin B12on 05-07-2024 Cobalamin (Vitamin B12) [Mass/Vol] 416 pg/mL Normal 211-911 [facility] Comment on above: Performed By: #### L7000.2400, L501.9985 , L500.4050, L500.4100, L506.0250, L3300.0960, L503.0105, L801.1541, L506.1000, L801.1543, L100.0100, L801.1545, L801.1547 #### [facility] [address] [place], [place], [id number] Vitamin D,25 Hydroxyon 05-07 Vitamin D 25-OH 37.2 ng/mL Normal [facility] Comment on above: Result Comment: Vitamin D 25(OH) Status Range Deficiency <20 ng/mL (50nmol/L) Insufficiency 20 - 30 ng/mL (50 - 75 nmol/L) Sufficiency 30 - 100 ng/mL (75 - 250 nmol/L) Toxicity >100 ng/mL (>250 nmol/L) Performed By: #### L 7000.2400, L501.9985, L500.4050, L500.4100, L506.0250, L3300.0960, L503.0105, L801.1541, L506.1000, L801.1543, L100.0100, L801.1545, L801.1547 #### [facility] [address] [place], [address] Folate (60212)Ordered By: stem Lobby Concierge on 06-16-2020 Folate [Mass/Vol] 11.5 ng/mL Normal [facility] Work Phone: Comment on above: A serum folate concentration of less jorge n 3.1 ng/mL isconsidered to represent clinical deficiency. PATIENT WAS FASTINGP ERFORMED BY: [address] [id number] BY: NITHYA [place] [id number] [facility] [id number] Methymalonic Acid, Serum (83 931)Ordered By: [employer] on 06-16-2020 Methylmalonate [Moles/Vol] 270 nmol/L Normal 0-378 [facility] Work Phone: Comment on above: PATIENT WAS FASTINGPERFORMED BY: [address] [id number] BY: [facility]6[address] [facility] [id number] Information: NURSE DRAW Methymalonic Acid, Serum (71630) [facility] Normal [facility] Work Phone: Comment on above: This test was developed and its performa nce characteristicsdetermined by [employer]. It has not been cleared or approvedby the Food and Drug Administration. PATIENT WAS FASTINGP ERFORMED BY: [address] [id number] BY: [facility]6[address] [facility] [id number] Information: NURSE DRAW SARS-CoV-2 Antibody, IgGOrde red By: [employer] on 06-16-2020 SARS-CoV-2 Antibody, IgG METH3 Normal [facility] Work Phone: Comment on above: See [employer] SARS-CoV-2 Ab, IgG Test(s) [id number]-[id number]- CoV-2 Antibody, IgG; [id number]-KyqYvfqa SARS-CoV-2 Ab, IgGhas not been FDA cleared or approved. This test hasbeen authorized by FDA under an Emergency Use Authorization(EUA). This test is only authorized for the duration of thedeclaration that circumstances exist justifying the authorizationof emergency use of in vitro diagnostics for detection and/ordiagnosis of COVID-19 under Section 564(b)(1) of the Act, 21U.S.C. 360bbb-3(b)(1), unless the authorization is terminated orrevoked sooner. This test has been authorized only for detectingthe presence of antibodies against SARS-CoV-2, not for any otherviruses or pathogens.PATIENT WAS FASTINGPERFORMED BY: NITHYA [facility]cisimpleSaint [facility] DoverDyqere5087 [facility] [id number] Information: NURSE DRAW Vitamin B-12 (cyanocobalamin ) (12755)Ordered By: [employer] on 06-16-2020 Cobalamin (Vitamin B12) [Mass/Vol] 371 pg/mL Normal 232-1245 [facility] Work Phone: Comment on above: PATIENT WAS FASTINGPERFORMED BY: [address] [id number] BY: LabCoSaint [facility] at DoverGrborz9005 [facility] [id number]; OV 07/01 Office Visit: Spine Visit- L ow back painon 05-24-2017 Documentation of current medications (procedure) Done Invalid Interpretation Code [facility] Work Phone: Documentation of current medications (procedure) T Invalid Interpretation Code [facility] Work Phone: Protein mass conc Done [facility] Work Phone: Protein mass conc T [facility] Work Phone: Office Visit: Spine Visit- L ow back painon 05-16-2017 Documentation of current medications (procedure) Done Invalid Interpretation Code [facility] Work Phone: Documentation of current medications (procedure) T Invalid Interpretation Code [facility] Work Phone: Office Visit: Spine Visit- L ow back painon 05-12-2017 Protein mass conc Done [facility] Work Phone: Protein mass conc T [facility] Work Phone: Office Visit: Spine Visit- L ow back painon 05-09-2017 Documentation of current medications (procedure) Done Invalid Interpretation Code [facility] Work Phone: Documentation of current medications (procedure) T Invalid Interpretation Code [facility] Work Phone: Protein mass conc Done [facility] Work Phone: Protein mass conc T [facility] Work Phone: Office Visit: Spine Visit- N EWon 04-28-2017 Protein mass conc Done [facility] Work Phone: Protein mass conc T [facility] Work Phone: Tobacco smoking status NHIS Current every day smoker [facility] Work Phone: Tobacco use CPHS Current every day smoker Invali d Interpretation Code [facility] Work Phone: Vital Signs Date Time Vital Sign Value Performing Clinician Facility 06-01-2021 12:41-0400 Body height 153.67 cm BREE Farrell LPN [facility]; [facility] Work Phone: 06-01-2021 12:41-0400 Body mass index (BMI) [Ratio] 31.5 kg/m2 BREE Farrell LPN [facility]; [facility] Work Phone: 06-01-2021 12:41-0400 Body surface area Derived from formula 1.73 m2 BREE Farrell LPN [facility]; [facility] Work Phone: 06-01-2021 12:41-0400 Body temperature 97.9 [degF] BREE Farrell LPN [facility]; [facility] Work Phone: Comment on above: Method: Temporal 06-01-2021 12:41-0400 Body weight 74.39 kg BREE Farrell LPN [facility]; [facility] Work Phone: 06-01-2021 12:41-0400 Diastolic blood pressure 76 mm[Hg] BREE Farrell LPN [facility]; [facility] Work Phone: Comment on above: Patient Position: Sitting; Cuff Location : Left Arm; Cuff Size: Standard 06-01-2021 12:41-0400 Heart rate 78 /min BREE Farrell LPN [facility]; [facility] Work Phone: Comment on above: Pattern: Regular 06-01-2021 12:41-0400 Respiratory rate 20 /min BREE Farrell LPN [facility]; [facility] Work Phone: Comment on above: Pattern: Unlabored 06-01-2021 12:41-0400 SaO2% (BldA) [Mass fraction] 98 % BREE Farrell LPN [facility]; [facility] Work Phone: Comment on above: Room air 06-01-2021 12:41-0400 Systolic blood pressure 124 mm[Hg] BREE Farrell LPN [facility]; [facility] Work Phone: Comment on above: Patient Position: Sitting; Cuff Location : Left Arm; Cuff Size: Standard 09-30-2020 09:44-0500 BMI (Body Mass Index) 30.16 kg/m2 BREE Farrell LPN [facility] Work Phone: 09-30-2020 09:44-0500 Body Temperature 97.8 [degF] BREE Farrell LPN [facility] Work Phone: Comment on above: Method: Temporal 09-30-2020 09:44-0500 Body weight 71.22 kg BREE Farrell LPN [facility] Work Phone: 09-30-2020 09:44-0500 BP Diastolic 70 mm[Hg] BREE Farrell LPN [facility] Work Phone: Comment on above: Patient Position: Sitting; Cuff Location : Left Arm; Cuff Size: Standard 09-30-2020 09:44-0500 BP Systolic 114 mm[Hg] BREE Farrell LPN [facility] Work Phone: Comment on above: Patient Position: Sitting; Cuff Location : Left Arm; Cuff Size: Standard 09-30-2020 09:44-0500 BSA (Body Surface Area) 1.69 m2 BREE Farrell CATHERINE [facility] Work Phone: 09-30-2020 09:44-0500 Height 153.67 cm BREE Farrell ASE CERTIFIED TECHNICIAN [facility] Work Phone: 09-30-2020 09:44-0500 Pulse (Heart Rate) 76 /min BREE Farrell LPN [facility] Work Phone: Comment on above: Pattern: Regular 09-30-2020 09:44-0500 Pulse Oximetry 98 % [facility] Work Phone: Comment on above: Room air 09-30-2020 09:44-0500 Respiratory Rate 18 /min BREE Farrell LPN [facility] Work Phone: Comment on above: Pattern: Unlabored 09-30-2020 09:44-0500 SaO2% (BldA) [Mass fraction] 98 % BREE Farrell CATHERINE [facility]; [facility] Work Phone: Comment on above: Room air 07-01-2020 06:55-0400 BMI (Body Mass Index) 29.86 kg/m2 [facility] Work Phone: 07-01-2020 06:55-0400 Body Temperature 97 [degF] [facility] Work [facility]: Comment on above: Method: Thermal Scan 07-01-2020 06:55-0400 Body weight 71.[address] [facility] Work Phone: 07-01-2020 06:55-0400 BP Diastolic 72 mm[Hg] Mona Bonezzi [facility] Work Phone: Comment on above: Patient Position: Sitting; Cuff Location : Left Arm; Cuff Size: Standard 07-01-2020 06:55-0400 BP Systolic 122 mm[Hg] Mona Diaz [facility] Work Phone: Comment on above: Patient Position: Sitting; Cuff Location : Left Arm; Cuff Size: Standard 07-01-2020 06:55-0400 BSA (Body Surface Area) 1.7 m2 Mona Diaz [facility] Work Phone: 07-01-2020 06:55-0400 Height 154.43 cm Mona Diaz [facility] Work Phone: 07-01-2020 06:55-0400 Pulse (Heart Rate) 70 /min Mona Diaz [facility] Work Phone: Comment on above: Pattern: Regular 07-01-2020 06:55-0400 Pulse Oximetry 98 % Mona Diaz [facility] Work Phone: Comment on above: Room air 07-01-2020 06:55-0400 Respiratory Rate 16 /min Mona Diaz [facility] Work Phone: Comment on above: Pattern: Unlabored 07-01-2020 06:55-0400 SaO2% (BldA) [Mass fraction] 98 % Mona Diaz MD Work Phone: [facility]; [facility] Work Phone: Comment on above: Room air 04-28-2017 15:30-0400 BMI (Body Mass Index) 29.44 kg/m2 Crystal Dossi DC [facility] Work Phone: 04-28-2017 15:30-0400 Height 157.48 cm Crystal Dossi DC [facility] Work Phone: 04-28-2017 15:30-0400 Pulse (Heart Rate) 79 /min Crystal Dossi DC [facility] Work Phone: 04-28-2017 15:30-0400 Respiratory Rate 16 /min Crystal Dossi DC [facility] Work Phone: 04-28-2017 15:30-0400 Weight 73.03 kg Crystal Retana DC [facility] Work Phone: 12-31-2010 10:21-0500 Body Temperature 98.4 [degF] Crystal Retana DC [facility] Work Phone: 12-31-2010 10:21-0500 BP Diastolic 60 mm[Hg] Crystal Retana DC [facility] Work Phone: 12-31-2010 10:21-0500 BP Systolic 105 mm[Hg] Crystal Retana DC [facility] Work Phone: 12-31-2010 10:21-0500 Pulse Oximetry 97 % Crystal Retana DC [facility] Work Phone: Encounters Encounter Date Encounter Type Care Provider Facility Start: 07-22-2025 ambulatory Vilma milner F[employer] C[employer] THERAPIST Facility:[facility] Start: 05-07-2024 End: 05-07-2024 ambulatory Vilma Giron F[employer]ER CARE THERAPIST Facility:[facility] Start: 02-22-2024 Non-patient / Non-visit F[employer]ER CARE THERAPIST-Neida Giron NP [facility] Start: 02-22-2024 End: 02-22-2024 ambulatory FOSTER CARE THERAPIST-Neida Giron NP [facility] Work Phone: Start: 02-22-2024 End: 02-22-2024 Patient encounter procedure FOSTER CARE THERAPIST-Neida Giron NP [facility]-Pulmonary Services/Neurology Work Phone: Start: 05-05-2022 ambulatory Corie Nash Work Phone: Internal Medicine [facility] [place] Start: 08-25-2021 End: 09-02-2021 Office outpatient visit 25 minutes oMna Diaz MD Work Phone: [facility] Start: 07-14-2021 End: 07-14-2021 Office outpatient visit 25 minutes Mona Diaz MD Work Phone: [facility] Start: 06-01-2021 End: 06-01-2021 Office outpatient visit 5 minutes Mona Diaz MD Work Phone: [facility] Start: 2020 End: 2020 Admission to establishment Mona Diaz [facility] Start: 11-10-2020 End: 11-10-2020 Phone Encounter Mona Diaz [facility] Start: 09-30-2020 End: 09-30-2020 Phone Encounter Mona Diaz [facility] Start: 09-30-2020 Review Mona Diaz [facility] Start: 09-30-2020 End: 09-30-2020 Office outpatient visit 15 minutes Mona Diaz [facility] Start: 07-07-2020 End: 07-07-2020 Office outpatient visit 25 minutes Mona Diaz [facility] Start: 07-01-2020 End: 07-04-2020 Office outpatient visit 15 minutes Mona Diaz [facility] Start: 07-01-2020 Review Mona Diaz [facility] Start: 06-16-2020 End: 06-09-2020 Lab Order Mona Diaz [facility] Start: 06-03-2020 End: 06-03-2020 Periodic preventive med est patient 18-39 yrs Mona Diaz [facility] Patient encounter procedure Mona Diaz MD Work Phone: [facility]; [facility] Work Phone: Comment on above: 07-01-20 SHERRI physic al: MOCA 30/30, Cognivue 82, colonoscopy 04-15-2015 due in 7 years but pt wants in 5 years, mammo 08-03-19, BD 8-2-17 Patient encounter procedure Mona Diaz MD Work Phone: [facility]; [facility] Work Phone: Comment on above: 07-01-20 SHERRI physic al: MOCA 30/30, Cognivue 82, colonoscopy 04-15-2015 due in 7 years but pt wants in 5 years, mammo 08-03-19, BD 8-2-17 End: 04-03-2021 Patient encounter status BREE Farrell CATHERINE [facility]; [facility] Work Phone: Patient encounter status Mona Diaz MD Work Phone: [facility]; [facility] Work Phone: Procedures Date Procedure Procedure Detail Performing Clinician Start: 07-19-2021 End: 07-20-2021 Emergency Department Summary Comments: See Note; NOTES: [facility] Medical Records Department [address] [place] [address] Emergency Department Summary 07/19/21 MR#: [id number] Acct: [id number] Name: ELVI ANGEL Rep #: [id number] : 1950 70 From: Travon Mortensen DO PCP: Dr. Mona Diaz MD Status:REG ER Location: ED HPI History of Present Illness Chief Complaint: Weakness Narrative Narrative: Patient is a 70-year-old female from home with no past medical history of lung disorder need for supplemental oxygen. She began having congestion fatigue and cough approximately 10 to 12 days ago. She consulted her family doctor and had a Covid swab obtained. It took approximately 4 to 5 days to return and did come back positive. The family doctor was trying to contact the patient but no one would answer the phone and therefore she sent a nurse to the patient's house. Nurse reports that upon arrival the patient's room air pulse ox was 80% and patient had increased work of breathing. The patient has no need for supplemental oxygen and with her worsening symptoms and hypoxia was sent to the ER for evaluation by EMS. [facility] Home Medications multivitamin with minerals [Multi-Daily W/Minerals] 1 tab PO DAILY 07/19/21 [History Last Taken Unknown] Allergy/AdvReac Type Severity Reaction Status Date / Time No Known Allergies Allergy Unverified 07/19/21 06:08 Surgical History History of right hip replacement Social History (Updated 05/26/20 @ 13:[address] Crystal Retana, MIKE) Smoking Status: Never smoker alcohol intake: never substance use type: does not use what type of physical activity do you participate in: none ROS ROS ED Constitutional Constitutional ED: Reports chills and fever(s) Eyes Eyes: Denies change in vision ENT ENT ED: Reports rhinorrhea; Denies sore throat Cardiovascular Cardiovascular: Denies chest pain Respiratory/Chest Respiratory/Chest: Reports cough and dyspnea Gastrointestinal Gastrointestinal: Denies abdominal pain, diarrhea, nausea or vomiting Genitourinary Genitourinary ED: Denies dysuria Musculoskeletal Musculoskeletal: Reports myalgias Integumentary Denies rash Neurologic Neurologic: Denies headache(s) Hematologic/Lymphatic Hematologic/Lymphatic: Denies easy bleeding or easy bruising EXAM Physical Exam Const Vital Signs: 07/19/21 06:05 07/19/21 06:10 Temperature 99.5 F H 99.5 F H Temperature Source Oral Oral Pulse Rate 84 84 Respiratory Rate 20 H 20 H Respiratory Effort Normal Non-Labored Blood Pressure 127/100 H 127/100 H Blood Pressure Mean 109 109 Pulse Ox 89 89 Oxygen Delivery Method Room Air Room Air Positive well nourished and well developed General Appearance ED: well developed HEENT Reports moist mucous membranes HEENT Narrative: No tongue or lip swelling no oral lesions no airway edema or compromise. There is cobblestoning the posterior pharynx consistent with sinus drainage Eyes PERRL and EOMs intact bilaterally Neck supple Neck Narrative: Positive anterior cervical lymphadenopathy noted Chest Wall Chest Narrative: Reproducible anterior chest wall pain with palpation diffusely but no bony deformity or crepitance Resp Resp Narrative: Patient has mild tachypnea and accessory muscle use with diminished breath sounds and diffuse expiratory wheezes. Cardio regular rate and regular rhythm GI normal to inspection, nondistended, normoactive bowel sounds, non-tender and non-distended Auscultation: normoactive bowel sounds Palpation: soft Extremity normal to inspection Neuro oriented x3 and CN's II-XII intact bilaterally Sensorium / Orientation: alert Motor Exam: strength 5/5 throughout Psych mental status grossly normal Skin no rashes or lesions noted MDM MDM MDM Narrative Medical decision making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 Start:01-Jul-2020 Instruction Type:Provider Instructions for Treatment Name Dates Details How to access health informa tion online Indication:Osteopenia Start:30-Sep-2020 Instruction Type:Patient Education How to access health informa tion online - Detail Indication:Osteopenia Start:30-Sep-2020 Instruction Type:Patient Education Patient Instructions Indication:Osteopenia Start:30-Sep-2020 Instruction Type:Provider Instructions for Treatment How to access health informa tion online Indication:Well woman exam (Renamed from Encounter for well woman exam) Start:01-Jul-2020 Instruction Type:Patient Education How to access health informa tion online - Detail Indication:Well woman exam (Renamed from Encounter for well woman exam) Start:01-Jul-2020 Instruction Type:Patient Education Patient Instructions Indication:Well woman exam (Renamed from Encounter for well woman exam) Start:01-Jul-2020 Instruction Type:Provider Instructions for Treatment Name Dates Details How to access health informa tion online Indication:Osteopenia Start:30-Sep-2020 Instruction Type:Patient Education How to access health informa tion online - Detail Indication:Osteopenia Start:30-Sep-2020 Instruction Type:Patient Education Patient Instructions Indication:Osteopenia Start:30-Sep-2020 Instruction Type:Provider Instructions for Treatment How to access health informa tion online Indication:Well woman exam (Renamed from Encounter for well woman exam) Start:01-Jul-2020 Instruction Type:Patient Education How to access health informa tion online - Detail Indication:Well woman exam (Renamed from Encounter for well woman exam) Start:01-Jul-2020 Instruction Type:Patient Education Patient Instructions Indication:Well woman exam (Renamed from Encounter for well woman exam) Start:01-Jul-2020 Instruction Type:Provider Instructions for Treatment Name Dates Details How to access health informa tion online Indication:Osteopenia Start:30-Sep-2020 Instruction Type:Patient Education How to access health informa tion online - Detail Indication:Osteopenia Start:30-Sep-2020 Instruction Type:Patient Education Patient Instructions Indication:Osteopenia Start:30-Sep-2020 Instruction Type:Provider Instructions for Treatment How to access health informa tion online Indication:Well woman exam (Renamed from Encounter for well woman exam) Start:01-Jul-2020 Instruction Type:Patient Education How to access health informa tion online - Detail Indication:Well woman exam (Renamed from Encounter for well woman exam) Start:01-Jul-2020 Instruction Type:Patient Education Patient Instructions Indication:Well woman exam (Renamed from Encounter for well woman exam) Start:01-Jul-2020 Instruction Type:Provider Instructions for Treatment Family History No Family History Records FoundUnknown Family Member Name Dates Details Brother 1 Comments:colon polyps Status:Active Daughter 1 Status:Active Daughter 2 Comments:not talk to her any more Status:Active Father Comments:lung cancer abestos is and smoker 56 yo. Status:Active maternal aunt colon cancer Status:Active Mother Comments:colon polyps o f dementia at 89 yo hypothyroid Status:Active Sister 1 Comments:diverticulitis Status:Active Unknown Family Member Name Dates Details Brother 1 Comments:colon polyps HTN Status:Active Daughter 1 Status:Active Daughter 2 Comments:not talk to her any more Status:Active Father Comments:lung cancer abestos is and smoker 56 yo. Status:Active maternal aunt colon cancer Status:Active Mother Comments:colon polyps o f dementia at 89 yo hypothyroid Status:Active Sister 1 Comments:diverticulitis Status:Active Unknown Family Member Name Dates Details Brother 1 Comments:colon polyps HTN Status:Active Daughter 1 Status:Active Daughter 2 Comments:not talk to her any more Status:Active Father Comments:lung cancer abestos is and smoker 56 yo. Status:Active maternal aunt colon cancer Status:Active Mother Comments:colon polyps o f dementia at 89 yo hypothyroid Status:Active Sister 1 Comments:diverticulitis Status:Active Unknown Family Member Name Dates Details Brother 1 Comments:colon polyps HTN Status:Active Daughter 1 Status:Active Daughter 2 Comments:not talk to her any more Status:Active Father Comments:lung cancer abestos is and smoker 56 yo. Status:Active maternal aunt colon cancer Status:Active Mother Comments:colon polyps o f dementia at 89 yo hypothyroid Status:Active Sister 1 Comments:diverticulitis Status:Active Unknown Family Member Name Dates Details Brother 1 Comments:colon polyps HTN Status:Active Daughter 1 Status:Active Daughter 2 Comments:not talk to her any more Status:Active Father Comments:lung cancer abestos is and smoker 56 yo. Status:Active maternal aunt colon cancer Status:Active Mother Comments:colon polyps o f dementia at 89 yo hypothyroid Status:Active Sister 1 Comments:diverticulitis Status:Active Unknown Family Member Name Dates Details Brother 1 Comments:colon polyps HTN Status:Active Daughter 1 Status:Active Daughter 2 Comments:not talk to her any more Status:Active Father Comments:lung cancer abestos is and smoker 56 yo. Status:Active maternal aunt colon cancer Status:Active Mother Comments:colon polyps o f dementia at 89 yo hypothyroid Status:Active Sister 1 Comments:diverticulitis Status:Active Unknown Family Member Name Dates Details Brother 1 Comments:colon polyps HTN Status:Active Daughter 1 Status:Active Daughter 2 Comments:not talk to her any more Status:Active Father Comments:lung cancer abestos is and smoker 56 yo. Status:Active maternal aunt colon cancer Status:Active Mother Comments:colon polyps o f dementia at 89 yo hypothyroid Status:Active Sister 1 Comments:diverticulitis Status:Active Unknown Family Member Name Dates Details Brother 1 Comments:colon polyps HTN Status:Active Daughter 1 Status:Active Daughter 2 Comments:not talk to her any more Status:Active Father Comments:lung cancer abestos is and smoker 56 yo. Status:Active maternal aunt colon cancer Status:Active Mother Comments:colon polyps o f dementia at 89 yo hypothyroid Status:Active Sister 1 Comments:diverticulitis Status:Active Unknown Family Member Name Dates Details Brother 1 Comments:colon polyps HTN Status:Active Daughter 1 Status:Active Daughter 2 Comments:not talk to her any more Status:Active Father Comments:lung cancer abestos is and smoker 56 yo. Status:Active maternal aunt colon cancer Status:Active Mother Comments:colon polyps o f dementia at 89 yo hypothyroid Status:Active Sister 1 Comments:diverticulitis Status:Active Unknown Family Member Name Dates Details Brother 1 Comments:colon polyps HTN Status:Active Daughter 1 Status:Active Daughter 2 Comments:not talk to her any more Status:Active Father Comments:lung cancer abestos is and smoker 56 yo. Status:Active maternal aunt colon cancer Status:Active Mother Comments:colon polyps o f dementia at 89 yo hypothyroid Status:Active Sister 1 Comments:diverticulitis Status:Active Advance Directives No Advanced Directives Records Found Name Dates Details Immunization Registry [place] - Effective on 07/01/2020. Expiration date unspecified Effective:01-Jul-2020 Name Dates Details Immunization Registry [place] - Effective on 07/01/2020. Expiration date unspecified Effective:01-Jul-2020 Name Dates Details Immunization Registry [place] - Effective on 07/01/2020. Expiration date unspecified Effective:01-Jul-2020 Name Dates Details Immunization Registry [place] - Effective on 07/01/2020. Expiration date unspecified Effective:01-Jul-2020 Name Dates Details Immunization Registry [place] - Effective on 07/01/2020. Expiration date unspecified Effective:01-Jul-2020 Name Dates Details Immunization Registry [place] - Effective on 07/01/2020. Expiration date unspecified Effective:01-Jul-2020 Name Dates Details Immunization Registry [place] - Effective on 07/01/2020. Expiration date unspecified Effective:01-Jul-2020 Name Dates Details Immunization Registry [place] - Effective on 07/01/2020. Expiration date unspecified Effective:01-Jul-2020 Name Dates Details Immunization Registry [place] - Effective on 07/01/2020. Expiration date unspecified Effective:01-Jul-2020 Advance Directive Response Recorded Date/ Time Living Will Yes July 19, 2021 8:43am Power of Fire Assistant Yes July 8:43am Summary Purpose Chief Complaint and Reason for Visit Chief Complaint LUE; CARPAL TUNNEL S YNDROME LUE; CARPAL TUNNEL SYNDROME Additional Source Comments Source Comments (unrecognize d section and content) In the event this informatio n is protected by the Federal Confidentiality of Alcohol and Drug Abuse Patient Records regulations: The Federal rules restrict any use of the information to criminally investigate or prosecute any alcohol or drug abuse patient.[facility] Teams (unrecognized sec tion and content) 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 Shashank Morales MD Referring Provider, Other Provi arias Active Dr. Marcin Fong MD Attending Provider Active Team Status: Inactive Member Role Status Dates Vilma Giron NP, FOSTER CARE THERAPIST-C Primary Care Provider Activ e Dr. Shashank Morales MD Attending Provider, Referring P silvia Active INFORMATION SOURCE (unrecogn ized section and content) DATE CREATED AUTHOR 04/20/2023 [facility] DATE CREATED AUTHOR 'S ORGANIZ ATION 04/04/2025 [facility] FOR RECORDS PERTAINING TO PATIENTS WHO ARE OR HAVE BEEN ENROLLED IN A CHEMICAL DEPENDENCY/SUBSTANCEABUSE PROGRAM, SOME INFORMATION MAY BE OMITTED. This clinical summary was aggregated from multiple sources. Caution should be exercised in using it in the provision of clinical care. This summary normalizes information from multiple sources, and as a consequence, information in this document may materially change the coding, format and clinical context of patient data. In addition, data may be omitted in some cases. CLINICAL DECISIONS SHOULD BE BASED ON THE PRIMARY CLINICAL RECORDS. [facility] [employer] [facility]. provides no warranty or guarantee of the accuracy or completeness of information in this document.
--- NOTE | 2025-04-20 02:45 | PCM.HP.STD ---
HPI - General General Date of Admission: 04/20/25 Date of Service: 04/20/25 Chief Complaint: Disequilibrium/vertigo HPI Narrative ELVI ANGEL, is a 74 F who presented to the emergency department at [facility] early on the morning of 04/20/2025 with chief complaint of disequilibrium/vertigo. Patient states she went to bed and was normal at 10 PM and woke up at about 1245 and had disequilibrium/vertigo. She denies specifically that the world is spinning or she is spinning mild overall but feels very off balance and unsteady. It was persistent so she decided to call EMS as she was concerned that she could be having a stroke. She has had some nausea but no vomiting in conjunction and no other significant symptoms. She has no focal weakness or paresthesias and states her vision and speech are normal. She has never had anything like this previously. Vital signs on presentation showed a temperature of 98.7, heart rate 92, respiratory 18, blood pressure was 138/111 and pulse ox was 97% on room air. CBC is unremarkable. Coags are normal. Chemistry panel showed mild dehydration with a BUN of 23 and serum creatinine 1.02 consistent with CKD stage IIIb. Blood sugar was [address] of the brain was unremarkable. CTA of the head neck was unremarkable. EKG is unremarkable. She was seen by stroke neurology in the emergency department and they agreed that she should be evaluated and complete workup for posterior circulation stroke given her symptoms. [facility] Medical History HTN (hypertension) Pneumonia due to 2019-nCoV Acute respiratory failure with hypoxia Home Medications ?Medication ?Instructions ?Recorded ?Last Taken ?Type multivitamin with minerals 1 tab PO DAILY 07/19/21 Unknown History lisinopril 10 mg tablet 10 mg PO DAILY htn 07/21/21 07/18/21 History ascorbic acid (vitamin C) 500 mg 500 mg PO BREAKFAST #0 tabs 07/29/21 Unknown Rx tablet aspirin 81 mg tablet,delayed 162 mg (2 x 81 mg) PO DAILY #14 07/29/21 Unknown Rx release (Adult Low Dose Aspirin) tabs cholecalciferol (vitamin D3) 25 50 mcg (2 x 25 mcg (1,000 unit)) 07/29/21 Unknown Rx mcg (1,000 unit) tablet PO DAILY #0 tabs zinc sulfate 50 mg zinc (220 mg) 220 mg (4.4 x 50 mg zinc (220 mg)) 07/29/21 Unknown Rx capsule PO DAILY #0 caps Allergy/AdvReac Type Severity Reaction Status Date / Time No Known Allergies Allergy Verified 04/20/25 01:09 Family History no significant family his no significant family history Surgical History History of appendectomy History of right hip replacement Social History (Updated 04/20/25 @ 03:[address] Chioma Pressley DO) Smoking Status: Never smoker alcohol intake: never substance use type: does not use what type of physical activity do you participate in: other details: Pickleball and tennis ROS Constitutional Constitutional: Denies anorexia, change in weight, chills, fatigue, fever(s), malaise, night sweats, weakness or other Eyes Eyes: Denies blurry vision, change in eye color, change in vision, discharge from eye(s), double vision, erythema, eye pain, loss of vision or other ENT HEENT: Denies abnormal hearing, dysphagia, ear pain, epistaxis, headache(s), hearing loss, nasal congestion, nasal discharge, post nasal drip, sinus pressure, sore throat or other Cardiovascular Cardiovascular: Denies chest pain, claudication, dyspnea on exertion, edema, lightheadedness, orthopnea, palpitations, paroxysmal nocturnal dyspnea, rapid heart rate, syncope or other Respiratory/Chest Respiratory/Chest: Denies cough, dyspnea, excessive phlegm production, hemoptysis, productive cough, shortness of breath at rest, shortness of breath with exertion, wheezing or other Gastrointestinal Gastrointestinal: Reports nausea; Denies abdominal pain, coffee ground emesis, constipation, diarrhea, dyspepsia, hematemesis, hematochezia, loose stools, melena, vomiting or other Genitourinary Genitourinary: Denies burning urination, difficulty urinating, dysuria, hematuria, nocturia, urinary frequency, urinary hesitancy, urinary incontinence, urinary urgency or other Musculoskeletal Musculoskeletal: Reports joint pain and joint stiffness; Denies arthralgias, back pain, joint swelling, myalgias, neck pain or other Neurologic Neurologic: Reports abnormal gait and disequilibrium; Denies abnormal speech, confusion, dizziness, focal weakness, headache(s), numbness, paresthesias, seizure-like activity, seizures, syncope, tingling, tremor(s) or other Psychiatric Psychiatric: Denies anxiety, depression, homicidal ideation, suicidal ideation or other Allergic/Immunologic Allergic/Immunologic: Denies rhinitis, hives, eczemia, asthma or other Vital Signs Vital Signs Vital Signs: 04/20/25 01:10 04/20/25 01:15 04/20/25 01:43 Temperature 98.7 F 98.7 F Temperature Source Oral Oral Pulse Rate 92 70 66 Respiratory Rate 18 16 15 Blood Pressure 138/111 H 146/83 H 141/72 H Blood Pressure Mean 120 104 95 Pulse Ox 97 98 99 Oxygen Delivery Method Room Air Room Air Room Air 04/20/25 01:47 04/20/25 02:13 04/20/25 02:30 Temperature Temperature Source Pulse Rate 67 68 Respiratory Rate 18 18 Blood Pressure 134/77 H 143/93 H Blood Pressure Mean 96 109 Pulse Ox 99 100 Oxygen Delivery Method Room Air Room Air Room Air 04/20/25 02:34 04/20/25 02:36 Temperature 97.7 F L Temperature Source Pulse Rate 68 68 Respiratory Rate 18 18 Blood Pressure 143/93 H 143/93 H Blood Pressure Mean 109 109 Pulse Ox 100 100 Oxygen Delivery Method Room Air Weight Weight: 73.8 kg Body Mass Index (BMI) 30.7 Physical Exam Const alert, oriented x3, no apparent distress, healthy appearing and well nourished; Negative for average body habitus Constitutional Narrative: Extremely pleasant, obese, white female, sitting up in bed, appears comfortable, nontoxic General Appearance: cooperative HEENT normocephalic, head/scalp atraumatic, hearing grossly normal bilaterally and moist oral mucous membranes HEENT Narrative: Mallampati 2, no thrush Eyes conjunctivae normal Eyes Narrative: No scleral icterus Neck supple Neck Narrative: Trachea midline Resp normal respiratory effort, no retractions, no use of accessory muscles and clear to auscultation bilaterally Auscultation: Negative for rales, rhonchi or wheezes Cardio regular rate, regular rhythm, S1 normal heart sound, S2 normal heart sound, no murmurs, no rub, no gallops and no clicks GI normal to inspection, nondistended, normoactive bowel sounds, soft to palpation and non-tender Extremity no clubbing, cyanosis or edema Extremity Narrative: 2+ pedal and radial pulses Neuro oriented x3, moves all extremities and no focal motor deficits Neuro Narrative: No sensory deficits Coordination / Balance: [id number] test normal Speech: speech normal Psych affect normal Psych Narrative: Very pleasant, interacts appropriately Results Lab / Micro Data 04/20/25 01:18 04/20/25 01:18 Labs: Laboratory Results - last 24 hr 04/20/25 01:18: WBC 7.3, RBC 3.97 L, Hgb 12.8, Hct 36.4 L, MCV 91.7, MCH 32.2 H, MCHC 35.2, RDW Std Deviation 40.1, RDW Coeff of Saul 11.9, Plt Count 324, MPV 9.3, Immature Gran % (Auto) 0.100, Neut % (Auto) 34.8 L, Lymph % (Auto) 54.8 H, Rhea % (Auto) 7.1, Eos % (Auto) 2.7, Baso % (Auto) 0.5, Absolute Neuts (auto) 2.5, Absolute Lymphs (auto) 3.99, Nucleated RBC % 0, PT 12.3, INR 0.9, APTT 30.0 04/20/25 01:53: POC Glucose 107 H Rhythm Strip Rhythm Strip: Sinus Rhythm Rate: 70 Ectopy: None Imaging Radiology Impression Brain CT 04/20/25 01:43 IMPRESSION: Normal unenhanced CT scan of the brain. Reading Location: [place] [id number] Assessment & Plan Assessment/Plan (1) Vertigo: PLAN: Plan Vertigo - Acute onset with wake-up symptoms - Stroke rule out for posterior circulation stroke as per recommendations from stroke neurologist - Check echocardiogram - Check MRI - Check lipids next-check hemoglobin A1c - Start aspirin 81 mg daily - Start atorvastatin 80 mg daily - Hold home antihypertensives to allow for permissive hypertension - As needed antihypertensives per stroke order set - PT/OT/speech therapy per stroke order set - NIH as per stroke order set - Consult neurology Essential hypertension - Hold home lisinopril now for permissive hypertension for now - Restart home antihypertensives when appropriate Osteoarthritis - As needed Tylenol CKD stage IIIa -serum creatinine is 1.02 with a estimated GFR 58 - Avoid nephrotoxins as able Obesity - BMI 30.7 - Recommend weight loss - complicate treatment, prognosis, outcomes DVT prophylaxis - Lovenox subcu daily CODE STATUS Full code Charges/Coding Visit Charges Inpatient E&M: 50072 Init Hosp L2
[2025-04-20 02:50] LABS: Anion Gap 13 (5-15); BUN 23 mg/dL (4-19); BUN/Creat Ratio 22.1 RATIO (10-20); Calcium,Total 9.6 mg/dL (7.6-11.0); Carbon Dioxide 21.1 mmol/L (21.0-32.0); Chloride 105 mmol/L (98-108); Creatinine, Serum 1.02 mg/dL (0.70-1.20); EST Glomerular Filtration Rate 58 (>60); Estimated Creatinine Clearance 44.46 ml/min (50-250); Glucose 101 mg/dL (70-99); Potassium 3.7 mmol/L (3.3-5.1); Sodium Level 139 mmol/L (133-145)
--- OUTSIDE RECORDS SUMMARY | 2025-04-20 03:23 | XMS RPT_ITS | CCD ---
Author Organization [facility] Care Team Providers Care Veneer Glue Spreader Name Role Phone Dossi Crystal MCKEON Unavailable Mona Diaz Unavailable BREE Farrell Unavailable Unavailable Azucena Jeffers Unavailable Unavailable Andrea Hull Unavailable Davie Daniels Unavailable Chantale Lynn Unavailable Unavailable Andrea Hull Unavailable Unavailable Unavailable Mona Diaz MD Unavailable [phone] Davie Daniels Unavailable BREE Farrell LPN Unavailable Unavailable Unavailable Unavailable Corie Rush MD Primary Care Provider Bree GARCIA, WARP SCOURING VAT TENDER-C Vilma Dillard Primary Care Provider Unavailable Dr. Shashank Morales Referring Provider Dr. Shashank Morales Other Provider Dr. Marcin Fong Attending Provider Vilma Giron NP Primary Care UnavailVilma Rosenberg [...] day for four (4) more days AZITHROMYCIN [id number] Tammy LUEVANO carbamide peroxide 65 mg/ml otic [...] as needed for cough GUAIFENESIN-CODEIN E LIQD [id number] Tammy LUEVANO GUAIFENESIN-CODEINE LIQD (4 sources) Start: 12-31-2010 End: 01-05-2011 GUAIFENESIN-CODEIN E LIQD 5 ml every 8 hours as needed for cough GUAIFENESIN-CODEIN E LIQD [id number] Tammy LUEVANO ibuprofen 200 mg oral tablet [...] Range Facility Miscellaneous Lab Procedureo n 05-28-2024 [facility] [place] Normal [facility] Comment on above: Order Comment: [id number] 1 ACD 1 PUR PLE WB [...] (Abs) 0.0 x10E3/uL 0.0-0.1 TESTING PERFORMED AT [facility]. ORIGINAL REPORT ON FILE IN LAB CONTAINS ADDITIONAL TEST SITE INFORMATION. Performed By: #### L 7000.2400, L501.9985, L500.4050, L500.4100, L506.0250, L3300.0960, L503.0105, L801.1541, L506.1000, L801.1543, L100.0100, L801.1545, L801.1547 #### [facility] Laboratory [address] [place], [address] Miscellaneous Lab Procedure 205-28-2024 [facility] [place] 2 Normal [facility] Comment on above: Order Comment: [id number] babesia ser/rt Result Comment: TEST RESULTS LIMITS [...] specific IgM antibody detected. TESTING PERFORMED AT [facility]. ORIGINAL REPORT ON FILE IN LAB CONTAINS ADDITIONAL TEST SITE INFORMATION. Performed By: #### L 7000.2400, L501.9985, L500.4050, L500.4100, L506.0250, L3300.0960, L503.0105, L801.1541, L506.1000, L801.1543, L100.0100, L801.1545, L801.1547 #### [facility] Laboratory [address] [place], [address] Miscellaneous Lab Procedure 3on 05-28-2024 [facility] [place] 3 Normal [facility] Comment on above: Order Comment: [id number] [facility] RBC LAB/RBC/ RT Result Comment: TEST RESULTS LIMITS Magnesium, RBC, 5.0 mg/dL 3.7-7.0 Plasma NOT from cells; may falsely decrease RBC Magnesium levels. TESTING PERFORMED AT [facility]. ORIGINAL REPORT ON FILE IN LAB CONTAINS ADDITIONAL TEST SITE INFORMATION. Performed By: #### L 7000.2400, L501.9985, L500.4050, L500.4100, L506.0250, L3300.0960, L503.0105, L801.1541, L506.1000, L801.1543, L100.0100, L801.1545, L801.1547 #### [facility] Laboratory [address] [place], [address] Miscellaneous Lab Procedure 4on 05-28-2024 [facility] [place] 4 Normal [facility] Comment on above: Order Comment: [id number] ZINC RBC ROYAL/R BC/RT Result Comment: TEST RESULTS LIMITS Zinc, RBC, 1320 ug/dL [phone] TESTING PERFORMED AT [facility]. ORIGINAL REPORT ON FILE IN LAB CONTAINS ADDITIONAL TEST SITE INFORMATION. Performed By: #### L 7000.2400, L501.9985, L500.4050, L500.4100, L506.0250, L3300.0960, L503.0105, L801.1541, L506.1000, L801.1543, L100.0100, L801.1545, L801.1547 #### [facility] Laboratory [address] [place], [address] Vitamin D 1,25-Dihydroxyon 0 05-11-2024 VIT D 1,25 DIHY 36.2 pg/mL Normal 24.8-81.5 [facility] Comment on above: Result Comment: Performed at: [address] [id number] Head Of Store Operations: Telly Rojas MD, Phone: [phone] Performed By: #### L 7000.2400, L501.9985, L500.4050, L500.4100, L506.0250, L3300.0960, L503.0105, L801.1541, L506.1000, L801.1543, L100.0100, L801.1545, L801.1547 #### [facility] Laboratory [address] [facility] [address] [place], [place], [id number] Mycoplasma Pneu IgG / IgMon 05-09-2024 M PNEUMONIA IgG 131 U/mL High 0-99 [facility] Comment on above: Result Comment: Negative: <100 [...] L801.1541, L506.1000, L801.1543, L100.0100, L801.1545, L801.1547 #### [facility] Laboratory [address] [place], [address] M PNEUMONIA IgM < 770 Normal 0-769 [facility] Comment on above: Result Comment: Negative <770 Clinically significant amount of M. pneumoniae antibody not detected. Low Positive 770 - 950 M. pneumoniae specific IgM presumptively detected. It is recommended that another sample be collected 1-2 weeks later to assure reactivity. Positive >950 Highly significant amount of M. pneumoniae specific IgM antibody detected. Performed at: [address] [id number] Head Of Store Operations: Davie Holliday PhD, Phone: [phone] Performed By: #### L 7000.2400, L501.9985, L500.4050, L500.4100, L506.0250, L3300.0960, L503.0105, L801.1541, L506.1000, L801.1543, L100.0100, L801.1545, L801.1547 #### [facility] Laboratory [address] [place], [address] CBC W/Diff, Automatedon 07- Absolute Lymph 2.12 X10 3/uL Normal 0.83-4.51 [facility] Comment on above: Performed By: #### L7000.2400, L501.9985 , L500.4050, L500.4100, L506.0250, L3300.0960, L503.0105, L801.1541, L506.1000, L801.1543, L100.0100, L801.1545, L801.1547 #### [facility] Laboratory [address] [place], [place], [phone] (5[address] Absolute Neut 3.5 X10 3/uL Normal 2.0-7.7 [facility] Comment on above: Performed By: #### L7000.2400, L501.9985 , L500.4050, L500.4100, L506.0250, L3300.0960, L503.0105, L801.1541, L506.1000, L801.1543, L100.0100, L801.1545, L801.1547 #### [facility] Laboratory [address] [facility] [place], [address] (185 Basophils/100 WBC (Bld) 0.3 % Normal 0-1 [facility] Comment on above: Performed By: #### L7000.2400, L501.9985 , L500.4050, L500.4100, L506.0250, L3300.0960, L503.0105, L801.1541, L506.1000, L801.1543, L100.0100, L801.1545, L801.1547 #### [facility] Laboratory [address] [place], [address] Eosinophils/100 WBC (Bld) 1.7 % Normal 0-5 [facility] Comment on above: Performed By: #### L7000.2400, L501.9985 , L500.4050, L500.4100, L506.0250, L3300.0960, L503.0105, L801.1541, L506.1000, L801.1543, L100.0100, L801.1545, L801.1547 #### [facility] Laboratory [address] [place], [place], [id number] Erythrocyte distribution width (RBC) [Ratio] 12.2 % Normal 11.6-14.6 [facility] Comment on above: Performed By: #### L7000.2400, L501.9985 , L500.4050, L500.4100, L506.0250, L3300.0960, L503.0105, L801.1541, L506.1000, L801.1543, L100.0100, L801.1545, L801.1547 #### [facility] Laboratory [address] [place], [address] Hematocrit (Bld) [Volume fraction] 39.3 % Normal 37-47 [facility] Comment on above: Performed By: #### L7000.2400, L501.9985 , L500.4050, L500.4100, L506.0250, L3300.0960, L503.0105, L801.1541, L506.1000, L801.1543, L100.0100, L801.1545, L801.1547 #### [facility] Laboratory [address] [place], [address] Hemoglobin (Bld) [Mass/Vol] 12.8 g/dL Normal 12.0-15.0 [facility] Comment on above: Performed By: #### L7000.2400, L501.9985 , L500.4050, L500.4100, L506.0250, L3300.0960, L503.0105, L801.1541, L506.1000, L801.1543, L100.0100, L801.1545, L801.1547 #### [facility] Laboratory [address] [place], [address] IG% 0.300 Normal 0.0-0.9 [facility] Comment on above: Result Comment: IG% - Immature Granulocy ash (promyelocytes, myelocytes and metamyelocytes) > 1% indicates that a LEFT SHIFT is Present. Performed By: #### L 7000.2400, L501.9985, L500.4050, L500.4100, L506.0250, L3300.0960, L503.0105, L801.1541, L506.1000, L801.1543, L100.0100, L801.1545, L801.1547 #### [facility] Laboratory [address] [place], [address] Lymphocytes/100 WBC (Bld) 35.3 % Normal 19-41 [facility] Comment on above: Performed By: #### L7000.2400, L501.9985 , L500.4050, L500.4100, L506.0250, L3300.0960, L503.0105, L801.1541, L506.1000, L801.1543, L100.0100, L801.1545, L801.1547 #### [facility] Laboratory [address] [place], [address] MCH (RBC) [Entitic mass] 30.7 pg Normal 27.0-32.0 [facility] Comment on above: Performed By: #### L7000.2400, L501.9985 , L500.4050, L500.4100, L506.0250, L3300.0960, L503.0105, L801.1541, L506.1000, L801.1543, L100.0100, L801.1545, L801.1547 #### [facility] Laboratory [address] [place], [address] MCHC (RBC) [Mass/Vol] 32.6 g/dL Normal 32-36 [facility] Comment on above: Performed By: #### L7000.2400, L501.9985 , L500.4050, L500.4100, L506.0250, L3300.0960, L503.0105, L801.1541, L506.1000, L801.1543, L100.0100, L801.1545, L801.1547 #### [facility] Laboratory [address] [place], [address] MCV (RBC) [Entitic vol] 94.2 fL Normal 81-99 [facility] Comment on above: Performed By: #### L7000.2400, L501.9985 , L500.4050, L500.4100, L506.0250, L3300.0960, L503.0105, L801.1541, L506.1000, L801.1543, L100.0100, L801.1545, L801.1547 #### [facility] Laboratory [address] [place], [address] Monocytes/100 WBC (Bld) 4.7 % Normal 0-10 [facility] Comment on above: Performed By: #### L7000.2400, L501.9985 , L500.4050, L500.4100, L506.0250, L3300.0960, L503.0105, L801.1541, L506.1000, L801.1543, L100.0100, L801.1545, L801.1547 #### [facility] Laboratory [address] [place], [address] Neutrophils/100 WBC (Bld) 57.7 % Normal 47-70 [facility] Comment on above: Performed By: #### L7000.2400, L501.9985 , L500.4050, L500.4100, L506.0250, L3300.0960, L503.0105, L801.1541, L506.1000, L801.1543, L100.0100, L801.1545, L801.1547 #### [facility] Laboratory [address] [place], [place], [phone] ([address] Nucleated RBC (Bld) [#/Vol] 0 10*3/uL Normal 0-5 [facility] Comment on above: Performed By: #### L7000.2400, L501.9985 , L500.4050, L500.4100, L506.0250, L3300.0960, L503.0105, L801.1541, L506.1000, L801.1543, L100.0100, L801.1545, L801.1547 #### [facility] Laboratory [address] [place], [address] Platelet mean volume (Bld) [Entitic vol] 9.8 fL Normal 6.2-12.0 [facility] Comment on above: Performed By: #### L7000.2400, L501.9985 , L500.4050, L500.4100, L506.0250, L3300.0960, L503.0105, L801.1541, L506.1000, L801.1543, L100.0100, L801.1545, L801.1547 #### [facility] Laboratory [address] [place], [address] Platelets (Bld) [#/Vol] 330 10*3/uL Normal 150-450 [facility] Comment on above: Performed By: #### L7000.2400, L501.9985 , L500.4050, L500.4100, L506.0250, L3300.0960, L503.0105, L801.1541, L506.1000, L801.1543, L100.0100, L801.1545, L801.1547 #### [facility] Laboratory [address] [place], [place], [id number] RBC (Bld) [#/Vol] 4.17 10*6/uL Low 4.2-5.4 [facility] Comment on above: Performed By: #### L7000.2400, L501.9985 , L500.4050, L500.4100, L506.0250, L3300.0960, L503.0105, L801.1541, L506.1000, L801.1543, L100.0100, L801.1545, L801.1547 #### [facility] Laboratory [address] [place], [address] RDW SD 42.0 fl Normal 35.1-43.9 [facility] Comment on above: Performed By: #### L7000.2400, L501.9985 , L500.4050, L500.4100, L506.0250, L3300.0960, L503.0105, L801.1541, L506.1000, L801.1543, L100.0100, L801.1545, L801.1547 #### [facility] Laboratory [address] [place], [address] WBC (Bld) [#/Vol] 6.0 10*3/uL Normal 4.4-11.0 [facility] Comment on above: Performed By: #### L7000.2400, L501.9985 , L500.4050, L500.4100, L506.0250, L3300.0960, L503.0105, L801.1541, L506.1000, L801.1543, L100.0100, L801.1545, L801.1547 #### [facility] Laboratory [address] [place], [address] Comprehensive Metabolic Prof ilon 05-07-2024 Albumin [Mass/Vol] 3.8 g/dL Normal 3.2-5.0 [facility] Comment on above: Order Comment: N Performed By: #### L 7000.2400, L501.9985, L500.4050, L500.4100, L506.0250, L3300.0960, L503.0105, L801.1541, L506.1000, L801.1543, L100.0100, L801.1545, L801.1547 #### [facility] Laboratory [address] [place], [address] Albumin/Globulin [Mass ratio] 1.0 {ratio} Normal 0.9-2.4 [facility] Comment on above: Order Comment: N Performed By: #### L 7000.2400, L501.9985, L500.4050, L500.4100, L506.0250, L3300.0960, L503.0105, L801.1541, L506.1000, L801.1543, L100.0100, L801.1545, L801.1547 #### [facility] Laboratory [address] [place], [address] ALK P 24 U/L Low 45-117 [facility] Comment on above: Order Comment: N Performed By: #### L 7000.2400, L501.9985, L500.4050, L500.4100, L506.0250, L3300.0960, L503.0105, L801.1541, L506.1000, L801.1543, L100.0100, L801.1545, L801.1547 #### [facility] Laboratory [address] [place], [address] ALT [Catalytic activity/Vol] 24 U/L Normal 13-56 [facility] Comment on above: Order Comment: N Performed By: #### L 7000.2400, L501.9985, L500.4050, L500.4100, L506.0250, L3300.0960, L503.0105, L801.1541, L506.1000, L801.1543, L100.0100, L801.1545, L801.1547 #### [facility] Laboratory [address] [place], [address] AST [Catalytic activity/Vol] 22 U/L Normal 15-37 [facility] Comment on above: Order Comment: N Performed By: #### L 7000.2400, L501.9985, L500.4050, L500.4100, L506.0250, L3300.0960, L503.0105, L801.1541, L506.1000, L801.1543, L100.0100, L801.1545, L801.1547 #### [facility] Laboratory [address] [place], [address] Bilirubin [Mass/Vol] 0.30 mg/dL Normal 0.20-1.00 [facility] Comment on above: Order Comment: N Result Comment: For patients on eltrombopag therapy, use of Dimension [place] TBIL is not recommended. Performed By: #### L 7000.2400, L501.9985, L500.4050, L500.4100, L506.0250, L3300.0960, L503.0105, L801.1541, L506.1000, L801.1543, L100.0100, L801.1545, L801.1547 #### [facility] Laboratory [address] [place], [address] BUN/CRE 21.1 RATIO High 10-20 [facility] Comment on above: Order Comment: N Performed By: #### L 7000.2400, L501.9985, L500.4050, L500.4100, L506.0250, L3300.0960, L503.0105, L801.1541, L506.1000, L801.1543, L100.0100, L801.1545, L801.1547 #### [facility] Laboratory [address] [place], [place], [id number] CA,Total 9.7 mg/dL Normal 8.5-10.1 [facility] Comment on above: Order Comment: N Performed By: #### L 7000.2400, L501.9985, L500.4050, L500.4100, L506.0250, L3300.0960, L503.0105, L801.1541, L506.1000, L801.1543, L100.0100, L801.1545, L801.1547 #### [facility] Laboratory [address] [place], [address] (612) Chloride [Moles/Vol] 107 mmol/L Normal 98-107 [facility] Comment on above: Order Comment: N Performed By: #### L 7000.2400, L501.9985, L500.4050, L500.4100, L506.0250, L3300.0960, L503.0105, L801.1541, L506.1000, L801.1543, L100.0100, L801.1545, L801.1547 #### [facility] Laboratory [address] [place], [place], [id number] CO2 [Moles/Vol] 25.0 mmol/L Normal 21.0-32.0 [facility] Comment on above: Order Comment: N Performed By: #### L 7000.2400, L501.9985, L500.4050, L500.4100, L506.0250, L3300.0960, L503.0105, L801.1541, L506.1000, L801.1543, L100.0100, L801.1545, L801.1547 #### [facility] Laboratory [address] [place], [address] Creatinine [Mass/Vol] 0.95 mg/dL Normal 0.55-1.02 [facility] Comment on above: Order Comment: N Result Comment: The validity of the calculated GFR GFRAA in patients over 70 years has not been determined. Clinical correlation is essential. Performed By: #### L 7000.2400, L501.9985, L500.4050, L500.4100, L506.0250, L3300.0960, L503.0105, L801.1541, L506.1000, L801.1543, L100.0100, L801.1545, L801.1547 #### [facility] Laboratory [address] [place], [place], [id number] EST GFR - AA 74 mL/min Normal >60 [facility] Comment on above: Order Comment: N Result Comment: Afri can Macanese GFR Calc Performed By: #### L 7000.2400, L501.9985, L500.4050, L500.4100, L506.0250, L3300.0960, L503.0105, L801.1541, L506.1000, L801.1543, L100.0100, L801.1545, L801.1547 #### [facility] Laboratory [address] [place], [address] GAP 6 Normal 5-15 [facility] Comment on above: Order Comment: N Performed By: #### L 7000.2400, L501.9985, L500.4050, L500.4100, L506.0250, L3300.0960, L503.0105, L801.1541, L506.1000, L801.1543, L100.0100, L801.1545, L801.1547 #### [facility] [address] [place], [address] GFR/1.73 sq M.predicted among non-blacks MDRD (S/P/Bld) [Vol rate/Area] 62 mL/min/{1.73_m2} Normal >60 [facility] Comment on above: Order Comment: N Result Comment: Non- GFR Calc Performed By: #### L 7000.2400, L501.9985, L500.4050, L500.4100, L506.0250, L3300.0960, L503.0105, L801.1541, L506.1000, L801.1543, L100.0100, L801.1545, L801.1547 #### [facility] [address] [place], [address] Globulin (S) [Mass/Vol] 3.9 g/dL Normal 2.2-4.2 [facility] Comment on above: Order Comment: N Performed By: #### L 7000.2400, L501.9985, L500.4050, L500.4100, L506.0250, L3300.0960, L503.0105, L801.1541, L506.1000, L801.1543, L100.0100, L801.1545, L801.1547 #### [facility] [address] [place], [address] Glucose [Mass/Vol] 88 mg/dL Normal 74-106 [facility] Comment on above: Order Comment: N Performed By: #### L 7000.2400, L501.9985, L500.4050, L500.4100, L506.0250, L3300.0960, L503.0105, L801.1541, L506.1000, L801.1543, L100.0100, L801.1545, L801.1547 #### [facility] [address] [place], [address] Potassium [Moles/Vol] 4.1 mmol/L Normal 3.5-5.1 [facility] Comment on above: Order Comment: N Performed By: #### L 7000.2400, L501.9985, L500.4050, L500.4100, L506.0250, L3300.0960, L503.0105, L801.1541, L506.1000, L801.1543, L100.0100, L801.1545, L801.1547 #### [facility] [address] [place], [place], [id number] Sodium [Moles/Vol] 138 mmol/L Normal 136-145 [facility] Comment on above: Order Comment: N Performed By: #### L 7000.2400, L501.9985, L500.4050, L500.4100, L506.0250, L3300.0960, L503.0105, L801.1541, L506.1000, L801.1543, L100.0100, L801.1545, L801.1547 #### [facility] [address] [place], [address] T PROT 7.7 g/dL Normal 6.4-8.2 [facility] Comment on above: Order Comment: N Performed By: #### L 7000.2400, L501.9985, L500.4050, L500.4100, L506.0250, L3300.0960, L503.0105, L801.1541, L506.1000, L801.1543, L100.0100, L801.1545, L801.1547 #### [facility] [address] [place], [address] Urea nitrogen [Mass/Vol] 20 mg/dL High 7-18 [facility] Comment on above: Order Comment: N Performed By: #### L 7000.2400, L501.9985, L500.4050, L500.4100, L506.0250, L3300.0960, L503.0105, L801.1541, L506.1000, L801.1543, L100.0100, L801.1545, L801.1547 #### [facility] [address] [place], [address] Folates, (Folic Acid)on FOLATES 21.50 ng/mL Normal 3.1-55.4 [facility] Comment on above: Order Comment: N Performed By: #### L 7000.2400, L501.9985, L500.4050, L500.4100, L506.0250, L3300.0960, L503.0105, L801.1541, L506.1000, L801.1543, L100.0100, L801.1545, L801.1547 #### [facility] [address] [place], [address] Hemoglobin A1con 05-07-2024 HbA1c (Bld) [Mass fraction] 5.4 % Normal 3.8-5.6 [facility] Comment on above: Result Comment: Normal < 5.7 % Prediabetic 5.7 - 6.4 % Diabetic >or= 6.5 % Please note range changes. Performed By: #### L 7000.2400, L501.9985, L500.4050, L500.4100, L506.0250, L3300.0960, L503.0105, L801.1541, L506.1000, L801.1543, L100.0100, L801.1545, L801.1547 #### [facility] [address] [place], [address] Lipid Profileon 05-07-2024 Cholesterol [Mass/Vol] 274 mg/dL High 200 [facility] Comment on above: Order Comment: N Result Comment: <200 mg/dL Desirable 200-240 mg/dL Borderline >240 mg/dL High Risk Performed By: #### L 7000.2400, L501.9985, L500.4050, L500.4100, L506.0250, L3300.0960, L503.0105, L801.1541, L506.1000, L801.1543, L100.0100, L801.1545, L801.1547 #### [facility] [address] [place], [address] Cholesterol in HDL [Mass/Vol] 55 mg/dL Normal [facility] Comment on above: Order Comment: N Result Comment: The drugs N-Acetylcysteine and Metamizole may falsely depress this assay. Reference Range HDL <40 mg/dL Low HDL Cholesterol HDL >or= 60 mg/dL High HDL Cholesterol Performed By: #### L 7000.2400, L501.9985, L500.4050, L500.4100, L506.0250, L3300.0960, L503.0105, L801.1541, L506.1000, L801.1543, L100.0100, L801.1545, L801.1547 #### [facility] [address] [place], [place], [address] (7[address] Cholesterol in LDL [Mass/Vol] 162 mg/dL High 0-130 [facility] Comment on above: Order Comment: N Performed By: #### L 7000.2400, L501.9985, L500.4050, L500.4100, L506.0250, L3300.0960, L503.0105, L801.1541, L506.1000, L801.1543, L100.0100, L801.1545, L801.1547 #### [facility] [address] [place], [address] Cholesterol in VLDL [Mass/Vol] 57 mg/dL High 5-40 [facility] Comment on above: Order Comment: N Performed By: #### L 7000.2400, L501.9985, L500.4050, L500.4100, L506.0250, L3300.0960, L503.0105, L801.1541, L506.1000, L801.1543, L100.0100, L801.1545, L801.1547 #### [facility] [address] [place], [place], [id number] Triglyceride [Mass/Vol] 286 mg/dL High [facility] Comment on above: Order Comment: N Result Comment: The drugs N-Acetylcysteine and Metamizole may falsely depress this assay. Serum Triglycerides Reference Interval Normal <150 mg/dL Borderline high 150 - 199 mg/dL High 200 - 499 mg/dL Very High > or = 500 mg/dL Performed By: #### L 7000.2400, L501.9985, L500.4050, L500.4100, L506.0250, L3300.0960, L503.0105, L801.1541, L506.1000, L801.1543, L100.0100, L801.1545, L801.1547 #### [facility] [address] [place], [place], [id number] Vitamin B12on 05-07-2024 Cobalamin (Vitamin B12) [Mass/Vol] 416 pg/mL Normal 211-911 [facility] Comment on above: Performed By: #### L7000.2400, L501.9985 , L500.4050, L500.4100, L506.0250, L3300.0960, L503.0105, L801.1541, L506.1000, L801.1543, L100.0100, L801.1545, L801.1547 #### [facility] [address] [place], [place], [id number] Vitamin D,25 Hydroxyon 05-07 Vitamin D 25-OH 37.2 ng/mL Normal [facility] Comment on above: Result Comment: Vitamin D 25(OH) Status Range Deficiency <20 ng/mL (50nmol/L) Insufficiency 20 - 30 ng/mL (50 - 75 nmol/L) Sufficiency 30 - 100 ng/mL (75 - 250 nmol/L) Toxicity >100 ng/mL (>250 nmol/L) Performed By: #### L 7000.2400, L501.9985, L500.4050, L500.4100, L506.0250, L3300.0960, L503.0105, L801.1541, L506.1000, L801.1543, L100.0100, L801.1545, L801.1547 #### [facility] [address] [place], [address] Folate (12936)Ordered By: stem Data Communications Engineer on 06-16-2020 Folate [Mass/Vol] 11.5 ng/mL Normal [facility] Work Phone: Comment on above: A serum folate concentration of less jorge n 3.1 ng/mL isconsidered to represent clinical deficiency. PATIENT WAS FASTINGP ERFORMED BY: [address] [id number] BY: NITHYA [place] [id number] [facility] [id number] Methymalonic Acid, Serum (83 091)Ordered By: Wireless Operator on 06-16-2020 Methylmalonate [Moles/Vol] 270 nmol/L Normal 0-378 [facility] Work Phone: Comment on above: PATIENT WAS FASTINGPERFORMED BY: [address] [id number] BY: [facility] [id number] Information: NURSE DRAW Methymalonic Acid, Serum (57876) [facility] Normal [facility] Work Phone: Comment on above: This test was developed and its performa nce characteristicsdetermined by [employer]. It has not been cleared or approvedby the Food and Drug Administration. PATIENT WAS FASTINGP ERFORMED BY: [address] [id number] BY: [facility] [id number] Information: NURSE DRAW SARS-CoV-2 Antibody, IgGOrde red By: Wireless Operator on 06-16-2020 SARS-CoV-2 Antibody, IgG METH3 Normal [facility] Work Phone: Comment on above: See [employer] SARS-CoV-2 Ab, IgG Test(s) 280468-DURV- CoV-2 Antibody, IgG; 460671-PogZfdrn SARS-CoV-2 Ab, IgGhas not been FDA cleared [...] otherviruses or pathogens.PATIENT WAS FASTINGPERFORMED BY: NITHYA [facility]ileCo[facility] HospitalRlogjw1444 [facility] [id number] Information: NURSE DRAW Vitamin B-12 (cyanocobalamin ) (76620)Ordered By: Wireless Operator on 06-16-2020 Cobalamin (Vitamin B12) [Mass/Vol] 371 pg/mL Normal 232-1245 [facility] Work Phone: Comment on above: PATIENT WAS FASTINGPERFORMED BY: [address] [id number] BY: LabCoCo[facility] University HospitalJkwcor3558 [facility] [id number]; OV 07/01 Office Visit: Spine Visit- L ow back painon 05-24-2017 Documentation of current medications (procedure) Done Invalid Interpretation Code [employer] [facility] Work Phone: Documentation of current medications (procedure) T Invalid Interpretation Code [employer] [facility] Work Phone: Protein mass conc Done [facility] Work Phone: Protein mass conc T [facility] Work Phone: Office Visit: Spine Visit- L ow back painon 05-16-2017 Documentation of current medications (procedure) Done Invalid Interpretation Code [facility] Work Phone: Documentation of current medications [...] BP Systolic 114 mm[Hg] BREE Farrell LPN [facility] Work Phone: Comment on above: Patient Position: Sitting; Cuff Location : Left Arm; Cuff Size: Standard 09-30-2020 09:44-0500 BSA (Body Surface Area) 1.69 m2 BREE Farrell CATHERINE [facility] Work Phone: 09-30-2020 09:44-0500 Height 153.67 cm BREE Farrell ELECTRONIC FUNDS TRANSFER COORDINATOR [facility] Work Phone: 09-30-2020 09:44-0500 Pulse (Heart Rate) 76 /min BREE Farrell LPN [facility] Work Phone: Comment on above: Pattern: Regular 09-30-2020 09:44-0500 Pulse Oximetry 98 % [facility] Work Phone: Comment on above: Room air 09-30-2020 09:44-0500 Respiratory Rate 18 /min BREE Farrell LPN [facility] Work Phone: Comment on above: Pattern: Unlabored 09-30-2020 09:44-0500 SaO2% (BldA) [Mass fraction] 98 % BREE Farrell CATHERINE [facility]; [facility] Work Phone: Comment on above: Room air 07-01-2020 06:55-0400 BMI (Body Mass Index) 29.86 kg/m2 [facility] Work Phone: 07-01-2020 06:55-0400 Body Temperature 97 [degF] [facility] Work Phone: Comment on above: Method: Thermal Scan 07-01-2020 06:55-0400 Body weight 71.23 kg [facility] Work Phone: 07-01-2020 06:55-0400 BP [...] BP Systolic 105 mm[Hg] Crystal Retana DC [facility] Work Phone: 12-31-2010 10:21-0500 Pulse Oximetry 97 % Crystal Retana DC [facility] Work Phone: Encounters Encounter Date Encounter Type Care Provider Facility Start: 07-22-2025 ambulatory Vilma milner WARP SCOURING VAT TENDER Facility:[facility] Start: 05-07-2024 End: 05-07-2024 ambulatory Vilma Giron WARP SCOURING VAT TENDER Facility:[facility] Start: 02-22-2024 Non-patient / Non-visit WARP SCOURING VAT TENDER-Neida Giron NP [facility] Start: 02-22-2024 End: 02-22-2024 ambulatory WARP SCOURING VAT TENDER-Neida Giron NP [facility] Work Phone: Start: 02-22-2024 End: 02-22-2024 Patient encounter procedure WARP SCOURING VAT TENDER-Neida Giron NP [facility]-Pulmonary Services/Neurology Work Phone: Start: 05-05-2022 ambulatory Corie Nash Work Phone: Internal Medicine [facility] Start: 08-25-2021 End: 09-02-2021 Office outpatient visit 25 minutes Mona Diaz [...] End: 11-10-2020 Phone Encounter Mona Diaz [facility] [facility] Start: 09-30-2020 End: 09-30-2020 Phone Encounter Mona Diaz [facility] Start: 09-30-2020 Review Mona Diaz [...] End: 06-09-2020 Lab Order Mona Diaz [facility] Start: 06-03-2020 End: 06-03-2020 Periodic [...] Emergency Department Summary Comments: See Note; NOTES: [facility] Medical Records Department [address] [place] [address] Emergency Department Summary 07/19/21 MR#: [id number] Acct: [id number] Name: ELVI ANGEL Rep #: [id number] : 1950 70 From: Travon Mortensen DO [...] to the ER for evaluation by EMS. [facility] Medications multivitamin with minerals [Multi-Daily W/Minerals] [...] (Auto) 71.2 H Lymph % (Auto) 23.9 Noble % (Auto) 3.2 Eos % (Auto) 0.0 [...] due to 2019-nCoV Disposition Disposition: Acute Care [facility] What to do if you have Problems For any increased pain, shortness of breath, bleeding, nausea or vomiting, chest pain, or any unexpected problems, contact your Primary Care Provider. Call [facility] ([phone]) or report to the closest Emergency Room. Call 911 if necessary. 07/19/21 0757 <Electronically signed by Travon Mortensen DO> Cosigner Signature (if applicable): CC: Dr. Mona Diaz MD Signed Mona Diaz MD Work Phone: Start: 07-19-2021 End: 08-26-2021 Chest 1 View (Portable) Comments: See Note; NOTES: [facility] Imaging Services [address] [place] [address] Chest 1 View (Portable) MR#: [id number] Acct: [id number] Name: ELVI ANGEL Rep #: [id number] : 1950 F 70 From: Demarcus Victoria MD PCP: Dr. Mona Diaz MD Status: PRE ER Study: Chest 1 View (Portable) Date of Exam: 07/19/21 Exam# [id number] Ordering Dr: Travon Mortensen DO STUDY: X-RAY [...] Dr. Mona Diaz MD; Travon Mortensen DO Director Heart: Signed Mona Diaz MD Work Phone: Start: 09-23-2020 End: 09-23-2020 Dexa Bone Density Study Comments: See Note; NOTES: [facility] Imaging Services [address] [place] [address] Dexa Bone Density Study MR#: [id number] Acct: [id number] Name: ELVI ANGEL Rep #: [id number] : 1950 F 69 From: Cruz horn MD PCP: Dr. 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 Mona Diaz MD Director Heart: Signed Mona Diaz Work Phone: Start: 09-23-2020 End: 09-23-2020 SCREEN MAMM (CAD) W/NEELAM BILAT Comments: See Note; NOTES: [facility] Imaging Services [address] [place] [address] SCREEN MAMM (CAD) W/NEELAM BILAT MR#: [id number] Acct: [id number] Name: ELVI ANGEL Rep #: [id number] : 1950 F 69 From: Cruz horn MD PCP: Dr. Mona Diaz MD Status: [facility] Study: SCREEN MAMM (CAD) W/NEELAM BILAT Date of Exam: 11/23/19 Exam# [id number] Ordering Dr: Mona Diaz MD MAMMOGRAPHY - [...] delay biopsy of a clinically suspicious abnormality. [id number] Electronically Signed: Cruz Castaneda, at 9:27 EST , Service support , CC: Dr. Mona Diaz MD Director Heart: Signed Mona Diaz Work Phone: Start: 08-03-2019 [...] Author Start: 08-03-2024 LIPID SCREEN LIPID SCREEN [facility] Start: 08-03-2022 DIABETES SCREEN DIABETES SCREEN [facility] Start: 07-08-2022 Influenza vaccination INFLUENZA (#1) [facility] Start: 04-15-2022 Colonoscopy COLONOSCOPY [facility] Start: 04-15-2022 COLORECTAL CANCER SCREENING COLORECTAL CANCER SCREENING [facility] Start: 11-07-2021 ADVANCE DIRECTIVE DISCUSSION ADVANCE DIRECTIVE DISCUSSION [facility] Start: 07-14-2021 Iaadiadoo influenza 2019 Novel Coronavirus (COVID-19), AYSHA (17241) [facility]; [facility] Work Phone: Start: 06-01-2021 Assay of parathormone PARATHORMONE ( 24230) [facility]; [facility] Work Phone: Comment on above: 6 weeks Start: 06-01-2021 Calcium ionized CALCIUM, IONIZ ED (67603) [facility]; [facility] Work Phone: Comment on above: 6 weeks Start: 06-01-2021 Basic metabolic pane l calcium total Metabolic Panel, Basic (37113) [facility]; [facility] Work Phone: Comment on above: 6 weeks Start: 05-16-2021 ANNUAL PCP TEAM SYSTEMS PROTECTION TECHNICIAN JAY DISEASE VISIT ANNUAL PCP TEAM CHRONIC DISEASE VISIT [facility] Start: 09-30-2020 Lipid panel LIPID PANEL (69388) [facility] Work Phone: Start: 09-30-2020 Comprehensive metabo lic panel METABOLIC PANEL, COMPREHENSIVE (65561) [facility] Work Phone: Start: 09-30-2020 Blood count manual c ell count each CBC with auto diff (91895) [facility] Work Phone: Start: 08-03-2020 Mammography MAMMOGRAM [facility] Start: 06-03-2020 Assay of folic acid serum Folate (47651) [facility] Work Phone: Start: 06-03-2020 Organic acid 1 quantitative Methymalonic Acid, Serum (92091) [facility] Work Phone: Start: 06-03-2020 Cobalamin (Vitamin B 12) [Mass/Vol] Vitamin B-12 (cyanocobalamin) (26609) [facility] Work Phone: Start: 05-08-2020 Adult depression screening assessment DEPRESSION SCREENING [facility] Start: 09-03-2017 PNEUMOCOCCAL: 65+ (2 - PCV) PNEUMOCOCCAL: 65+ (2 - PCV) [facility] Start: 05-31-2017 End: 05-31-2017 Appointment Appointment [facility] [...] of 2) SHINGRIX VACCINE (1 of 2) [facility] Start: 1995 COLOGUARD (FIT-DNA) COLOGUARD (FIT-D NA) [facility] Start: [address] COLONOGRAPHY [facility] Start: 1995 FECAL OCCULT BLOOD FECAL OCCULT BLOO D [facility] Start: 1995 SIGMOIDOSCOPY SIGMOIDOSCOPY [facility] Start: 02-24-1987 Urine microalbumin profile DTAP,TDAP,TD (7 - Tdap) [facility] Start: 1968 BP CONTROLLED (<130/80) BP CONTROLLE D (<130/80) [facility] Start: 05-28-1951 COVID-19 VACCINE (#1) COVID-19 VACCI NE (#1) [facility] End: 06-04-2023 Screening mammography bi 2-view breast inc cad PEDRO SCREENING Radiology Routine Encounter for screening mammogram for breast cancer 1 Occurrences starting 05/05/2022 until 06/04/2023 [facility] Work Phone: Comment on above: 1 Occurrences starti ng 05/05/2022 until 06/04/2023 [facility] Work Phone: [facility] Work Phone: [facility] Work Phone: Immunizations Immunization Date Immunization Notes Care Provider [facility] 09-03-2016 influenza, injectabl e, quadrivalent, contains preservative Corie Rush MD Work Phone: [facility] Work Phone: 09-03-2016 pneumococcal polysaccharide vaccine, 23 valent Mona Diaz [facility] Work Phone: 02-05-1987 tetanus toxoid, redu braydon diphtheria toxoid, and acellular pertussis vaccine, adsorbed Mona Diaz [facility] Work Phone: 02-24-1977 diphtheria and tetan us toxoids, adsorbed for pediatric use Corie Rush MD Work Phone: [facility] 04-15-1962 diphtheria and tetan us toxoids, adsorbed for pediatric use Corie Rush MD Work Phone: [facility] 11-07-1961 trivalent poliovirus vaccine, live, oral Corie Rush MD Work Phone: [facility] 02-22-1961 trivalent poliovirus vaccine, live, oral Corie Rush MD Work Phone: [facility] 10-13-1959 trivalent poliovirus vaccine, live, oral Corie Rush MD Work Phone: [facility] 07-03-1956 diphtheria, tetanus toxoids and acellular pertussis vaccine Corie Rush MD Work Phone: [facility] 11-27-1951 diphtheria, tetanus toxoids and acellular pertussis vaccine Corie Rush MD Work Phone: [facility] 07-17-1951 diphtheria, tetanus toxoids and acellular pertussis vaccine Corie Rush MD Work Phone: [facility] 06-19-1951 diphtheria, tetanus toxoids and acellular pertussis vaccine Corie Rush MD Work Phone: [facility] Payers Date Payer Category Payer Self-pay [id number] 2024 Unknown [id number] 2017 Unknown LEYDA BLUE [facility] S AND BLUE [facility] MEDIBLUE ACCESS [id number] 2017-Present [phone] [address] [place] [address] [facility] [id number] Unknown Leyda BC/BS Unknown [id number] Unknown [id number] Social History Date Type Detail Facility Current [...] Tobacco smoking status NHIS Never smoked tobacco [facility] Start: 05-16-2020 Alcohol intake Current non-dr slasher sawyer of alcohol (finding) [facility] Start: 1950 Sex Assigned At Not on file C [facility] Start: 07-19-2021 Tobacco smoking status NHIS Unknown if ever smoked [facility] Start: 1950 Sex Assigned At Female [facility] Goals Date Patient Goal Desired Activity /State Procedure note 02-22-2024 Note Date & Type Note Facility 02-22-2024 Procedure note [facility] Clinical Note 04-13-2023 Note Date & Type Note Facility 04-13-2023 Note Patient Outreach (IN [facility]) ANDRE ANGEL ([id number]) 1950 F Date Time Provider Department 04/13/23 CORIE RUSH During your visit today, we recorded the following information about you: Allergies As of Date: 04/13/2023 (No Known Allergies) Date Reviewed: 05/16/2020 Reviewed by: Robyn Pierre LPN - Fully Assessed Visit Diagnosis:Encounter for screening mammogram for breast cancer [Z12.31] Order(s):[facility] SCREENING [3024050] Order #: [id number] FUTURE Prescriptions as of 04/18/2023 - carbamide [...] Encounter Status:Closed by CURTIS STRONG on 04/18/23 [facility] Clinical Note 05-05-2022 Note Date & Type Note Facility 05-05-2022 Note Patient Outreach (IN TMMN) ANDRE ANGEL ([id number]) 1950 F Date Time Provider Department 05/05/22 CORIE RUSH During your visit today, we recorded the following information about you: Allergies As of Date: 05/05/2022 (No Known Allergies) Date Reviewed: 05/16/2020 Reviewed by: Robyn Pierre LPN - Fully Assessed Visit Diagnosis:Encounter for screening mammogram for breast cancer [Z12.31] Order(s):[facility] SCREENING [[id number]] Order #: [id number] FUTURE Prescriptions as of 05/10/2022 - carbamide [...] Encounter Status:Closed by CURTIS STRONG on 05/10/22 [facility] Evaluation note Note Date & Type Note Facility Evaluation note Diagnosis Encounter for screening mammogram for breast cancer documented in this encounter [facility] Evaluation note Note Date & Type Note Facility Evaluation note No assessment information availa [facility] Work Phone: Instructions Note Date [...] Information Online using Patient Portal and 3rd Green Party Apps Indication:Hypertension, benign Start: Instruction Type:Patient Education [...] 2-VIEW BREAST INC CAD Corie Rush MD [address] [place] [address] [facility] [address] [facility] [address] [facility] [place] [address] Referral ID Status Reason Start Date Expiration Date Visits Requested Visits Authorized [id number] Pending Review Auto-Generat ed Referral 05/05/2022 06/04/2023 1 1 [facility] Instructions Name Dates Details How to access [...] Records Found Name Dates Details Immunization Registry [place] - Effective on 07/01/2020. Expiration date unspecified Effective:01-Jul-2020 Name Dates Details Immunization [facility] [place] - Effective on 07/01/2020. Expiration date unspecified Effective:01-Jul-2020 Name Dates Details Immunization [facility] [place] - Effective on 07/01/2020. Expiration date unspecified Effective:01-Jul-2020 Name Dates Details Immunization [facility] [place] - Effective on 07/01/2020. Expiration date unspecified Effective:01-Jul-2020 Name Dates Details Immunization [facility] [place] - Effective on 07/01/2020. Expiration date unspecified Effective:01-Jul-2020 Name Dates Details Immunization [facility] [place] - Effective on 07/01/2020. Expiration date unspecified Effective:01-Jul-2020 Name Dates Details Immunization [facility] [place] - Effective on 07/01/2020. Expiration date unspecified Effective:01-Jul-2020 Name Dates Details Immunization [facility] [place] - Effective on 07/01/2020. Expiration date unspecified Effective:01-Jul-2020 Name Dates Details Immunization Registry [place] - Effective on 07/01/2020. Expiration date unspecified Effective:01-Jul-2020 Advance Directive Response Recorded Date/ Time Living Will Yes July 19, 2021 8:43am Power of Comb Capper Yes July 8:43am Summary Purpose Chief Complaint [...] or prosecute any alcohol or drug abuse patient.[facility] Care Teams (unrecognized sec tion and content) Veneer Glue Spreader Relationship Specialty Start Date End Date Corie Rush MD [address] [place] [address] PCP - General Internal Medicine 05/31/17 Team Status: Active Member Role Status Dates Vilma Giron NP, WARP SCOURING VAT TENDER-C Primary Care Provider Activ e Team Status: Active Member Role Status Dates Vilma Giron NP, WARP SCOURING VAT TENDER-C Primary Care Provider Activ e Dr. Shashank Morales MD Referring Provider, Other Provi arias Active Dr. Marcin Fong MD Attending Provider Active Team Status: Inactive Member Role Status Dates Vilma Giron NP, WARP SCOURING VAT TENDER-C Primary Care Provider Activ e Dr. Shashank Morales MD Attending Provider, Referring P silvia Active INFORMATION SOURCE (unrecogn ized section and content) DATE CREATED AUTHOR 04/20/2023 [facility] DATE CREATED AUTHOR 'S ORGANIZ ATION 04/04/2025 [facility] FOR RECORDS PERTAINING TO PATIENTS WHO ARE [...] BE BASED ON THE PRIMARY CLINICAL RECORDS. [facility] [employer] [facility]. provides no warranty or guarantee of the accuracy or completeness of information in this document.
[2025-04-20] MEDS: Aspirin 81 MG TAB.CHEW PO (04:40)
[2025-04-20 04:44] LABS: Hemoglobin A1c 5.9 % (<=5.6)
[2025-04-20 07:02] LABS: Absolute Lymphocyte Count 2.35 X10^3/uL (0.83-4.51); Absolute Neutrophil Count 3.6 X10^3/uL (2.0-7.7); Basophil# 0.03 X10^3/uL; Basophil% 0.5 % (0-1); Eosinophil# 0.05 X10^3/uL; Eosinophils% 0.8 % (0-5); Hematocrit 34.4 % (37-47); Hemoglobin 11.9 g/dL (12.0-15.0); Lymphocyte # 2.35 X10^3/ul (0.83-4.51); Lymphocyte % 36.8 % (19-41); Mean Corp Hgb Conc 34.6 g/dL (32-36); Mean Corpuscular Hgb 31.8 pg (27.0-32.0); Mean Platelet Vol. 8.9 fl (6.2-12.0); Monocyte# 0.33 X10^3/uL; Monocyte% 5.2 % (0-10); NRBC Flagged by Analyzer 0 % (0-5); Neutrophil # 3.62 X10^3/uL (2.7-7.7); Neutrophil % 56.5 % (47-70); Platelet Count 283 K/mm3 (150-450); RBC Distribution Width CV 11.9 % (11.6-14.6); Red Blood Count 3.74 M/mm3 (4.2-5.4); White Blood Count 6.4 K/mm3 (4.4-11.0)
[2025-04-20 07:50] LABS: ALB/GLOB Ratio 1.6 RATIO (0.9-2.4); AST(SGOT) 21 U/L (<=31); Alanine Aminotransfer ALT/SGPT 12 U/L (<=34); Alkaline Phosphatase 27 U/L (35-104); Anion Gap 11 (5-15); BUN 17 mg/dL (4-19); Calcium,Total 9.4 mg/dL (7.6-11.0); Carbon Dioxide 20.8 mmol/L (21.0-32.0); Chloride 107 mmol/L (98-108); Creatinine, Serum 0.81 mg/dL (0.70-1.20); EST Glomerular Filtration Rate 76 (>60); Estimated Creatinine Clearance 54.46 ml/min (50-250); Globulin 2.4 g/dL (2.2-4.2); Glucose 108 mg/dL (70-99); Magnesium 2.1 mg/dL (1.5-2.2); Phosphorus 3.5 mg/dL (2.7-4.5); Potassium 4.3 mmol/L (3.3-5.1); Protein, Total 6.4 g/dL (5.9-8.4); Sodium Level 138 mmol/L (133-145); Thyroid Stim Hormone (TSH) 0.919 uIU/mL (0.300-4.200); Total Bilirubin 0.15 mg/dL (0.00-1.30)
[2025-04-20] MEDS: Acetaminophen 325 MG Tablet 650 MG PO (09:07)
[2025-04-20] MEDS: LORazepam 0.5 MG Tablet PO (09:07)
[2025-04-20 09:16] LABS: Cholesterol 257 mg/dL (<=200); High Density Lipoprotein 45 mg/dL; Low Density Lipoprotein Calc. 171 mg/dL; Triglycerides 204 mg/dL; Very Low Density Lipoprotein 41 mg/dL (5-40); cholesterol:hdl ratio screen 5.69
--- NOTE | 2025-04-20 09:38 | CASEMGMT ---
Social Work PHQ9 depression screen completed due to possible TIA. Pt with score of 5 indicating mild depression. Pt easily discussing her lifestyle and that she is very active, engaging in pickleball, tennis and line dancing weekly. Pt states that she has many friend groups and a sister that she talks to frequently and are supportive and denies need for counseling services. Pt is independent with all ADLs and IADLs and expresses no concerns with returning home at time of discharge. Pt states her daughter will transport. SENAIT Archibald
--- NOTE | 2025-04-20 10:43 | NEURO.CONS ---
Assessment and Plan: Neuro Assessment/Plan 74 y/o woman with h/o right hip replacement and HTN p/w disequilibrium/off balance and unsteady/veering to left associated with mild nausea. Denies any weakness or sensory changes. CT head- no acute intracranial process. CTA- no LVO. A1c.5.9. LDL-171. MRI brain - no acute stroke. Diagnosis: TIA Plan: ASA and statin. Follow up TTE. Control of vascular risk factors. Follow up with ENT as an outpatient. I personally attended this patient and spent a total time of 75 minutes evaluating this patient including clinical assessment, review of chart, medical history imaging, and determining appropriate treatment and workup. HPI Consult Data Date of Consult: 04/20/25 HPI Narrative HPI Narrative: 74 y/o woman with h/o right hip replacement and HTN p/w disequilibrium/off balance and unsteady/veering to left associated with mild nausea. Denies any weakness or sensory changes. CT head- no acute intracranial process. CTA- no LVO. A1c.5.9. LDL-171. MRI brain - no acute stroke. Today, she reports feeing back to normal. She reports some problem with hearing in her left ear lately but no redness, pain or discharge. [facility] Medical History HTN (hypertension) Pneumonia due to 2019-nCoV Acute respiratory failure with hypoxia Home Medications ?Medication ?Instructions ?Recorded ?Last Taken ?Type multivitamin with minerals 1 tab PO DAILY 07/19/21 Unknown History lisinopril 10 mg tablet 10 mg PO DAILY htn 07/21/21 07/18/21 History ascorbic acid (vitamin C) 500 mg 500 mg PO BREAKFAST #0 tabs 07/29/21 Unknown Rx tablet aspirin 81 mg tablet,delayed 162 mg (2 x 81 mg) PO DAILY #14 07/29/21 Unknown Rx release (Adult Low Dose Aspirin) tabs cholecalciferol (vitamin D3) 25 50 mcg (2 x 25 mcg (1,000 unit)) 07/29/21 Unknown Rx mcg (1,000 unit) tablet PO DAILY #0 tabs zinc sulfate 50 mg zinc (220 mg) 220 mg (4.4 x 50 mg zinc (220 mg)) 07/29/21 Unknown Rx capsule PO DAILY #0 caps Allergy/AdvReac Type Severity Reaction Status Date / Time No Known Allergies Allergy Verified 04/20/25 01:09 Family History no significant family his Surgical History History of appendectomy History of right hip replacement Social History (Updated 04/20/25 @ 03:[address] Chioma Pressley DO) Smoking Status: Never smoker alcohol intake: never substance use type: does not use what type of physical activity do you participate in: other details: Pickleball and tennis Vital Signs Vital Signs Vital Signs: 04/20/25 01:10 04/20/25 01:15 04/20/25 01:43 Temperature 98.7 F 98.7 F Temperature Source Oral Oral Pulse Rate 92 70 66 Pulse Strength Respiratory Rate 18 16 15 Blood Pressure 138/111 H 146/83 H 141/72 H Blood Pressure Mean 120 104 95 Blood Pressure Source Blood Pressure Position Blood Pressure Location Pulse Ox 97 98 99 Oxygen Delivery Method Room Air Room Air Room Air 04/20/25 01:47 04/20/25 02:13 04/20/25 02:30 Temperature Temperature Source Pulse Rate 67 68 Pulse Strength Respiratory Rate 18 18 Blood Pressure 134/77 H 143/93 H Blood Pressure Mean 96 109 Blood Pressure Source Blood Pressure Position Blood Pressure Location Pulse Ox 99 100 Oxygen Delivery Method Room Air Room Air Room Air 04/20/25 02:34 04/20/25 02:36 04/20/25 03:09 Temperature 97.7 F L Temperature Source Pulse Rate 68 68 72 Pulse Strength Respiratory Rate 18 18 18 Blood Pressure 143/93 H 143/93 H 93/63 Blood Pressure Mean 109 109 73 Blood Pressure Source Blood Pressure Position Blood Pressure Location Pulse Ox 100 100 97 Oxygen Delivery Method Room Air Room Air 04/20/25 03:45 04/20/25 04:00 04/20/25 08:00 Temperature 98.7 F 98.7 F 97.8 F Temperature Source Oral Oral Oral Pulse Rate 77 77 69 Pulse Strength Respiratory Rate 15 15 17 Blood Pressure 134/94 H 134/94 H 120/84 H Blood Pressure Mean 107 107 96 Blood Pressure Source Monitor Monitor Monitor Blood Pressure Position Semi-Fowlers Semi-Fowlers Sitting Blood Pressure Location Right Arm Right Arm Right Arm Pulse Ox 97 97 98 Oxygen Delivery Method Room Air Room Air Room Air 04/20/25 08:14 04/20/25 08:20 04/20/25 08:49 Temperature Temperature Source Pulse Rate Pulse Strength Normal (2+) Respiratory Rate Blood Pressure Blood Pressure Mean Blood Pressure Source Blood Pressure Position Blood Pressure Location Pulse Ox Oxygen Delivery Method Room Air Room Air Weight Weight: 66.4 kg Body Mass Index (BMI) 26.7 EEG Results Procedure Details EEG Procedure Details: ELVI ANGEL is a 74 year old F with a past medical history of , who presents for evaluation of Electroencephalogram on DATE at TIME Physical Exam Narrative General: The patient appears nutritionally appropriate, well-groomed, and appears comfortable in no acute distress. Mental Status:? The patient?s mental status was normal including orientation.? Language was intact.? Cranial nerves:? Visual prabhakar full, and extra-ocular motion was intact. Symmetric face. Motor: Normal strength in all extremities. Sensation: Intact to touch in all extremities.? Coordination:? Bilateral finger to nose was normal.? There was no dysmetria. Gait:? deferred. Lab / Micro Data 04/20/25 06:50 04/20/25 06:50 Labs: Laboratory Results - last 24 hr 04/20/25 01:18: WBC 7.3, RBC 3.97 L, Hgb 12.8, Hct 36.4 L, MCV 91.7, MCH 32.2 H, MCHC 35.2, RDW Std Deviation 40.1, RDW Coeff of Saul 11.9, Plt Count 324, MPV 9.3, Immature Gran % (Auto) 0.100, Neut % (Auto) 34.8 L, Lymph % (Auto) 54.8 H, Kerr % (Auto) 7.1, Eos % (Auto) 2.7, Baso % (Auto) 0.5, Absolute Neuts (auto) 2.5, Absolute Lymphs (auto) 3.99, Nucleated RBC % 0, PT 12.3, INR 0.9, APTT 30.0, Sodium 139, Potassium 3.7, Chloride 105, Carbon Dioxide 21.1, Anion Gap 13, BUN 23 H, Creatinine 1.02, Estim Creat Clear Calc 44.46 L, Est GFR (MDRD) Non-Af 58 L, BUN/Creatinine Ratio 22.1 H, Glucose 101 H, Hemoglobin A1c 5.9 H, Calcium 9.6 04/20/25 01:53: POC Glucose 107 H 04/20/25 06:50: WBC 6.4, RBC 3.74 L, Hgb 11.9 L, Hct 34.4 L, MCV 92.0, MCH 31.8, MCHC 34.6, RDW Std Deviation 40.0, RDW Coeff of Saul 11.9, Plt Count 283, MPV 8.9, Immature Gran % (Auto) 0.200, Neut % (Auto) 56.5, Lymph % (Auto) 36.8, Kerr % (Auto) 5.2, Eos % (Auto) 0.8, Baso % (Auto) 0.5, Absolute Neuts (auto) 3.6, Absolute Lymphs (auto) 2.35, Nucleated RBC % 0, Sodium 138, Potassium 4.3, Chloride 107, Carbon Dioxide 20.8 L, Anion Gap 11, BUN 17, Creatinine 0.81, Estim Creat Clear Calc 54.46, Est GFR (MDRD) Non-Af 76, BUN/Creatinine Ratio 21.0 H, Glucose 108 H, Calcium 9.4, Phosphorus 3.5, Magnesium 2.1, Total Bilirubin 0.15, AST 21, ALT 12, Alkaline Phosphatase 27 L, Total Protein 6.4, Albumin 4.0, Globulin 2.4, Albumin/Globulin Ratio 1.6, Triglycerides 204 H, Cholesterol 257 H, LDL Cholesterol, Calc 171, VLDL Cholesterol 41 H, HDL Cholesterol 45, Cholesterol/HDL Ratio 5.69, TSH 0.919 Rhythm Strip Rhythm Strip: Sinus Rhythm Rate: 70 Ectopy: None Imaging Radiology Impression Brain CT 04/20/25 01:43 IMPRESSION: Normal unenhanced CT scan of the brain. Reading Location: [place] [address] Head/Neck CTA 04/20/25 01:43 IMPRESSION: Normal CT angiography of the head. Normal bilateral cervical carotid and vertebral arteries. Reading Location: [place] [address] Active Medications Active Medications Active Medications: Current Medications Generic Name Dose Route Start Last Admin Trade Name Freq PRN Reason Stop Dose Admin Acetaminophen 650 mg 04/20/25 03:43 04/20/25 09:07 Acetaminophen 325 Mg Tablet PO 650 mg Q4H PRN PRN Administration Pain 1-10 Or Fever>99.6 Aspirin 81 mg 04/21/25 08:00 Aspirin 81 Mg Tab.Chew PO BREAKFAST [facility] Atorvastatin Calcium 80 mg 04/20/25 22:00 Atorvastatin Calcium 80 Mg Tablet PO QHS [facility] Cholecalciferol 50 mcg 04/20/25 10:00 Cholecalciferol (Vit D3) 25 Mcg Tablet (1,000 Units) PO DAILY [facility] Enoxaparin Sodium 40 mg 04/20/25 10:00 Enoxaparin 40 Mg/0.4 Ml Syringe SC DAILY [facility] Hydralazine HCl 5 mg 04/20/25 03:43 Hydralazine 20 Mg/Ml Vial IV 04/21/25 03:43 Q30M PRN maintain BP parameters with HR <60 Sodium Chloride 250 mls @ 15 mls/hr 04/20/25 03:52 IV .[id number] PRN Saline Flush Sodium Chloride 250 mls @ 15 mls/hr 04/20/25 03:52 IV .[id number] PRN Additional IVPB Infusion Labetalol HCl 10 - 20 mg 04/20/25 03:43 Labetalol 20 Mg/4 Ml Vial IV 04/21/25 03:43 Q10M PRN PRN maintain BP parameters with HR >/=60 Lorazepam 0.5 mg 04/20/25 07:46 04/20/25 09:07 Lorazepam 0.5 Mg Tablet PO 0.5 mg X1 PRN Administration ANXIETY Multivitamins/Minerals 1 tablet 04/20/25 08:00 Multivitamins,Ther [facility] Ondans[facility]ron HCl 4 mg 04/20/25 03:43 Ondansetron 4 Mg/2 Ml Vial IV Q8H PRN PRN NAUSEA/VOMITING Prochlorperazine Edisylate 5 mg 04/20/25 03:43 Prochlorperazine 10 Mg/2 Ml Vial IV Q4H PRN PRN Breakthrough Nausea/Vomiting Senna/Docusate Sodium 2 tablet 04/20/25 03:43 Senna/Docusate Sodium 1 Tablet PO BID PRN PRN Constipation Sodium Chloride 10 - 40 ml 04/20/25 03:52 0.9% Saline Lock 10 Ml Syringe IV UD PRN SALINE FLUSH Sodium Chloride 10 - 40 ml 04/20/25 03:55 0.9% Saline Lock 10 Ml Syringe IV UD PRN SALINE FLUSH NIHSS NIHSS Nursing Documentation NIHSS Nursing Documentation: NIHSS: Ischemic Stroke/TIA Start: 04/20/25 03:43 Text: For ICU Patients: NIH sroke scale at Status: Active presentation and every 2 hours or with change in RN caregiver Freq: Q4H Protocol: Activity Type Activity Date Activity User E-sign Co-sign Detail Recorded Client Recorded Date Recorded By Document 04/20/25 08:00 desktop 04/20/25 08:14 04/20/25 08:00 NIH Stroke Scale [NIHSS] A score of 0 is normal or asymptomatic . Total possible score is 42. Inpatient: RN or Physician to activate a stroke alert for onset of new stroke symptoms or with NIHSS increase >/= 3 points. Following change in neurological status, NIHSS will be performed per physician order or more frequently PRN. -1a. Level of Consciousness 0 - Alert; keenly responsive -1b. LOC Questions 0 - Answers BOTH questions correctly -1c. LOC Commands 0 - Performs BOTH tasks correctly -2. Best Gaze 0 - Normal -3. Visual 0 - No visual loss -4. Facial Palsy 0 - Normal symmetrical movements -5a. Left Arm 0 - No drift; arm holds 90 ( or 45) degrees for full 10 seconds -5b. Right Arm 0 - No drift; arm holds 90 ( or 45) degrees for full 10 seconds -6a. Left Leg 0 - No drift; leg holds 30- degree position for full 5 seconds -6b. Right Leg 0 - No drift; leg holds 30- degree position for full 5 seconds -7. Limb Ataxia 0 - Absent -8. Sensory 0 - Normal; no sensory loss -9. Best Language 0 - No aphasia; normal -10. Dysarthria 0 - Normal -11. Extinction and Inattention 0 - No abnormality -Total 0 Query Text:A score of 0 is normal or asymptomatic. Total possible score is 42 . ED: Notify Physician for NIHSS increase by > / = 3 points. Inpatient: RN or Physician to activate a stroke alert for NIHSS increase of > / = 3 points. Coma Scale [Assess] -Eye Opening Spontaneous -Motor Obeys Commands -Verbal Oriented [Total] -Coma Scale Total 15 NIHSS 1a. Level of Consciousness: 0 - Alert; keenly responsive 1b. LOC Questions: 0 - Answers BOTH questions correctly 1c. LOC Commands: 0 - Performs BOTH tasks correctly 2. Best Gaze: 0 - Normal 3. Visual: 0 - No visual loss 4. Facial Palsy: 0 - Normal symmetrical movements 5a. Left Arm: 0 - No drift; arm holds 90 (or 45) degrees for full 10 seconds 5b. Right Arm: 0 - No drift; arm holds 90 (or 45) degrees for full 10 seconds 6a. Left Le - No drift; leg holds 30-degree position for full 5 seconds 6b. Right Le - No drift; leg holds 30-degree position for full 5 seconds 7. Limb Ataxia: 0 - Absent 8. Sensory: 0 - Normal; no sensory loss 9. Best Language: 0 - No aphasia; normal 10. Dysarthria: 0 - Normal 11. Extinction and Inattention: 0 - No abnormality Total: 0
[2025-04-20] MEDS: Multivitamins,Ther W-Minerals Tablet 1 TABLET PO (11:01)
[2025-04-20] MEDS: Cholecalciferol (VIT D3) 25 MCG TABLET (1,000 UNITS) 50 MCG PO (11:02)
[2025-04-20] MEDS: Enoxaparin 40 MG/0.4 ML Syringe SC (11:02)
--- NOTE | 2025-04-20 12:14 | PCM.DC ---
Discharge Instructions Diet Discharge Diet: No restrictions DC O2, CPAP, BIPAP needs Home O2 Discharge instructions: No Dressing / Incision Discharge Activity: No Restrictions Follow Up Care Test Results: Test results from this visit will be discussed in further detail at your follow-up appointment, if applicable. Discharge Plan Admission Admit Date/Time: 04/20/25 02:38 Primary Reason for Your Visit: Dizziness Attending Provider: Enrico Leal Primary Care Provider: Vilma Giron GAMING CAGE CASHIER Consulting Providers: Elliott Szymanski; Vinod Lopez; Yasmin Glass; Geetha Shaw; Viviana Cannon; Gentry Walsh; Diane High; Naveed Gaston; Juan Bravo; Daniel Resendez; Kay Martin; Poncho Ruffin; Stephanie Ayers; Fany Bush; Kayli Escobar; Adalberto Marino; Mark Gonzalez; Dionicio Juan; Kianna Pressley; Baldomero Bella; Chioma Pressley Discharge Orders/Prescriptions Prescriptions: New atorvastatin 80 mg Tablet 80 mg PO QHS 90 Days Qty: 90 0RF aspirin 81 mg Tablet,Chewable 81 mg PO BREAKFAST 90 Days Qty: 90 0RF meclizine 12.5 mg tablet 12.5 mg PO TID PRN (Reason: dizziness) 7 Days Qty: 21 0RF Continued multivitamin with minerals Tablet 1 tab PO DAILY lisinopril 10 mg tablet 10 mg PO DAILY Patient Comments: TAKE 1 TABLET BY MOUTH ONCE DAILY cholecalciferol (vitamin D3) 25 mcg (1,000 unit) Tablet 50 mcg PO DAILY Qty: 0 0RF ascorbic acid (vitamin C) 500 mg Tablet 500 mg PO BREAKFAST Qty: 0 0RF Discontinued zinc sulfate 50 mg zinc (220 mg) Capsule 220 mg PO DAILY Qty: 0 0RF aspirin [Adult Low Dose Aspirin] 81 mg tablet,delayed release (DR/EC) 162 mg PO DAILY Qty: 14 0RF Rx Instructions: take for 7 days Referrals / Follow Up: Vilma Giron GAMING CAGE CASHIER, GAMING CAGE CASHIER-C [Primary Care Provider] - Disposition Disposition (needs filled in before D/C Order can be placed): Home, Self Care
--- NOTE | 2025-04-20 12:14 | PCM.DC.SUM ---
Providers Date of Admission: 04/20/25 Date of Discharge: 04/20/25 Primary Care Physician: MONROE Burrell Consultations 04/20/25 03:43 Consult: Tele-Neurology Routine Consulting Provider: [facility] Reason for Consult: Acute Ischemic Stroke/TIA EMERGENT Consult: No MD Notified: Yes Date Notified: 04/20/25 Time Notified: 03:59 Method of Notification: Answering Service Nursing Unit Staff Notify [facility] of Tele-Neurology Consult: Yes Reason For Visit: DIZZINESS Diagnosis Discharge Diagnosis (1) Vertigo: Status: Acute Code(s): R42 - Dizziness and giddiness Medications at Discharge Home Medications multivitamin with minerals 1 tab PO DAILY 07/19/21 lisinopril 10 mg tablet 10 mg PO DAILY htn 07/21/21 ascorbic acid (vitamin C) 500 mg tablet 500 mg PO BREAKFAST #0 tabs 07/29/21 cholecalciferol (vitamin D3) 25 mcg (1,000 unit) tablet 50 mcg (2 x 25 mcg (1,000 unit)) PO DAILY #0 tabs 07/29/21 aspirin 81 mg chewable tablet 81 mg PO BREAKFAST 90 days #90 tabs 04/20/25 atorvastatin 80 mg tablet 80 mg PO QHS 90 days #90 tabs 04/20/25 meclizine 12.5 mg tablet 12.5 mg PO TID PRN dizziness 7 days #21 tabs 04/20/25 Hospital Course Operations None Procedures EKG, Transthoracic echo and - (CT brain, CTA head/neck, MRI brain) Summary of Care Provided Minutes Spent on Discharge: 35 Hospital Course: Patient is a 74-year-old female who presented to [facility] ED 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 Short hospital course as noted below. Patient discharged home in stable condition on the afternoon of 04/20. 1. Vertigo, CVA ruled out ? Neurology followed. CT brain, CTA head/neck and MRI brain normal. Echo unremarkable. Worked with PT and OT and did very well, no ataxia on ambulation. Lipid panel did show very elevated total cholesterol 257, LDL 171, HDL 45. A1c 5.9%. Per neurology, symptoms most consistent with TIA versus vertigo. Will discharge home on baby aspirin and high intensity statin. Short course of meclizine as needed ordered for symptom control. Recommended follow-up with ENT as an outpatient as well. Stable for discharge home on 04/20. 2. Essential hypertension ? Held lisinopril on admission for permissive hypertension, okay to resume on discharge. Total clinical time spent by myself addressing the patient's medical issues, reviewing all the data, and collaborating with patient's care team: 35 minutes. Physical Exam Const alert, oriented x3, no apparent distress and average body habitus Constitutional Narrative: Pleasant elderly female, sitting back comfortably in bed, conversing normally, in no acute distress. General Appearance: cooperative and comfortable HEENT normocephalic, head/scalp atraumatic, hearing grossly normal bilaterally, nasal mucous membranes and turbinates normal and moist oral mucous membranes Eyes PERRL, EOMs intact bilaterally and conjunctivae normal Neck full ROM Chest inspection of chest normal Resp normal respiratory effort, normal air movement, no use of accessory muscles and clear to auscultation bilaterally Cardio regular rate, regular rhythm, no murmurs and peripheral pulses 2+ throughout GI normal to inspection, nondistended, normoactive bowel sounds, soft to palpation, non-tender and non-distended Back/Spine normal ROM Extremity normal to inspection, full ROM and no pedal edema Skin no rashes or lesions noted Neuro moves all extremities and no focal motor deficits Speech: speech normal Motor Exam: strength 5/5 throughout Psych mental status grossly normal Weight / BMI Weight Weight: 66.4 kg Body Mass Index (BMI) 26.7 ABG / Lab / Microbiology Data 04/20/25 06:50 04/20/25 06:50 Laboratory: Laboratory Results - last 24 hr 04/20/25 01:18: WBC 7.3, RBC 3.97 L, Hgb 12.8, Hct 36.4 L, MCV 91.7, MCH 32.2 H, MCHC 35.2, RDW Std Deviation 40.1, RDW Coeff of Saul 11.9, Plt Count 324, MPV 9.3, Immature Gran % (Auto) 0.100, Neut % (Auto) 34.8 L, Lymph % (Auto) 54.8 H, [place] % (Auto) 7.1, Eos % (Auto) 2.7, Baso % (Auto) 0.5, Absolute Neuts (auto) 2.5, Absolute Lymphs (auto) 3.99, Nucleated RBC % 0, PT 12.3, INR 0.9, APTT 30.0, Sodium 139, Potassium 3.7, Chloride 105, Carbon Dioxide 21.1, Anion Gap 13, BUN 23 H, Creatinine 1.02, Estim Creat Clear Calc 44.46 L, Est GFR (MDRD) Non-Af 58 L, BUN/Creatinine Ratio 22.1 H, Glucose 101 H, Hemoglobin A1c 5.9 H, Calcium 9.6 04/20/25 01:53: POC Glucose 107 H 04/20/25 06:50: WBC 6.4, RBC 3.74 L, Hgb 11.9 L, Hct 34.4 L, MCV 92.0, MCH 31.8, MCHC 34.6, RDW Std Deviation 40.0, RDW Coeff of Saul 11.9, Plt Count 283, MPV 8.9, Immature Gran % (Auto) 0.200, Neut % (Auto) 56.5, Lymph % (Auto) 36.8, [facility] % (Auto) 5.2, Eos % (Auto) 0.8, Baso % (Auto) 0.5, Absolute Neuts (auto) 3.6, Absolute Lymphs (auto) 2.35, Nucleated RBC % 0, Sodium 138, Potassium 4.3, Chloride 107, Carbon Dioxide 20.8 L, Anion Gap 11, BUN 17, Creatinine 0.81, Estim Creat Clear Calc 54.46, Est GFR (MDRD) Non-Af 76, BUN/Creatinine Ratio 21.0 H, Glucose 108 H, Calcium 9.4, Phosphorus 3.5, Magnesium 2.1, Total Bilirubin 0.15, AST 21, ALT 12, Alkaline Phosphatase 27 L, Total Protein 6.4, Albumin 4.0, Globulin 2.4, Albumin/Globulin Ratio 1.6, Triglycerides 204 H, Cholesterol 257 H, LDL Cholesterol, Calc 171, VLDL Cholesterol 41 H, HDL Cholesterol 45, Cholesterol/HDL Ratio 5.69, TSH 0.919 Radiography Diagnostic Testing: Radiology Impression Brain CT 04/20/25 01:43 IMPRESSION: Normal unenhanced CT scan of the brain. Reading Location: [id number] Head/Neck CTA 04/20/25 01:43 IMPRESSION: Normal CT angiography of the head. Normal bilateral cervical carotid and vertebral arteries. Reading Location: [id number] Brain MRI 04/20/25 02:43 IMPRESSION: No acute process. Reading [facility] Echocardiogram 04/20/25 02:43 Interpretation Summary The LV ejection fraction is 60 %. Left ventricular systolic function is normal. Trivial mitral valve insufficiency. Trivial tricuspid valve insufficiency. Ordering Physician: Chioma Pressley Referring Physician: Vilma Giron Performed By: Marti Molina RDCS D/C Instructions DC O2, CPAP, BIPAP Needs Home O2 Discharge instructions: No Meaningful Use Info Meaningful Use Meaningful Use Diagnoses (Choose all that apply): None applicable Ischemic Stroke Statin Dosing Therapy Reference: STATIN DOSE THERAPY REFERENCE: * Patients > 75 years receive moderate or high dose statin therapy. * Patients 75 years or YOUNGER should receive HIGH intensity statin dose unless contraindicated. You will be required to document reason for non-treatment if statin daily dose does not meet guidelines. HIGH DOSE STATIN THERAPY DAILY Atorvastatin > than or = to 40 mg Rosuvastatin > than or = to 20 mg Amlodipine + Atorvastatin > than or = to 2.5/40 mg Ezetimibe + Simvastatin 10/80 mg Simvastatin 80mg Discharge Plan Admission Admit Date/Time: 04/20/25 02:38 Primary Reason for Your Visit: Dizziness Attending Provider: Enrico Leal Primary Care Provider: Vilma Giron CLOTH WEAVER Consulting Providers: Elliott Szymanski; Vinod Lopez; Yasmin Glass; Geetha Shaw; Viviana Cannon; Gentry Walsh; Diane High; Naveed Gaston; Juan Bravo; Daniel Resendez; Kay Martin; Poncho Ruffin; Stephanie Ayers; Fany Bush; Kayli Escobar; Adalberto Marino; Mark Gonzalez; Dionicio Juan; Kianna Pressley; Baldomero Bella; Chioma Pressley Discharge Orders/Prescriptions Prescriptions: New atorvastatin 80 mg Tablet 80 mg PO QHS 90 Days Qty: 90 0RF aspirin 81 mg Tablet,Chewable 81 mg PO BREAKFAST 90 Days Qty: 90 0RF meclizine 12.5 mg tablet 12.5 mg PO TID PRN (Reason: dizziness) 7 Days Qty: 21 0RF Continued multivitamin with minerals Tablet 1 tab PO DAILY lisinopril 10 mg tablet 10 mg PO DAILY Patient Comments: TAKE 1 TABLET BY MOUTH ONCE DAILY cholecalciferol (vitamin D3) 25 mcg (1,000 unit) Tablet 50 mcg PO DAILY Qty: 0 0RF ascorbic acid (vitamin C) 500 mg Tablet 500 mg PO BREAKFAST Qty: 0 0RF Discontinued zinc sulfate 50 mg zinc (220 mg) Capsule 220 mg PO DAILY Qty: 0 0RF aspirin [Adult Low Dose Aspirin] 81 mg tablet,delayed release (DR/EC) 162 mg PO DAILY Qty: 14 0RF Rx Instructions: take for 7 days Referrals / Follow Up: Vilma Giron NP, CLOTH WEAVER-C [Primary Care Provider] - Disposition Disposition (needs filled in before D/C Order can be placed): Home, Self Care Charges/Coding Visit Charges Inpatient E&M: 75887 Disch Hosp >30min
== END 2025-04-20 13:27 | disposition home or self-care (01) ==
LOC: ED 02:42 → PCU 03:20
PROVIDERS: Admitting Provider Internal Medicine; Emergency Provider Emergency Medicine; PCP Nurse Practitioner Family; Visit Provider Hospitalist
DX: R42 Dizziness and giddiness (principal); N18.32 Chronic kidney disease, stage 3b; Z79.82 Long term (current) use of aspirin; E86.0 Dehydration; I12.9 Hypertensive chronic kidney disease with stage 1 through stage 4 chronic kidney disease, or unspecified chronic kidney disease; E78.00 Pure hypercholesterolemia, unspecified; Z79.899 Other long term (current) drug therapy; M19.90 Unspecified osteoarthritis, unspecified site; E66.9 Obesity, unspecified; Z68.30 Body mass index [BMI] 30.0-30.9, adult; R11.0 Nausea; I08.1 Rheumatic disorders of both mitral and tricuspid valves
CPT/HCPCS: 36415; 70450; 70496; 70498; 70551; 80048; 80053; 80061; 82962; 83036; 83735; 84100; 84443; 85025; 85610; 85730; 93005; 93306; 96372; 97161; 99221; 99285; Q9967; G0378

== ENCOUNTER → 2025-04-24 | Outpatient (CLI) | payer MEDICARE, SELFPAY ==
--- NOTE | 2025-04-24 13:55 | NEURO ---
NCS and/or EMG Patient Report Ordering Doctor: Shashank Morales DATE OF SERVICE: 04/24/25 Pat presents for electrodiagnostic testing of the right upper limb. She reports numbness in the first 2 digits of the right hand. Electrodiagnostic findings: Right median motor nerve demonstrates normal distal latency, amplitude and conduction velocity. Right ulnar motor response within normal limits. Normal median and ulnar F?waves. Prolonged right median sensory latency is noted at the wrist. Needle EMG testing was performed the right upper limb. All muscles tested showed no evidence of denervation with normal motor unit action potential potentials Electrodiagnostic impression: This is an abnormal study right upper limb 1. Electrodiagnostic findings are suggestive of right-sided median mononeuropathy. This consistent with a mild right carpal tunnel syndrome. Multi Select Codes Neurology Neurology Interp Codes: 20550-58 Musc test done w/n test comp (interp) and 09769-01 Nrv cndj test 7-8 studies (interp)
== END | disposition home or self-care (01) ==
PROVIDERS: PCP Nurse Practitioner Family; Referring Provider Specialist; Visit Provider Specialist
DX: G56.01 Carpal tunnel syndrome, right upper limb (principal)
CPT/HCPCS: 95886; 95910

== ENCOUNTER → 2025-05-16 | Outpatient (CLI) | payer MEDICARE, SELFPAY ==
[2025-05-16 11:13] LABS: Hematocrit 38.8 % (37-47); Hemoglobin 13.2 g/dL (12.0-15.0); Immature Granulocytes Count 0.010 X10^3/uL (0.0-0.0); Mean Corp Hgb Conc 34.0 g/dL (32-36); Mean Corpuscular Volume 93.0 fL (81-99); Mean Platelet Vol. 9.0 fl (6.2-12.0); NRBC Flagged by Analyzer 0 % (0-5); Platelet Count 347 K/mm3 (150-450); RBC Distribution Width CV 11.8 % (11.6-14.6); RBC Distribution Width SD 40.3 fl (35.1-43.9); Red Blood Count 4.17 M/mm3 (4.2-5.4); White Blood Count 6.6 K/mm3 (4.4-11.0)
[2025-05-16 11:51] LABS: AST(SGOT) 26 U/L (<=31); Alanine Aminotransfer ALT/SGPT 18 U/L (<=34); Albumin, Serum 4.4 g/dL (3.4-4.8); Alkaline Phosphatase 23 U/L (35-104); Anion Gap 11 (5-15); BUN 21 mg/dL (4-19); BUN/Creat Ratio 22.6 RATIO (10-20); Calcium,Total 10.2 mg/dL (7.6-11.0); Carbon Dioxide 24.4 mmol/L (21.0-32.0); Chloride 104 mmol/L (98-108); Globulin 2.9 g/dL (2.2-4.2); Glucose 101 mg/dL (70-99); Potassium 4.6 mmol/L (3.3-5.1)
== END | disposition home or self-care (01) ==
PROVIDERS: PCP Nurse Practitioner Family; Referring Provider Specialist; Visit Provider Specialist
DX: Z01.810 Encounter for preprocedural cardiovascular examination (principal)
CPT/HCPCS: 36415; 80053; 85025; 93005